=== PATIENT | male | born 1960 | race Caucasian/White ===

== ENCOUNTER 2017-10-12 06:08 | Inpatient (IN) ==
[2017-10-12] MEDS ORDERED: Sod Chloride 0.9% Inj 1,000 ML IV.SIG ONE (06:12)
[2017-10-12] MEDS ORDERED: Pantoprazole Inj 80 MG in Sodium Chlor 0.9% Inj 35 ML IV.SIG ONE (06:30)
--- NOTE | 2017-10-12 06:39 | ED ---
HPI General Chief complaint: Nausea/Vomiting/Diarrhea Stated complaint: Vomiting/Resp Time Seen by Provider: 10/12/17 06:11 History of Present Illness HPI Narrative: 57-year-old male presents to the emergency department from home by EMS transport for evaluation of upper GI bleed. Upon EMS arrival patient was noted to be up on his bed vomiting bright red blood with clots from his oropharynx and nares. Patient also had bright red blood in the gastrostomy tube being of his PEG tube. Patient was noted to be hypotensive and pale. Patient was given a 400 cc bolus of normal saline for blood pressure of 87 systolic. Patient's blood pressure reportedly improved to 120. Patient was estimated to have approximately 800 cc of blood and clot in the toilet and on the bed per the paramedics. Patient was diagnosed with head and neck cancer 6 months ago while he was living in [place] all of his care has been through the [facility] system he just completed 38 radiation treatments last week and 7 rounds of Erbitux chemotherapy as well. Patient has not had any GI bleed history. Patient's had no black or tarry or bloody stools. Patient does complain of abdominal pain. Related Data Home Medications Medication Instructions Recorded Confirmed albuterol sulfate [ProAir HFA] 2 puff INHALATION Q4-6H PRN 10/12/17 10/12/17 amlodipine 10 mg PO DAILY 10/12/17 10/12/17 aspirin [Aspir-81] 81 mg PO DAILY 10/12/17 10/12/17 budesonide-formoterol [Symbicort] 2 puff INHALATION BID 10/12/17 10/12/17 carvedilol 3.125 mg PO BID 10/12/17 10/12/17 cholecalciferol (vitamin D3) 4,000 unit PO DAILY 10/12/17 10/12/17 [Vitamin D3] clopidogrel 75 mg PO DAILY 10/12/17 10/12/17 docusate sodium [Doc-Q-Lace] 100 mg PO DAILY 10/12/17 10/12/17 losartan 25 mg PO DAILY 10/12/17 10/12/17 metformin 500 mg PO DAILY 10/12/17 10/12/17 omega 2-wwi-iix-fish oil [Fish Oil] 10/12/17 oxycodone mg PO PRN 10/12/17 quetiapine 100 mg PO HS 10/12/17 10/12/17 rosuvastatin 20 mg PO DAILY 10/12/17 10/12/17 sertraline [Zoloft] 50 mg PO DAILY 10/12/17 10/12/17 tamsulosin 0.4 mg PO DAILY 10/12/17 10/12/17 thiamine HCl (vitamin B1) [Vitamin 100 mg PO DAILY 10/12/17 10/12/17 B-1] Allergies Allergy/AdvReac Type Severity Reaction Status Date / Time acetaminophen Allergy Severe Wheezing Verified 10/12/17 06:11 [From Tylenol-Codeine #3] codeine Allergy Severe Wheezing Verified 10/12/17 06:11 [From Tylenol-Codeine #3] gabapentin Allergy Severe Hives Verified 10/12/17 06:11 Review of Systems Except as stated in HPI: all other systems reviewed are negative PMFSH History History Provided By: Family Member (Head and neck cancer; CAD, hypertension, diabetes, dyslipidemia, PAD, cardiac catheterization with multiple stents, carotid stents, left upper extremity stents, bilateral lower extremity stents, PEG tube, COPD, questionable cirrhosis, previous tobaccoism previous alcohol use ) Medical History Medical History CAD (coronary artery disease) (Acute) Diabetes (Acute) Throat cancer (Acute) PAD (peripheral artery disease) (Acute) Presence of arterial stent (Acute) Social History Social History Substance History: No History of Abuse Smoking Status: Former smoker How Often Do You Have a Drink Containing Alcohol: Never Recent Travel in [facility] within the Last 8 Weeks: No Recent Out of Country Travel within the Last 8 Weeks: No Immunization History Tetanus Immunization: >5 Years Hx Influenza Vaccine This Season: No Exam Narrative Exam Narrative: GENERAL: Well-nourished, well-developed patient. Ill-appearing male resting supine with nonrebreather mask in place and dried blood about the nares and mouth with mild pallor hypertensive systolic pressure 86; no stridor no hoarseness no respiratory distress. SKIN: Focused skin assessment warm/dry. HEAD: Normocephalic. EYES: No scleral icterus. No injection or drainage. No conjunctival pallor ENT : Edentulous scant dried blood in oropharynx no clots. NECK: Supple, trachea midline. No JVD or lymphadenopathy. Marked erythema with trachea midline and tenderness to palpation to the left paratracheal area. CARDIOVASCULAR: Regular rate and rhythm without murmurs, gallops, or rubs. RESPIRATORY: Breath sounds equal bilaterally. No accessory muscle use. GASTROINTESTINAL: Abdomen soft, diffusely tender with voluntary guarding tender , nondistended. PEG tube in place. MUSCULOSKELETAL: No cyanosis, or edema. BACK: Nontender without obvious deformity. No CVA tenderness. Course Reevaluation(s) Reevaluation #1: Aggregate critical care time was 35 minutes. Time to perform other separately billable procedures was not included in the critical care time. My time did not include minutes spent treating any other patients simultaneously or on activities that did not directly contribute to the patient' s treatment. The services I provided to this patient were to treat and/or prevent clinically significant deterioration that could result in: shock, respiratory failure, I provided critical care services requiring my management, as noted below: Chart data review, documentation time, medication orders and management, vital sign assessments/reviewing monitor data, ordering and reviewing lab tests, ordering and interpreting/reviewing x-rays and diagnostic studies, care of the patient and discussion of the patient with the admitting physicians. Consultations Consultation #1: discussed case with Dr Maximilian Izaguirre honing machine operator tool for admission and Dr Holloway inspector general Time: 07:13 Initial Documented Vital Signs Temperature 98.7 F 10/12/17 06:12 Pulse Rate 91 H 10/12/17 06:12 Respiratory Rate 15 10/12/17 06:12 Blood Pressure 86/52 L 10/12/17 06:12 Pulse Oximetry 100 10/12/17 06:12 Last Documented Vital Signs Temperature 98.7 F 10/12/17 06:12 Pulse Rate 87 10/12/17 07:48 Respiratory Rate 24 10/12/17 07:48 Blood Pressure 121/73 10/12/17 07:48 Pulse Oximetry 99 10/12/17 07:17 Medical Decision Making MDM Narrative Medical decision making narrative: 57-year-old male with throat/head neck cancer recently completing a round of chemotherapy and radiation therapy awakened from sleep with nausea and copious vomiting of red blood and clots with hypotension brief period of normotensive pressure after 400 cc bolus of normal saline and presents here hypotensive with nonrebreather mask in place emergency release blood ordered 2 units as well as bolus of normal saline Protonix bolus and infusion ordered and stat ABG identifies respiratory alkalosis with pH of 7.56 PCO2 of 24 and PO2 of 136 on 4 L/min nasal cannula bicarb is 21 base excess -0.7 with hemoglobin of 8.8 Differential Diagnosis Differential Diagnosis: Upper GI bleed, esophageal varices, erosive gastritis/ peptic ulcer disease, viscus perforation, tumor necrosis with Medical Records None available for review Lab Data Lab results reviewed: Yes I reviewed the patient's lab results. Result diagrams: 10/12/17 06:45 10/12/17 06:45 Lab Results 10/12/17 10/12/17 10/12/17 Range/Units 06:30 06:45 06:45 WBC 13.3 H (4.0-11.0) th/mm3 RBC 3.88 L (4.50-5.90) mil/mm3 Hgb 9.1 L (13.0-17.0) gm/dL Hct 29.0 L (39.0-51.0) % MCV 74.7 L (80.0-100.0) fL MCH 23.4 L (27.0-34.0) pg MCHC 31.3 L (32.0-36.0) % RDW 17.3 H (11.6-17.2) % Plt Count 319 (150-450) th/mm3 MPV 8.2 (7.0-11.0) fL Neut % (Auto) 78.4 H (16.0-70.0) % Lymph % (Auto) 10.3 (9.0-44.0) % [place] % (Auto) 9.2 H (0.0-8.0) % Eos % (Auto) 1.6 (0.0-4.0) % Baso % (Auto) 0.5 (0.0-2.0) % Neut # (Auto) 10.4 H (1.8-7.7) th/mm3 Lymph # (Auto) 1.4 (1.0-4.8) th/mm3 [place] # (Auto) 1.2 H (0.0-0.9) th/mm3 Eos # (Auto) 0.2 (0.0-0.4) th/mm3 Baso # (Auto) 0.1 (0.0-0.2) th/mm3 WBC Differential . Differential Comment Auto diff final PT 12.4 H (9.8-11.6) sec INR 1.2 Ratio APTT 23.4 L (24.3-30.1) sec Puncture Site Left femoral Patient Temperature 98.6 O2 Saturation 98 (90-100) % ABG pH 7.56 H* (7.380-7.420) ABG pCO2 24 L* (38-42) mmHg ABG pO2 136 H (61-120) mmHg ABG HCO3 21 L (22-26) mmol/L ABG O2 Content 12.4 (12.0-20.0) Vol % ABG Base Excess -0.7 (-2-2) mmol/L ABG Methemoglobin 0.5 (0-2) % Hemoglobin 8.8 L (12.0-16.0) G/DL Carboxyhemoglobin 1.2 (0-4) % O2 Delivery Device Nasal cannula Liter Flow 4.00 L/M Inspired O2 21 % Critical Value Yes Sodium (136-145) meq/L Potassium (3.5-5.1) meq/L Chloride (98-107) meq/L Carbon Dioxide (21.0-32.0) meq/L Anion Gap (5-15) meq/L BUN (7-18) mg/dL Creatinine (0.60-1.30) mg/dL Estimated GFR (>89) mL/min Random Glucose (74-106) mg/dL Calcium (8.5-10.1) mg/dL Magnesium (1.5-2.5) mg/dL Total Bilirubin (0.2-1.0) mg/dL AST (15-37) U/L ALT (12-78) U/L Alkaline Phosphatase (45-117) U/L Ammonia (11-32) mcmol/L Total Protein (6.4-8.2) g/dL Albumin (3.4-5.0) g/dL Lipase (73-393) U/L Serum Alcohol (0-5) mg/dL Blood Type Antibody Screen MTS Gel Crossmatch Bld Prod Order Comment 10/12/17 10/12/17 10/12/17 Range/Units 06:45 06:45 06:45 WBC (4.0-11.0) th/mm3 RBC (4.50-5.90) mil/mm3 Hgb (13.0-17.0) gm/dL Hct (39.0-51.0) % MCV (80.0-100.0) fL MCH (27.0-34.0) pg MCHC (32.0-36.0) % RDW (11.6-17.2) % Plt Count (150-450) th/mm3 MPV (7.0-11.0) fL Neut % (Auto) (16.0-70.0) % Lymph % (Auto) (9.0-44.0) % [place] % (Auto) (0.0-8.0) % Eos % (Auto) (0.0-4.0) % Baso % (Auto) (0.0-2.0) % Neut # (Auto) (1.8-7.7) th/mm3 Lymph # (Auto) (1.0-4.8) th/mm3 [place] # (Auto) (0.0-0.9) th/mm3 Eos # (Auto) (0.0-0.4) th/mm3 Baso # (Auto) (0.0-0.2) th/mm3 WBC Differential Differential Comment PT (9.8-11.6) sec INR Ratio APTT (24.3-30.1) sec Puncture Site Patient Temperature O2 Saturation (90-100) % ABG pH (7.380-7.420) ABG pCO2 (38-42) mmHg ABG pO2 (61-120) mmHg ABG HCO3 (22-26) mmol/L ABG O2 Content (12.0-20.0) Vol % ABG Base Excess (-2-2) mmol/L ABG Methemoglobin (0-2) % Hemoglobin (12.0-16.0) G/DL Carboxyhemoglobin (0-4) % O2 Delivery Device Liter Flow L/M Inspired O2 % Critical Value Sodium 139 (136-145) meq/L Potassium 4.6 (3.5-5.1) meq/L Chloride 107 (98-107) meq/L Carbon Dioxide 24.8 (21.0-32.0) meq/L Anion Gap 7 (5-15) meq/L BUN 17 (7-18) mg/dL Creatinine 0.88 (0.60-1.30) mg/dL Estimated GFR Greater than 89 (>89) mL/min Random Glucose 149 H (74-106) mg/dL Calcium 8.1 L (8.5-10.1) mg/dL Magnesium 1.6 (1.5-2.5) mg/dL Total Bilirubin 0.3 (0.2-1.0) mg/dL AST 9 L (15-37) U/L ALT 22 (12-78) U/L Alkaline Phosphatase 48 (45-117) U/L Ammonia 19 (11-32) mcmol/L Total Protein 5.9 L (6.4-8.2) g/dL Albumin 2.4 L (3.4-5.0) g/dL Lipase 87 (73-393) U/L Serum Alcohol Less than 3 (0-5) mg/dL Blood Type O Positive Antibody Screen Negative MTS Gel Crossmatch See Detail Bld Prod Order Comment Imaging Data Radiologist's impression: Chest X-Ray 10/12/17 06:12 CONCLUSION: No acute cardiopulmonary disease. Discharge Plan Discharge Disposition Patient Disposition: 30 Still Patient Discharge Condition Condition: Fair Discharge Details Diagnosis: Hypotension, Throat cancer, Upper GI bleed, Head and neck cancer Physicians Team ED Provider: Shannon Tabares Attending Provider: India Izaguirre Other Providers: Leanne Wood Status ED Status: Admitted Patient
[2017-10-12 06:42] LABS: ABG Base Excess -0.7 mmol/L (-2-2); ABG PCO2 24 mmHg (38-42); ABG PO2 136 mmHg (61-120)
[2017-10-12] MEDS: Pantoprazole Inj 80 MG in Sodium Chlor 0.9% Inj 100 ML IV.CONT SCH (06:44)
[2017-10-12 06:55] LABS: Baso # (Auto) 0.1 th/mm3 (0.0-0.2); Baso % (Auto) 0.5 % (0.0-2.0); Eos # (Auto) 0.2 th/mm3 (0.0-0.4); Eos % (Auto) 1.6 % (0.0-4.0); Hemoglobin 9.1 gm/dL (13.0-17.0); Lymph # (Auto) 1.4 th/mm3 (1.0-4.8); Lymph % (Auto) 10.3 % (9.0-44.0); Mean Corpuscular HGB Conc 31.3 % (32.0-36.0); Mean Corpuscular Hemoglobin 23.4 pg (27.0-34.0); Mean Corpuscular Volume 74.7 fL (80.0-100.0); Mean Platelet Volume 8.2 fL (7.0-11.0); Mono # (Auto) 1.2 th/mm3 (0.0-0.9); Mono % (Auto) 9.2 % (0.0-8.0); Neut # (Auto) 10.4 th/mm3 (1.8-7.7); Neut % (Auto) 78.4 % (16.0-70.0); Platelet Count 319 th/mm3 (150-450); Red Blood Count 3.88 mil/mm3 (4.50-5.90); Red Cell Distribution Width 17.3 % (11.6-17.2); White Blood Count 13.3 th/mm3 (4.0-11.0)
--- NOTE | 2017-10-12 06:58 | XR ---
EXAM DATE: 10/12/2017 6:49 AM EDT AGE/SEX: 57 years / Male INDICATIONS: Hematemesis. CLINICAL DATA: This is the patient's initial encounter. Patient reports that signs and symptoms have been present for 1 day and indicates a pain score of 0/10. MEDICAL/SURGICAL HISTORY: Diabetes. Throat cancer. None. COMPARISON: No prior exams available for comparison. FINDINGS: The lungs are clear without infiltrate, nodule, or mass. There is no appreciable pleural effusion for technique. Heart and mediastinum are unremarkable. CONCLUSION: No acute cardiopulmonary disease. Electronically signed by: Miguelina Zurita MD 10/12/2017 6:57 AM EDT
[2017-10-12] MEDS ORDERED: Pantoprazole Inj 80 MG in Sodium Chlor 0.9% Inj 100 ML IV.CONT SCH (07:00)
[2017-10-12 07:14] LABS: Alkaline Phosphatase 48 U/L (45-117); Total Protein 5.9 g/dL (6.4-8.2)
[2017-10-12 07:24] LABS: Activated Partial Thrombo Time 23.4 sec (24.3-30.1); Alanine Aminotransferase 22 U/L (12-78); Albumin 2.4 g/dL (3.4-5.0); Anion Gap 7 meq/L (5-15); Aspartate Aminotransferase 9 U/L (15-37); Blood Urea Nitrogen 17 mg/dL (7-18); Calcium 8.1 mg/dL (8.5-10.1); Carbon Dioxide 24.8 meq/L (21.0-32.0); Chloride 107 meq/L (98-107); Glomerular Filtration Rate Greater Than 89 mL/min (>89); Glucose,Random 149 mg/dL (74-106); INR 1.2 Ratio; Lipase 87 U/L (73-393); Magnesium 1.6 mg/dL (1.5-2.5); Prothrombin Time 12.4 sec (9.8-11.6); Sodium 139 meq/L (136-145)
[2017-10-12 07:25] LABS: Potassium 4.6 meq/L (3.5-5.1)
--- NOTE | 2017-10-12 07:25 | P.HPCC ---
History of Present Illness Primary Care Physician: UNKNOWN Chief Complaint: Hemetemesis History of Present Illness: Patient is a 57-year-old male with past medical history significant for head and neck cancer status post completion of radiation last week, PEG tube placement earlier this month, history of coronary artery disease on aspirin and Plavix, history of COPD and history of alcohol abuse who presented to the emergency department with complaints of upper GI bleed, vomiting clots approximately 400 mL. On my interview he clarifies that he was vomiting blood and also there was bright red blood from the PEG tube. There was no hemoptysis. Patient was noted to be hypotensive and pale and EMS gave 400 cc normal saline bolus. Patient was diagnosed with head and neck cancer 6 months, getting treatment at [facility], [place], operated by [facility]; just completed 38 radiation treatments last week and 7 rounds of Erbitux chemotherapy, (Dr. Rafita Mcclure, oncologist). Patient has no history of GI bleed. He has history of heavy alcohol use and tobacco use but quit both in March 2016 when he had a heart attack I evaluated the patient in the ED. There is stigmata of upper GI bleed. Patient also complains about abdominal pain and is tender to palpation. Patient 's blood pressure is improved after receiving total of 800 mL of normal saline, and receiving 1 unit of PRBC unmatched now. Patient is started on Protonix infusion, I would also add octreotide infusion and start Rocephin for SBP prophylaxis given history of heavy alcohol use. GI consult is pending. CT abdomen pelvis ordered by ED doctor - Diagnosis (1) Upper GI bleed (2) Hypotension (3) Head and neck cancer Inpatient Certification: I certify that the inpatient services were ordered in accordance with Medicare regulations governing the order. This includes certification that hospital inpatient services are reasonable and necessary and in the case of services not specified as inpatient-only under 42 CFR 419.22(n), that they are appropriately provided as inpatient services in accordance to with the 2-midnight benchmark under 43 CFR 412.3(e) Estimated Total Length of Stay (Days): 5 Plans for Post Hospital Care: Not yet determined Review of Systems All other systems reviewed negative except as stated in HPI PMFSH - History History Provided By: Family Member (Head and neck cancer; CAD, hypertension, diabetes, dyslipidemia, PAD, cardiac catheterization with multiple stents, carotid stents, left upper extremity stents, bilateral lower extremity stents, PEG tube, COPD, questionable cirrhosis, previous tobaccoism previous alcohol use ) - Medical History Medical History: Medical History (Last Updated 10/12/17 @ 07:26 by India Izaguirre MD) CAD (coronary artery disease) (Acute) Diabetes (Acute) Throat cancer (Acute) PAD (peripheral artery disease) Presence of arterial stent - Tobacco History Smoking Status: Former smoker - Alcohol History How Often Do You Have a Drink Containing Alcohol: Never (No current use, quit in 2017, used to be heavy drinker) - Substance Use History Substance History: No History of Abuse - Travel History Recent Travel in the [place] Within the Last 8 Weeks: No Recent Travel Out of the Country Within the Last 8 Weeks: No - Immunization History Tetanus Immunization: >5 Years Hx Influenza Vaccine This Season: No Medications and Allergies Active Medications: Active Medications Albuterol (Duoneb Neb (Prn)) 1 ampul NEB Q2HR NEB PRN PRN Reason: WHEEZING Chlorhexidine Gluconate (Chlorhexidine 2% Cloth) 3 pack TOPICAL DAILY@0400 JUAN Stop: 10/18/17 03:59 Chlorhexidine Gluconate (Chlorhexidine 2% Cloth) 3 pack TOPICAL DAILY@0400 PRN PRN Reason: Extra cloth needed Stop: 10/18/17 03:59 Pantoprazole Sodium 80 mg/ (Sodium Chloride) 100 mls @ 10 mls/hr IV.CONT CONT JUAN Last Admin: 10/12/17 06:44 Dose: 10 mls/hr Octreotide Acetate 500 mcg/ (Sodium Chloride) 500.5 mls @ 25.02 mls/hr IV.CONT .Q20H1M JUAN Ceftriaxone Sodium 1,000 mg/ (Sodium Chloride) 100 mls @ 200 mls/hr IV.SIG ONCE ONE Stop: 10/12/17 07:59 Sodium Chloride (Ns Inj) 1,000 mls @ 84 mls/hr IV.CONT .[id number] JUAN Octreotide Acetate (Sandostatin Inj) 50 mcg IV.PUSH ONCE ONE Stop: 10/12/17 08:01 Sodium Chloride (Ns Flush) 2 ml IV.FLUSH BID JUAN Sodium Chloride (Ns Flush) 2 ml IV.FLUSH UNSCH PRN PRN Reason: FLUSH AFTER USING IV ACCESS Allergies Allergy/AdvReac Type Severity Reaction Status Date / Time acetaminophen Allergy Severe Wheezing Verified 10/12/17 06:11 [From Tylenol-Codeine #3] codeine Allergy Severe Wheezing Verified 10/12/17 06:11 [From Tylenol-Codeine #3] gabapentin Allergy Severe Hives Verified 10/12/17 06:11 Home Medications Medication Instructions Recorded Confirmed Type albuterol sulfate [ProAir HFA] 2 puff INHALATION Q4-6H PRN 10/12/17 10/12/17 History amlodipine 10 mg PO DAILY 10/12/17 10/12/17 History aspirin [Aspir-81] 81 mg PO DAILY 10/12/17 10/12/17 History budesonide-formoterol [Symbicort] 2 puff INHALATION BID 10/12/17 10/12/17 History carvedilol 3.125 mg PO BID 10/12/17 10/12/17 History cholecalciferol (vitamin D3) 4,000 unit PO DAILY 10/12/17 10/12/17 History [Vitamin D3] clopidogrel 75 mg PO DAILY 10/12/17 10/12/17 History docusate sodium [Doc-Q-Lace] 100 mg PO DAILY 10/12/17 10/12/17 History losartan 25 mg PO DAILY 10/12/17 10/12/17 History metformin 500 mg PO DAILY 10/12/17 10/12/17 History omega 4-oza-eml-fish oil [Fish Oil] 10/12/17 History oxycodone mg PO PRN 10/12/17 History quetiapine 100 mg PO HS 10/12/17 10/12/17 History rosuvastatin 20 mg PO DAILY 10/12/17 10/12/17 History sertraline [Zoloft] 50 mg PO DAILY 10/12/17 10/12/17 History tamsulosin 0.4 mg PO DAILY 10/12/17 10/12/17 History thiamine HCl (vitamin B1) [Vitamin 100 mg PO DAILY 10/12/17 10/12/17 History B-1] Results - Labs CBC & Chem 7: 10/12/17 06:45 10/12/17 06:45 Labs: Short CBC 10/12/17 Range/Units 06:45 WBC 13.3 H (4.0-11.0) th/mm3 Hgb 9.1 L (13.0-17.0) gm/dL Hct 29.0 L (39.0-51.0) % Plt Count 319 (150-450) th/mm3 Liver Function 10/12/17 Range/Units 06:45 Total Bilirubin 0.3 (0.2-1.0) mg/dL Alkaline Phosphatase 48 (45-117) U/L - Imaging Impressions Chest X-Ray 10/12/17 06:12 CONCLUSION: No acute cardiopulmonary disease. Exam Vital signs: Vital Signs 10/12/17 06:12 10/12/17 06:34 10/12/17 06:40 Temperature 98.7 F Pulse Rate 91 H 93 H Respiratory Rate 15 15 Blood Pressure 86/52 L 125/65 Pulse Oximetry 100 100 99 10/12/17 07:17 Temperature Pulse Rate 86 Respiratory Rate 20 Blood Pressure 125/69 Pulse Oximetry 99 Intake & Output 10/11/17 10/12/17 10/12/17 18:59 06:59 18:59 Weight 77.111 kg Narrative: GENERAL: Well-nourished, well-developed patient. Ill-appearing dried blood in oropharynx. Appears anxious SKIN: Pale/warm/dry. HEAD: Normocephalic. Atraumatic EYES: No scleral icterus. No injection or drainage. Pallor present. Right eye severe cataract, blind ENT: Edentulous scant dried blood in oropharynx. NECK: Supple, trachea midline. No JVD or lymphadenopathy. Radiation scar and bones on the left side of the neck CARDIOVASCULAR: Tachycardic rate and rhythm without murmurs, gallops, or rubs. RESPIRATORY: Breath sounds equal bilaterally. No accessory muscle use. GASTROINTESTINAL: Abdomen soft, diffusely tender nondistended. PEG tube in place with some old blood MUSCULOSKELETAL: No cyanosis, or edema. NEURO: Alert awake oriented no focal deficits Septic Shock Reassessment Septic shock perfusion: reassessment completed Caprini VTE Risk Assessment Caprini VTE Risk Assessment: Moderate/High Risk (score >= 2) Caprini Risk Assessment Model: Point Value = 1 Point Value = 2 Point Value = 3 Point Value = 5 Age 41-60 Minor surgery BMI > 25 kg/m2 Swollen legs Varicose veins or History of unexplained or recurrent spontaneous Oral contraceptives or hormone replacement Sepsis (< 1 month) Serious lung disease, including pneumonia (< 1 month) Abnormal pulmonary function Acute myocardial infarction Congestive heart failure (< 1 month) History of inflammatory bowel disease Medical patient at bed rest Age 61-74 Arthroscopic surgery Major open surgery (> 45 min) Laparoscopic surgery (> 45 min) Malignancy Confined to bed (> 72 hours) Immobilizing plaster cast Central venous access Age >= 75 History of VTE Family history of VTE Factor V Leiden Prothrombin [id number] Lupus anticoagulant Anticardiolipin antibodies Elevated serum homocysteine Heparin-induced thrombocytopenia Other congenital or acquired thrombophilia Stroke (< 1 month) Elective arthroplasty Hip, pelvis, or leg fracture Acute spinal cord injury (< 1 month) Prophylaxis Regimen: Total Risk Factor Score Risk Level Prophylaxis Regimen 0-1 Low Early ambulation 2 Moderate Order ONE of the following: *Sequential Compression Device (SCD) *Heparin 5000 units SQ BID 3-4 Higher Order ONE of the following medications: *Heparin 5000 units SQ TID *Enoxaparin/Lovenox 40 mg SQ daily (WT < 150 kg, CrCl > 30 mL/min) *Enoxaparin/Lovenox 30 mg SQ daily (WT < 150 kg, CrCl > 10-29 mL/min) *Enoxaparin/Lovenox 30 mg SQ BID (WT < 150 kg, CrCl > 30 mL/min) AND/OR *Sequential Compression Device (SCD) 5 or more Highest Order ONE of the following medications: *Heparin 5000 units SQ TID (Preferred with Epidurals) *Enoxaparin/Lovenox 40 mg SQ daily (WT < 150 kg, CrCl > 30 mL/min) *Enoxaparin/Lovenox 30 mg SQ daily (WT < 150 kg, CrCl > 10-29 mL/min) *Enoxaparin/Lovenox 30 mg SQ BID (WT < 150 kg, CrCl > 30 mL/min) AND *Sequential Compression Device (SCD) Assessment and Plan - Problem List (1) Upper GI bleed Code(s): K92.2 - Gastrointestinal hemorrhage, unspecified Status: Acute (2) Hypotension Code(s): I95.9 - Hypotension, unspecified Status: Acute (3) Head and neck cancer Code(s): C76.0 - Malignant neoplasm of head, face and neck Status: Chronic - Assessment and Plan Plan: System based assessment and plan NEURO: -Hold Seroquel and Zoloft -Monitor neuro status closely RESP: -DuoNeb every 6 hours as needed -Continue Symbicort inhaler CV: Hypotension Tachycardia Coronary artery disease -Normal saline IV fluids 1L bolus and 84 ml per hour, check troponin -Use Jefe-Synephrine if needed to keep map above 65 -Hold amlodipine, hold losartan -Hold aspirin and Plavix GI: Upper GI bleed PEG tube placement about 3 weeks ago -N.p.o., IV Protonix 80 mg bolus and 8 mg/h infusion -Sandostatin 50 mcg IV push 1 and infusion at 50 mcg/h -Rocephin for GI prophylaxis -CT abdomen pelvis for abdominal pain -GI consult with Dr. Wood is pending at this time : -Monitor renal function closely. No indication for Choudhary's catheter ID: -Rocephin for SBP prophylaxis until variceal bleeding is ruled out HEME: Anemia requiring transfusion Head and neck cancer status post chemoradiation -Monitor CBC, coags -Transfuse 2 units PRBC -Oncologist is Dr. Mcclure -s/p 38 radiation treatments last week and 7 rounds of Erbitux chemotherapy ENDO: Type 2 diabetes -Electrolyte replacement per protocol -Sliding scale insulin PROPH: -Bilateral lower extremity SCDs/SPRING. IV Protonix. Avoid chemical DVT prophylaxis due to GI bleed LINES: -Utilize peripheral IVs, central line if needed CC time 42 min Code Status: Full code
[2017-10-12] MEDS ORDERED: Octreotide Inj 50 MCG/ML Vial IV.PUSH ONE (08:00)
[2017-10-12] MEDS ORDERED: Magnesium Sulfate Inj 2 GM in Sodium Chlor 0.9% Inj 96 ML IV.SIG PRN (08:37)
[2017-10-12] MEDS ORDERED: Magnesium Oxide 400 MG Tablet PO PRN (08:37)
[2017-10-12] MEDS ORDERED: Potassium Chloride 25 MEQ Effervescent Tablet PO PRN (08:37)
[2017-10-12] MEDS ORDERED: Sodium Phosphate Inj 30 MMOL in Sodium Chlor 0.9% Inj 250 ML IV.SIG PRN (08:37)
[2017-10-12] MEDS ORDERED: Potassium Chlor 20 mEq Premix 20 MEQ/100 ML PIGGYBACK IV.SIG PRN ×2 (08:37)
[2017-10-12] MEDS ORDERED: Dextrose 50% in Water 50 ML Vial IV.PUSH PRN (08:37)
[2017-10-12] MEDS ORDERED: Potassium Phosphate Inj 30 MMOL in Sodium Chlor 0.9% Inj 250 ML IV.SIG PRN (08:37)
[2017-10-12] MEDS ORDERED: Magnesium Sulfate Inj 4 GM in Sodium Chlor 0.9% Inj 92 ML IV.SIG PRN (08:37)
[2017-10-12] MEDS ORDERED: Potassium Phosphate 500 MG Soluble Tablet PO PRN ×2 (08:37)
[2017-10-12] MEDS ORDERED: Potassium Chlor 40 mEq Premix 40 MEQ/100 ML PIGGYBACK IV.SIG PRN (08:37)
--- NOTE | 2017-10-12 09:13 | P.CONGI ---
History of Present Illness Consult date: 10/12/17 Consult reason: Upper GI bleed Chief complaint: Upper GI Bleed, Hemorrhagic Shock, Larygeal Cancer History of Present Illness: This is 57-year-old male presents to the emergency department from home by EMS transport for evaluation of upper GI bleed. Patient started vomiting bright red blood with clots from his oropharynx and nares this am X2. Patient also had bright red blood in the gastrostomy tube. Patient was noted to be hypotensive. Patient was diagnosed with head and neck cancer 6 months ago while he was living in [place] all of his care has been through the [facility] he just completed 38 radiation treatments last week and 7 rounds of Erbitux chemotherapy as well. No prior hx of GI bleed. Denies melena or hematochezia. Endorses diffused abd pain upon palpation. Pt is on Plavix, ASA, and admits to taking goody powder frequently. He has never had colonoscopy before. hgb on arrival 9.1, received one unit of blood, 3 more ordered. He was started on PPI Gtt and octreotide drip. CT done and still pending. Review of Systems All other systems reviewed negative except as stated in HPI PMFSH - History History Provided By: Family Member (Head and neck cancer; CAD, hypertension, diabetes, dyslipidemia, PAD, cardiac catheterization with multiple stents, carotid stents, left upper extremity stents, bilateral lower extremity stents, PEG tube, COPD, questionable cirrhosis, previous tobaccoism previous alcohol use ) - Medical History Medical History: Medical History (Last Reviewed 10/12/17 @ 09:59 by Wilmer Aguilar) CAD (coronary artery disease) (Acute) Diabetes (Acute) Throat cancer (Acute) PAD (peripheral artery disease) Presence of arterial stent - Tobacco History Smoking Status: Former smoker - Alcohol History How Often Do You Have a Drink Containing Alcohol: Never (No current use, quit in 2017, used to be heavy drinker) - Substance Use History Substance History: No History of Abuse - Travel History Recent Travel in the [place] Within the Last 8 Weeks: No Recent Travel Out of the Country Within the Last 8 Weeks: No - Immunization History Tetanus Immunization: >5 Years Hx Influenza Vaccine This Season: No Medications and Allergies Active Medications: Active Medications Albuterol (Duoneb Neb (Prn)) 1 ampul NEB Q2HR NEB PRN PRN Reason: WHEEZING Chlorhexidine Gluconate (Chlorhexidine 2% Cloth) 3 pack TOPICAL DAILY@0400 JUAN Stop: 10/18/17 03:59 Chlorhexidine Gluconate (Chlorhexidine 2% Cloth) 3 pack TOPICAL DAILY@0400 PRN PRN Reason: Extra cloth needed Stop: 10/18/17 03:59 Dextrose (D50w Vial) 50 ml IV.PUSH UNSCH PRN PRN Reason: PER HYPOGLYCEMIA PROTOCOL Glucagon (Glucagon Inj) 1 mg OTHER UNSCH PRN PRN Reason: for Hypoglycemia Protocol Pantoprazole Sodium 80 mg/ (Sodium Chloride) 100 mls @ 10 mls/hr IV.CONT CONT [facility] Last Admin: 10/12/17 06:44 Dose: 10 mls/hr Octreotide Acetate 500 mcg/ (Sodium Chloride) 500.5 mls @ 25.02 mls/hr IV.CONT .Q20H1M [facility] Sodium Chloride (Ns Inj) 1,000 mls @ 84 mls/hr IV.CONT .[id number] [facility] Magnesium Sulfate Inj 4 gm/ (Sodium Chloride) 100 mls @ 50 mls/hr IV.SIG UNSCH PRN PRN Reason: For Magnesium 0.9 - 1.1 mg/dL Potassium Chloride (Kcl 40 Meq Premix Inj) 40 meq in 100 mls @ 50 mls/hr IV.SIG Q2H PRN PRN Reason: For Potassium 2.8 - 3.2 mEq/L Potassium Chloride (Kcl 20 Meq Premix Inj) 20 meq in 100 mls @ 50 mls/hr IV.SIG Q2H PRN PRN Reason: For Potassium 3.3 - 3.5 mEq/L Potassium Chloride (Kcl 40 Meq Premix Inj) 40 meq in 100 mls @ 25 mls/hr IV.SIG UNSCH PRN PRN Reason: For Potassium 3.3 - 3.5 mEq/L Potassium Chloride (Kcl 20 Meq Premix Inj) 20 meq in 100 mls @ 50 mls/hr IV.SIG Q2H PRN PRN Reason: For Potassium 2.8 - 3.2 mEq/L Potassium Phosphate 30 mmol/ (Sodium Chloride) 260 mls @ 42 mls/hr IV.SIG UNSCH PRN PRN Reason: SEE LABEL COMMENTS Sodium Phosphate 30 mmol/ (Sodium Chloride) 260 mls @ 42 mls/hr IV.SIG UNSCH PRN PRN Reason: For Phosphorus < 2.5 mg/dL Magnesium Sulfate Inj 2 gm/ (Sodium Chloride) 100 mls @ 50 mls/hr IV.SIG UNSCH PRN PRN Reason: For Magnesium 1.2 - 1.6 mg/dL Insulin Human Regular (Novolin R Correctional Sugar Inj) 0 units SQ Q6HR JUAN; Protocol Magnesium Oxide (Mag-Ox) 800 mg PO UNSCH PRN PRN Reason: For Magnesium 1.2 - 1.6 mg/dL Potassium Bicarb/Potassium Chloride (K-Lyte Cl Eff) 50 meq PO UNSCH PRN PRN Reason: For Potassium 3.3 - 3.5 mEq/L Potassium Phosphate (K-Phos Original) 2,000 mg PO Q4H PRN PRN Reason: Phosphorus Less Than 2.5 mg/dL Potassium Phosphate (K-Phos Original) 2,000 mg PO UNSCH PRN PRN Reason: SEE LABEL COMMENTS Sodium Chloride (Ns Flush) 2 ml IV.FLUSH BID JUAN Sodium Chloride (Ns Flush) 2 ml IV.FLUSH UNSCH PRN PRN Reason: FLUSH AFTER USING IV ACCESS Allergies Allergy/AdvReac Type Severity Reaction Status Date / Time acetaminophen Allergy Severe Wheezing Verified 10/12/17 06:11 [From Tylenol-Codeine #3] codeine Allergy Severe Wheezing Verified 10/12/17 06:11 [From Tylenol-Codeine #3] gabapentin Allergy Severe Hives Verified 10/12/17 06:11 Home Medications Medication Instructions Recorded Confirmed Type albuterol sulfate [ProAir HFA] 2 puff INHALATION Q4-6H PRN 10/12/17 10/12/17 History amlodipine 10 mg PO DAILY 10/12/17 10/12/17 History aspirin [Aspir-81] 81 mg PO DAILY 10/12/17 10/12/17 History budesonide-formoterol [Symbicort] 2 puff INHALATION BID 10/12/17 10/12/17 History carvedilol 3.125 mg PO BID 10/12/17 10/12/17 History cholecalciferol (vitamin D3) 4,000 unit PO DAILY 10/12/17 10/12/17 History [Vitamin D3] clopidogrel 75 mg PO DAILY 10/12/17 10/12/17 History docusate sodium [Doc-Q-Lace] 100 mg PO DAILY 10/12/17 10/12/17 History losartan 25 mg PO DAILY 10/12/17 10/12/17 History metformin 500 mg PO DAILY 10/12/17 10/12/17 History omega 6-dui-svb-fish oil [Fish Oil] 10/12/17 History oxycodone mg PO PRN 10/12/17 History quetiapine 100 mg PO HS 10/12/17 10/12/17 History rosuvastatin 20 mg PO DAILY 10/12/17 10/12/17 History sertraline [Zoloft] 50 mg PO DAILY 10/12/17 10/12/17 History tamsulosin 0.4 mg PO DAILY 10/12/17 10/12/17 History thiamine HCl (vitamin B1) [Vitamin 100 mg PO DAILY 10/12/17 10/12/17 History B-1] Exam Vital signs: Vital Signs 10/12/17 06:12 10/12/17 06:34 10/12/17 06:40 Temperature 98.7 F Pulse Rate 91 H 93 H Respiratory Rate 15 15 Blood Pressure 86/52 L 125/65 Pulse Oximetry 100 100 99 10/12/17 07:17 10/12/17 07:48 Temperature Pulse Rate 86 87 Respiratory Rate 20 24 Blood Pressure 125/69 121/73 Pulse Oximetry 99 Intake & Output 10/11/17 10/12/17 10/12/17 18:59 06:59 18:59 Intake Total 100 / 100 Balance 100 / 100 Weight 77.111 kg Intake: IV 100 / 100 Rocephin Inj 1,000 MG In NS Inj 100 / 100 100 ML @ 200 mls/hr IV.SIG ONCE ONE Rx#:[id number] - Constitutional no acute distress - Routine HEENT Exam Head: Present: normocephalic - Routine Respiratory Exam Present: CTA bilaterally - Routine Cardiovascular Exam Present: RRR - Routine Abdominal Exam Present: soft, normoactive bowel sounds, tenderness Comments: G tube - Routine Extremities Exam Absent: clubbing, edema - Routine Skin Exam Present: intact, dry. Absent: jaundice - Routine Neurological Exam Present: alert, oriented X3 Results - Labs CBC & Chem 7: 10/12/17 06:45 10/12/17 06:45 Labs: Laboratory Results - last 24 hr 10/12/17 10/12/17 10/12/17 06:30 06:45 06:45 WBC 13.3 H RBC 3.88 L Hgb 9.1 L Hct 29.0 L MCV 74.7 L MCH 23.4 L MCHC 31.3 L RDW 17.3 H Plt Count 319 MPV 8.2 Neut % (Auto) 78.4 H Lymph % (Auto) 10.3 [place] % (Auto) 9.2 H Eos % (Auto) 1.6 Baso % (Auto) 0.5 Neut # (Auto) 10.4 H Lymph # (Auto) 1.4 [place] # (Auto) 1.2 H Eos # (Auto) 0.2 Baso # (Auto) 0.1 WBC Differential . Differential Comment Auto diff final PT 12.4 H INR 1.2 APTT 23.4 L Puncture Site Left femoral Patient Temperature 98.6 O2 Saturation 98 ABG pH 7.56 H* ABG pCO2 24 L* ABG pO2 136 H ABG HCO3 21 L ABG O2 Content 12.4 ABG Base Excess -0.7 ABG Methemoglobin 0.5 Hemoglobin 8.8 L Carboxyhemoglobin 1.2 O2 Delivery Device Nasal cannula Liter Flow 4.00 Inspired O2 21 Critical Value Yes Sodium Potassium Chloride Carbon Dioxide Anion Gap BUN Creatinine Estimated GFR Random Glucose Calcium Magnesium Total Bilirubin AST ALT Alkaline Phosphatase Ammonia Total Protein Albumin Lipase Serum Alcohol Blood Type Antibody Screen MTS Gel Crossmatch Bld Prod Order Comment 10/12/17 10/12/17 10/12/17 06:45 06:45 06:45 WBC RBC Hgb Hct MCV MCH MCHC RDW Plt Count MPV Neut % (Auto) Lymph % (Auto) [place] % (Auto) Eos % (Auto) Baso % (Auto) Neut # (Auto) Lymph # (Auto) [place] # (Auto) Eos # (Auto) Baso # (Auto) WBC Differential Differential Comment PT INR APTT Puncture Site Patient Temperature O2 Saturation ABG pH ABG pCO2 ABG pO2 ABG HCO3 ABG O2 Content ABG Base Excess ABG Methemoglobin Hemoglobin Carboxyhemoglobin O2 Delivery Device Liter Flow Inspired O2 Critical Value Sodium 139 Potassium 4.6 Chloride 107 Carbon Dioxide 24.8 Anion Gap 7 BUN 17 Creatinine 0.88 Estimated GFR Greater than 89 Random Glucose 149 H Calcium 8.1 L Magnesium 1.6 Total Bilirubin 0.3 AST 9 L ALT 22 Alkaline Phosphatase 48 Ammonia 19 Total Protein 5.9 L Albumin 2.4 L Lipase 87 Serum Alcohol Less than 3 Blood Type O Positive Antibody Screen Negative MTS Gel Crossmatch See Detail Bld Prod Order Comment - Imaging Impressions Chest X-Ray 10/12/17 06:12 CONCLUSION: No acute cardiopulmonary disease. Assessment and Plan - Plan - Upper GI bleed/significant hematemesis with bright red blood with clots from his oropharynx and nares this am X2. Patient also had bright red blood in the gastrostomy tube. Pt is on Plavix, ASA, and admits to taking goody powder frequently. He has never had EGD/colonoscopy before. hgb on arrival 9.1, received one unit of blood, 3 more ordered. He was started on PPI Gtt and octreotide drip. possible PUD, esophagitis, esophageal ulcers, AVMs - Abd pain- CT on 10/12/17 showed multiple lung base nodules bilaterally nonspecific, however metastatic dz not excluded. pneumoperitoneum primarily in the mesentery around the right colon but also in the upper left and right abdomen. Pneumatosis primarily of the right colon. - ?ischemic colitis- secondary to upper GI hemorrhage precipitated hypotension. GS on the case - Hx of head and neck cancer 6 months ago while he was living in [place] all of his care has been through the [facility] system he just completed 38 radiation treatments last week and 7 rounds of Erbitux chemotherapy as well. - hx of cardiac stents- On Plavix and ASA Plan: - NPO - EGD was scheduled but cancelled now, Ct showed free air - GS consulted, he will be taken to OR, case discussed with Dr. Houser - Cont. monitoring hh and transfusing as needed - Cont. PPI Gtt and octreotide drip - Supportive care - Pt seen and examined by Dr. Rodgers and myself and this note is written on his behalf.
--- NOTE | 2017-10-12 10:14 | CT ---
EXAM DATE: 10/12/2017 8:32 AM EDT AGE/SEX: 57 years / Male INDICATIONS: Diffuse abdomen pain and bloody emesis today. CLINICAL DATA: This is the patient's initial encounter. Patient reports that signs and symptoms have been present for 1 day and indicates a pain score of 7/10. MEDICAL/SURGICAL HISTORY: Diabetes. throat cancer . PEG tube placement ORAL CONTRAST: No oral contrast ingested. RADIATION DOSE: 6.71 CTDI (mGy) COMPARISON: No prior exams available for comparison. TECHNIQUE: Multiple contiguous axial images were obtained through the abdomen and pelvis following b olus infusion of 97 ml Omnipaque 350 (iohexol) nonionic water-soluble contrast as a single exam dos e. No oral contrast ingested. Using automated exposure control and adjustment of the mA and/or kV ac cording to patient size, radiation dose was kept as low as reasonably achievable to obtain optimal di agnostic quality images. DICOM format image data is available electronically for review and comparis on. FINDINGS: Abdomen CT: The spleen, pancreas, kidneys, adrenals are unremarkable. There is a small subcentimeter cyst right h epatic lobe. There is no evidence for any appreciable pathological adenopathy, free fluid, or bowel o bstruction. There is a small 5 mm nodule in the left lower lobe posteriorly with multiple other nodul es in bilateral lower lobes the largest one measures almost 9 mm in left lower lobe posteromedial. 2 nodules are seen in right lower lobe and 2 nodules in the left lung base. There are rib fractures on the right side appear to be old. There are atherosclerotic calcifications involving the aorta and avila ac arteries chronic in nature and there appears to be some degree of stenosis of the iliac arteries n ot adequately characterized. There is free intraperitoneal air. A G-tube is in place and the G-tube w as placed 3 weeks ago. A few of these gas bubbles may be from the patient's ET tube, however the exte nt of it cannot be explained simply to be related to the patient's G-tube. The air bubbles dissects i nto the mesenteric fat and fascia on the right side of the abdomen surrounding the ascending colon an d the region of the hepatic flexure. Some of the gas bubbles appear to be possibly within the wall of the colon and possibility of pneumatosis intestinalis should also be entertained. Gas bubbles surrou nding the ascending colon, hepatic flexure transverse colon and parts of the descending colon. Pelvic CT: There is no evidence for mass, abscess formation, or any significant adenopathy within the pelvis. Th ere is moderate amount of stool in the colon. There is prominent fat within bilateral inguinal canal s. CONCLUSION: 1. Multiple lung base nodules bilaterally nonspecific, however metastatic disease not excluded. 2. There is moderate intraperitoneal free air with air dissecting into the mesenteric fat around the colon particularly on the right side of the colon extending to the hepatic flexure. The gas bubbles however follow along the transverse colon to the level of the splenic flexure and descending colon as well. Possibility of pneumatosis intestinalis with air leaking outside of the wall of the colon shou ld be entertained. Findings were discussed with Dr. Izaguirre at the time of this dictation. Electronically signed by: Miguelina Zurita MD 10/12/2017 10:13 AM EDT
[2017-10-12] MEDS ORDERED: Vancomycin Inj 1,000 MG in Sodium Chlor 0.9% Inj 250 ML IV.SIG SCH (10:17)
[2017-10-12] MEDS ORDERED: Vancomycin Inj 1,000 MG in Sodium Chlor 0.9% Inj 250 ML IV.SIG ONE (11:00)
[2017-10-12] MEDS ORDERED: Vancomycin Consult Pharmacy 1 EACH OTHER SCH (11:00)
[2017-10-12] MEDS ORDERED: Sod Chloride 0.9% Inj 2,000 ML IV.SIG ONE (11:00)
[2017-10-12] MEDS ORDERED: Sodium Chlor 0.9% Inj 500 ML IV.SIG ONE (12:00)
[2017-10-12] MEDS ORDERED: Metoprolol Inj 5 MG/5 ML Vial IV.PUSH ONE (12:00)
[2017-10-12] MEDS ORDERED: Phenylephrine/NS 1000 MCG/10ML Syringe IV.PUSH ONE (12:00)
[2017-10-12] MEDS ORDERED: Lidocaine PF 1% Inj 5 ML Syringe INFILTRATN ONE (12:00)
--- NOTE | 2017-10-12 12:24 | P.CONGS ---
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 Last dose chemotherapy on Saturday. He presented with hematemesis this morning as well as hypotension and required 2 units blood transfusion. The patient complained of persistent and worsening abdominal pain and CT of the abdomen and pelvis was ordered and shows pneumoperitoneum primarily in the mesentery around the right colon but also in the upper left and right abdomen. There is also concern for pneumatosis primarily of the right colon. The patient has severe peripheral vascular disease. He underwent PEG tube placement 3 weeks ago. He was feeling well until overnight when the hematemesis began. The patient just had a large bloody stool. He took plavix yesterday. Review of Systems All other systems reviewed negative except as stated in [facility] - History History Provided By: Family Member - Medical History Medical History: Medical History (Last Reviewed 10/12/17 @ 09:59 by Wilmer Aguilar) CAD (coronary artery disease) (Acute) Diabetes (Acute) Throat cancer (Acute) PAD (peripheral artery disease) Presence of arterial stent - Tobacco History Second Hand Smoke Exposure: No Smoking Status: Former smoker - Alcohol History How Often Do You Have a Drink Containing Alcohol: Never - Substance Use History Substance History: No History of Abuse - Travel History Recent Travel in the [place] Within the Last 8 Weeks: No Recent Travel Out of the Country Within the Last 8 Weeks: No - Immunization History Tetanus Immunization: >5 Years Hx Influenza Vaccine This Season: No Medications and Allergies Active Medications: Active Medications Albuterol (Duoneb Neb (Prn)) 1 ampul NEB Q2HR NEB PRN PRN Reason: WHEEZING Chlorhexidine Gluconate (Chlorhexidine 2% Cloth) 3 pack TOPICAL DAILY@0400 JUAN Stop: 10/18/17 03:59 Chlorhexidine Gluconate (Chlorhexidine 2% Cloth) 3 pack TOPICAL DAILY@0400 PRN PRN Reason: Extra cloth needed Stop: 10/18/17 03:59 Dextrose (D50w Vial) 50 ml IV.PUSH UNSCH PRN PRN Reason: PER HYPOGLYCEMIA PROTOCOL Glucagon (Glucagon Inj) 1 mg OTHER UNSCH PRN PRN Reason: for Hypoglycemia Protocol Pantoprazole Sodium 80 mg/ (Sodium Chloride) 100 mls @ 10 mls/hr IV.CONT CONT JUAN Last Admin: 10/12/17 06:44 Dose: 10 mls/hr Octreotide Acetate 500 mcg/ (Sodium Chloride) 500.5 mls @ 25.02 mls/hr IV.CONT .Q20H1M [facility] Sodium Chloride (Ns Inj) 1,000 mls @ 84 mls/hr IV.CONT .[id number] [facility] Magnesium Sulfate Inj 4 gm/ (Sodium Chloride) 100 mls @ 50 mls/hr IV.SIG UNSCH PRN PRN Reason: For Magnesium 0.9 - 1.1 mg/dL Potassium Chloride (Kcl 40 Meq Premix Inj) 40 meq in 100 mls @ 50 mls/hr IV.SIG Q2H PRN PRN Reason: For Potassium 2.8 - 3.2 mEq/L Potassium Chloride (Kcl 20 Meq Premix Inj) 20 meq in 100 mls @ 50 mls/hr IV.SIG Q2H PRN PRN Reason: For Potassium 3.3 - 3.5 mEq/L Potassium Chloride (Kcl 40 Meq Premix Inj) 40 meq in 100 mls @ 25 mls/hr IV.SIG UNSCH PRN PRN Reason: For Potassium 3.3 - 3.5 mEq/L Potassium Chloride (Kcl 20 Meq Premix Inj) 20 meq in 100 mls @ 50 mls/hr IV.SIG Q2H PRN PRN Reason: For Potassium 2.8 - 3.2 mEq/L Potassium Phosphate 30 mmol/ (Sodium Chloride) 260 mls @ 42 mls/hr IV.SIG UNSCH PRN PRN Reason: SEE LABEL COMMENTS Sodium Phosphate 30 mmol/ (Sodium Chloride) 260 mls @ 42 mls/hr IV.SIG UNSCH PRN PRN Reason: For Phosphorus < 2.5 mg/dL Magnesium Sulfate Inj 2 gm/ (Sodium Chloride) 100 mls @ 50 mls/hr IV.SIG UNSCH PRN PRN Reason: For Magnesium 1.2 - 1.6 mg/dL Piperacillin/Tazobactam/Dextrose (Zosyn 4.5 Gm Premix) 4.5 gm in 100 mls @ 200 mls/hr IV.SIG Q6H [facility] Pharmacy Profile Note (Vancomycin Consult Pharmacy) mls @ 0 mls/hr OTHER UNSCH [facility] Vancomycin HCl 1,500 mg/ (Sodium Chloride) 515 mls @ 250 mls/hr IV.SIG Q12H [facility] Insulin Human Regular (Novolin R Correctional Sugar Inj) 0 units SQ Q6HR JUAN; Protocol Magnesium Oxide (Mag-Ox) 800 mg PO UNSCH PRN PRN Reason: For Magnesium 1.2 - 1.6 mg/dL Miscellaneous Information ([facility] Ordered Lab Info) 0 each OTHER ONCE ONE Stop: 10/13/17 23:46 Potassium Bicarb/Potassium Chloride (K-Lyte Cl Eff) 50 meq PO UNSCH PRN PRN Reason: For Potassium 3.3 - 3.5 mEq/L Potassium Phosphate (K-Phos Original) 2,000 mg PO Q4H PRN PRN Reason: Phosphorus Less Than 2.5 mg/dL Potassium Phosphate (K-Phos Original) 2,000 mg PO UNSCH PRN PRN Reason: SEE LABEL COMMENTS Sodium Chloride (Ns Flush) 2 ml IV.FLUSH BID JUAN Sodium Chloride (Ns Flush) 2 ml IV.FLUSH UNSCH PRN PRN Reason: FLUSH AFTER USING IV ACCESS Allergies Allergy/AdvReac Type Severity Reaction Status Date / Time acetaminophen Allergy Severe Wheezing Verified 10/12/17 06:11 [From Tylenol-Codeine #3] codeine Allergy Severe Wheezing Verified 10/12/17 06:11 [From Tylenol-Codeine #3] gabapentin Allergy Severe Hives Verified 10/12/17 06:11 Home Medications Medication Instructions Recorded Confirmed Type albuterol sulfate [ProAir HFA] 2 puff INHALATION Q4-6H PRN 10/12/17 10/12/17 History amlodipine 10 mg PO DAILY 10/12/17 10/12/17 History aspirin [Aspir-81] 81 mg PO DAILY 10/12/17 10/12/17 History budesonide-formoterol [Symbicort] 2 puff INHALATION BID 10/12/17 10/12/17 History carvedilol 3.125 mg PO BID 10/12/17 10/12/17 History cholecalciferol (vitamin D3) 4,000 unit PO DAILY 10/12/17 10/12/17 History [Vitamin D3] clopidogrel 75 mg PO DAILY 10/12/17 10/12/17 History docusate sodium [Doc-Q-Lace] 100 mg PO DAILY 10/12/17 10/12/17 History losartan 25 mg PO DAILY 10/12/17 10/12/17 History metformin 500 mg PO DAILY 10/12/17 10/12/17 History omega 3-rnm-erv-fish oil [Fish Oil] 10/12/17 History oxycodone mg PO PRN 10/12/17 History quetiapine 100 mg PO HS 10/12/17 10/12/17 History rosuvastatin 20 mg PO DAILY 10/12/17 10/12/17 History sertraline [Zoloft] 50 mg PO DAILY 10/12/17 10/12/17 History tamsulosin 0.4 mg PO DAILY 10/12/17 10/12/17 History thiamine HCl (vitamin B1) [Vitamin 100 mg PO DAILY 10/12/17 10/12/17 History B-1] Exam Vital signs: Vital Signs 10/12/17 06:12 10/12/17 06:34 10/12/17 06:40 Temperature 98.7 F Pulse Rate 91 H 93 H Respiratory Rate 15 15 Blood Pressure 86/52 L 125/65 Pulse Oximetry 100 100 99 10/12/17 07:17 10/12/17 07:48 Temperature Pulse Rate 86 87 Respiratory Rate 20 24 Blood Pressure 125/69 121/73 Pulse Oximetry 99 Intake & Output 10/11/17 10/12/17 10/12/17 18:59 06:59 18:59 Intake Total 100 / 100 Balance 100 / 100 Weight 77.111 kg 74.5 kg Intake: IV 100 / 100 Rocephin Inj 1,000 MG In NS Inj 100 / 100 100 ML @ 200 mls/hr IV.SIG ONCE ONE Rx#:[id number] Other: Date of Last Bowel Movement 10/12/17 Weight On Admission 74.5 kg Narrative: GENERAL: Awake and alert. Uncomfortable. And pain. Mild distress. HEAD: Normocephalic. Atraumatic. EYES: Pupils equal round and reactive to light bilaterally. No scleral icterus. ENT: dry oral mucosa. NECK: Trachea midline. CHEST: Nonlabored breathing. No respiratory distress. CARDIOVASCULAR: Regular rate and rhythm. ABDOMEN: PEG tube in place. Mild distention. Diffuse rebound tenderness worse in the right and left midabdomen. EXTREMITIES: No cyanosis or edema. SKIN: cool, pale, dry, nonjaundiced. Results - Labs 10/12/17 06:45 10/12/17 06:45 Abnormal lab results 10/12/17 10/12/17 10/12/17 Range/Units 06:30 06:45 06:45 WBC 13.3 H (4.0-11.0) th/mm3 RBC 3.88 L (4.50-5.90) mil/mm3 Hgb 9.1 L (13.0-17.0) gm/dL Hct 29.0 L (39.0-51.0) % MCV 74.7 L (80.0-100.0) fL MCH 23.4 L (27.0-34.0) pg MCHC 31.3 L (32.0-36.0) % RDW 17.3 H (11.6-17.2) % Neut % (Auto) 78.4 H (16.0-70.0) % Mora % (Auto) 9.2 H (0.0-8.0) % Neut # (Auto) 10.4 H (1.8-7.7) th/mm3 Mora # (Auto) 1.2 H (0.0-0.9) th/mm3 PT 12.4 H (9.8-11.6) sec APTT 23.4 L (24.3-30.1) sec ABG pH 7.56 H* (7.380-7.420) ABG pCO2 24 L* (38-42) mmHg ABG pO2 136 H (61-120) mmHg ABG HCO3 21 L (22-26) mmol/L Hemoglobin 8.8 L (12.0-16.0) G/DL Random Glucose (74-106) mg/dL Calcium (8.5-10.1) mg/dL AST (15-37) U/L Total Protein (6.4-8.2) g/dL Albumin (3.4-5.0) g/dL MTS Gel Crossmatch 10/12/17 10/12/17 Range/Units 06:45 06:45 WBC (4.0-11.0) th/mm3 RBC (4.50-5.90) mil/mm3 Hgb (13.0-17.0) gm/dL Hct (39.0-51.0) % MCV (80.0-100.0) fL MCH (27.0-34.0) pg MCHC (32.0-36.0) % RDW (11.6-17.2) % Neut % (Auto) (16.0-70.0) % Mora % (Auto) (0.0-8.0) % Neut # (Auto) (1.8-7.7) th/mm3 Mora # (Auto) (0.0-0.9) th/mm3 PT (9.8-11.6) sec APTT (24.3-30.1) sec ABG pH (7.380-7.420) ABG pCO2 (38-42) mmHg ABG pO2 (61-120) mmHg ABG HCO3 (22-26) mmol/L Hemoglobin (12.0-16.0) G/DL Random Glucose 149 H (74-106) mg/dL Calcium 8.1 L (8.5-10.1) mg/dL AST 9 L (15-37) U/L Total Protein 5.9 L (6.4-8.2) g/dL Albumin 2.4 L (3.4-5.0) g/dL MTS Gel Crossmatch See Detail Diabetes panel 10/12/17 Range/Units 06:45 Sodium 139 (136-145) meq/L Potassium 4.6 (3.5-5.1) meq/L Chloride 107 (98-107) meq/L Carbon Dioxide 24.8 (21.0-32.0) meq/L BUN 17 (7-18) mg/dL Creatinine 0.88 (0.60-1.30) mg/dL Calcium 8.1 L (8.5-10.1) mg/dL AST 9 L (15-37) U/L ALT 22 (12-78) U/L Alkaline Phosphatase 48 (45-117) U/L Total Protein 5.9 L (6.4-8.2) g/dL Albumin 2.4 L (3.4-5.0) g/dL Calcium panel 10/12/17 Range/Units 06:45 Calcium 8.1 L (8.5-10.1) mg/dL Albumin 2.4 L (3.4-5.0) g/dL Pituitary panel 10/12/17 Range/Units 06:45 Sodium 139 (136-145) meq/L Potassium 4.6 (3.5-5.1) meq/L Chloride 107 (98-107) meq/L Carbon Dioxide 24.8 (21.0-32.0) meq/L BUN 17 (7-18) mg/dL Creatinine 0.88 (0.60-1.30) mg/dL Calcium 8.1 L (8.5-10.1) mg/dL Adrenal panel 10/12/17 Range/Units 06:45 Sodium 139 (136-145) meq/L Potassium 4.6 (3.5-5.1) meq/L Chloride 107 (98-107) meq/L Carbon Dioxide 24.8 (21.0-32.0) meq/L BUN 17 (7-18) mg/dL Creatinine 0.88 (0.60-1.30) mg/dL Calcium 8.1 L (8.5-10.1) mg/dL Total Bilirubin 0.3 (0.2-1.0) mg/dL AST 9 L (15-37) U/L ALT 22 (12-78) U/L Alkaline Phosphatase 48 (45-117) U/L Total Protein 5.9 L (6.4-8.2) g/dL Albumin 2.4 L (3.4-5.0) g/dL All other labs normal. - Imaging CT scan - abdomen: report reviewed, image reviewed CT scan - pelvis: report reviewed, image reviewed Assessment and Plan - Assessment (1) Pneumoperitoneum Code(s): K66.8 - Other specified disorders of peritoneum Status: Acute (2) Upper GI bleed Code(s): K92.2 - Gastrointestinal hemorrhage, unspecified Status: Acute (3) Head and neck cancer Code(s): C76.0 - Malignant neoplasm of head, face and neck Status: Chronic - Plan The patient is a 57-year-old male with multiple medical problems including severe peripheral arterial disease and current head and neck cancer status post radiation chemotherapy who presented with hematemesis and now has pneumoperitoneum likely consistent with ischemic colitis. I think he likely has an upper GI source of bleeding was precipitated hypotension causing ischemic colitis. I recommend to proceed to the operating room for evaluation of the colon and likely bowel resection. I discussed surgery in detail with the patient as well as his significant other. Will start with diagnostic laparoscopy continue with laparotomy and bowel resection as needed and possible ostomy. Patient understands and desires to proceed.
[2017-10-12] MEDS: Vancomycin Inj 1,500 MG in Sodium Chlor 0.9% Inj 500 ML IV.SIG SCH (13:00)
[2017-10-12 13:19] LABS: ABG Base Excess -6.6 mmol/L (-2-2); ABG PCO2 37 mmHg (38-42); ABG PO2 183 mmHG (61-120)
[2017-10-12] MEDS: Bupivacaine/Epinephrine PF Inj 0.5% 30 ML Vial ONE ×2 (13:20→19:24)
--- NOTE | 2017-10-12 14:25 | P.OP ---
Date of procedure: 11/05/17 Procedure: Diagnostic laparoscopy Anesthesia: NABOR Surgeon: Freedom Houser MD Loading And Unloading Supervisor: Petey Kamara MS3 Estimated blood loss (mL): 10 Pathology: none sent Operation and Findings: Blood products: 2 U PRBC, platelets Operative findings: Pneumatosis coli, all large and small bowel evaluated and appears viable Procedure in detail: The patient was taken to the operating room placed in supine position. General endotracheal anesthesia was induced. The abdomen was prepped and draped in usual sterile fashion and a surgical timeout was performed to verify correct patient procedure and site. Local anesthetic was injected in the skin and subcutaneous tissue in the left upper abdomen and a 5 mm incision made. The Optiview trocar was inserted with the laparoscope in place. The abdomen is insufflated to 15 mmHg with CO2 gas which the patient tolerated well. There is moderate distention of the small bowel. A 5 mm trochars placed in the left midabdomen and one in the upper midline. Attention was turned to the right colon. The colon was visualized to have significant amount of bubbles and air in the pericolonic fat. However, the colon itself appeared viable with no evidence of ischemia. I then proceeded to evaluate the entire colon and again there was no evidence of ischemia. The small bowel was carefully run with no evidence of perforation or ischemia. There were some other bubbles of air in the pericolonic tissues near the transverse colon as well. Due to the patient's overall status and apparent viability of the colon I did not elect to perform a resection with ileostomy. At this point I did terminate the operation and remove trochars. Skin was closed with subcuticular 4-0 Monocryl.
[2017-10-12 14:35] LABS: ABG PCO2 46 mmHg (38-42); ABG PO2 173 mmHG (61-120)
[2017-10-12] MEDS ORDERED: Propofol Inj 500 MG/50 ML Vial ONE (15:05)
[2017-10-12] MEDS ORDERED: fentaNYL Citrate Inj 100 MCG/2 ML Ampul ONE ×2 (15:13→15:22)
[2017-10-12] MEDS ORDERED: Phenylephrine Inj 40 MG in Dextrose 5% in Water Inj 496 ML IV.CONT PRN ×2 (15:37)
[2017-10-12 15:53] LABS: ABG Base Excess -2.5 mmol/L (-2-2); ABG PCO2 29 mmHg (38-42); ABG PO2 225 mmHg (61-120)
[2017-10-12] MEDS ORDERED: niCARdipine Inj 25 MG in Sodium Chlor 0.9% Inj 240 ML IV.CONT PRN (15:53)
[2017-10-12] MEDS: Propofol 1000 mg/100 ml Inj 1,000 MG/100 ML BOTTLE IV.CONT PRN (16:00)
--- NOTE | 2017-10-12 16:13 | XR ---
EXAM DATE: 10/12/2017 4:02 PM EDT AGE/SEX: 57 years / Male INDICATIONS: Post intubation. CLINICAL DATA: This is the patient's subsequent encounter. Patient reports that signs and symptoms h ave been present for 1 day and indicates a pain score of Nonresponsive. MEDICAL/SURGICAL HISTORY: . Diabetes. Throat cancer. None. COMPARISON: [facility] [place], CHEST 1V SINGLE AP, 10/12/2017. . FINDINGS: ET tube is in good position. Minimal parenchymal changes left base. Right lung clear. Right central l ine in good position. CONCLUSION: ETT in good position. Electronically signed by: Rodriguez Flores MD 10/12/2017 4:12 PM EDT
[2017-10-12] MEDS ORDERED: fentaNYL Citrate Inj 100 MCG/2 ML Ampul IV.PUSH ONE (16:57)
[2017-10-12] MEDS: Insulin NovoLIN Regular Correctional Sugar Inj SQ SCH ×3 (17:16→23:34)
[2017-10-12] MEDS: fentaNYL 10 mcg/mL Premix Drip 2,500 MCG/250 ML BAG IV.SIG PRN (17:36)
[2017-10-12 18:16] LABS: Hemoglobin 11.4 gm/dL (13.0-17.0); Mean Corpuscular HGB Conc 33.6 % (32.0-36.0); Mean Corpuscular Hemoglobin 27.3 pg (27.0-34.0); Mean Corpuscular Volume 81.4 fL (80.0-100.0); Mean Platelet Volume 8.3 fL (7.0-11.0); Platelet Count 188 th/mm3 (150-450); Red Blood Count 4.17 mil/mm3 (4.50-5.90); Red Cell Distribution Width 17.8 % (11.6-17.2); White Blood Count 14.1 th/mm3 (4.0-11.0)
[2017-10-12] MEDS: Piperacil/Tazo 4.5 GM Premix 4.5 GM/100 ML BAG IV.SIG SCH ×2 (19:24→19:38)
[2017-10-12] MEDS: Octreotide Inj 500 MCG in Sodium Chlor 0.9% Inj 500 ML IV.CONT SCH (19:25)
[2017-10-12] MEDS: Sod Chloride 0.9% Inj 1,000 ML IV.CONT SCH ×2 (19:25→20:13)
[2017-10-12] MEDS: Oral Hygiene Kit OROPHARYNG SCH ×2 (19:26→23:34)
[2017-10-12] MEDS: Chlorhexidine 0.12% Oral Kit 15 ML UDC OROPHARYNG SCH (20:13)
[2017-10-12] MEDS: Famotidine PF Inj 20 MG/2 ML Vial IV.PUSH SCH (20:13)
[2017-10-12 20:46] LABS: Hematocrit 30.3 % (39.0-51.0); Hemoglobin 10.4 gm/dL (13.0-17.0)
[2017-10-13] MEDS: Piperacil/Tazo 4.5 GM Premix 4.5 GM/100 ML BAG IV.SIG SCH ×5 (00:04→23:34)
[2017-10-13] MEDS: Vancomycin Inj 1,500 MG in Sodium Chlor 0.9% Inj 500 ML IV.SIG SCH ×2 (01:00→13:54)
[2017-10-13] MEDS: Propofol 1000 mg/100 ml Inj 1,000 MG/100 ML BOTTLE IV.CONT PRN (01:00)
[2017-10-13] MEDS: Pantoprazole Inj 80 MG in Sodium Chlor 0.9% Inj 100 ML IV.CONT SCH (02:48)
[2017-10-13 03:09] LABS: Baso % (Auto) 0.5 % (0.0-2.0); Hematocrit 27.2 % (39.0-51.0); Hemoglobin 9.2 gm/dL (13.0-17.0); Lymph # (Auto) 0.9 th/mm3 (1.0-4.8); Lymph % (Auto) 12.9 % (9.0-44.0); Mean Corpuscular HGB Conc 33.6 % (32.0-36.0); Mean Corpuscular Hemoglobin 27.2 pg (27.0-34.0); Mean Platelet Volume 8.2 fL (7.0-11.0); Mono # (Auto) 0.6 th/mm3 (0.0-0.9); Mono % (Auto) 8.4 % (0.0-8.0); Neut # (Auto) 5.3 th/mm3 (1.8-7.7); Neut % (Auto) 78.2 % (16.0-70.0); Platelet Count 161 th/mm3 (150-450); Red Blood Count 3.36 mil/mm3 (4.50-5.90); Red Cell Distribution Width 17.4 % (11.6-17.2); White Blood Count 6.7 th/mm3 (4.0-11.0)
[2017-10-13 03:23] LABS: INR 1.2 Ratio; Prothrombin Time 12.3 sec (9.8-11.6)
[2017-10-13 03:53] LABS: Alanine Aminotransferase 16 U/L (12-78); Alkaline Phosphatase 38 U/L (45-117); Anion Gap 9 meq/L (5-15); Aspartate Aminotransferase 6 U/L (15-37); Blood Urea Nitrogen 16 mg/dL (7-18); Calcium 7.2 mg/dL (8.5-10.1); Chloride 113 meq/L (98-107); Glomerular Filtration Rate Greater Than 89 mL/min (>89); Glucose,Random 174 mg/dL (74-106); Magnesium 1.6 mg/dL (1.5-2.5); Sodium 144 meq/L (136-145); Total Protein 4.6 g/dL (6.4-8.2)
[2017-10-13] MEDS ORDERED: Chlorhexidine Gluconate 2% 1 Pack (2 Cloths) TOPICAL PRN (04:00)
[2017-10-13] MEDS: Oral Hygiene Kit OROPHARYNG SCH ×4 (04:03→23:34)
[2017-10-13] MEDS: Chlorhexidine Gluconate 2% 1 Pack (2 Cloths) TOPICAL SCH (05:02)
[2017-10-13] MEDS: Octreotide Inj 500 MCG in Sodium Chlor 0.9% Inj 500 ML IV.CONT SCH (05:03)
[2017-10-13] MEDS: Insulin NovoLIN Regular Correctional Sugar Inj SQ SCH ×4 (05:46→23:46)
[2017-10-13 07:48] LABS: Hematocrit 23.7 % (39.0-51.0); Hemoglobin 8.2 gm/dL (13.0-17.0)
--- NOTE | 2017-10-13 09:26 | P.PNGS ---
Subjective Interval history: Patient ventilated and sedated. Hgb now 8.2 from 11 yesterday. Has had clots from PEG and bloody BMs. BP labile but generally mildly hypertensive. Physical Exam Vital signs: Vital Signs 10/12/17 15:00 10/12/17 16:15 10/12/17 19:00 Temperature 98.2 F Pulse Rate 82 Respiratory Rate 16 12 Blood Pressure 169/84 H Pulse Oximetry 100 100 10/12/17 19:38 10/12/17 20:00 10/12/17 23:46 Temperature 97.5 F L Pulse Rate 62 Respiratory Rate 12 12 12 Blood Pressure 126/58 L Pulse Oximetry 100 100 100 10/13/17 00:00 10/13/17 02:00 10/13/17 04:00 Temperature 97.6 F 97.7 F Pulse Rate 52 L 55 L 54 L Respiratory Rate 12 13 Blood Pressure 122/48 L 105/64 Pulse Oximetry 100 100 10/13/17 04:04 10/13/17 06:00 10/13/17 07:34 Temperature Pulse Rate 52 L Respiratory Rate 12 13 Blood Pressure Pulse Oximetry 99 100 Intake & Output 10/12/17 10/13/17 10/13/17 18:59 06:59 18:59 Intake Total 3792 / 3792 875 / 875 Output Total 725 / 725 550 / 550 Balance 3067 / 3067 325 / 325 Weight 74.5 kg 86.3 kg Intake: IV 800 / 800 815 / 815 Protonix Inj 80 MG In NS Inj 100 / 100 100 ML @ 10 mls/hr IV.CONT CONT JUAN Rx#:[id number] Diprivan 1000 mg/100 ml Inj 1, 100 / 100 000 mg In 100 ml @ 10 MCG/KG/ MIN 4.47 mls/hr IV.CONT TITRATE PRN Rx#:[id number] Zosyn 4.5 GM Premix 4.5 gm In 200 / 200 100 ml @ 200 mls/hr IV.SIG Q6H JUAN Rx#:[id number] Vancomycin Inj 1,500 MG In NS 500 / 500 515 / 515 Inj 500 ML @ 250 mls/hr IV.SIG Q12H JUAN Rx#:[id number] Rocephin Inj 1,000 MG In NS Inj 100 / 100 100 ML @ 200 mls/hr IV.SIG ONCE ONE Rx#:[id number] Tube Irrigant 60 / 60 Anesthesia Amount 1999 Intake (Blood Product) Amt 992 / 992 Plt Pheresis C Leukoreduced 192 / 192 Unit [id number] Rbc As-3 Leukoreduced Unit 400 / 400 [id number] Rbc As-3 Leukoreduced Unit 400 / 400 [id number] Output: Urine Amount (Catheter) 725 / 725 550 / 550 Indwelling Urethral Catheter 725 / 725 550 / 550 Gastric Drainage 0 / 0 Gastrostomy Tube (PEG) 0 / 0 Other: Date of Last Bowel Movement 10/12/17 10/12/17 Weight On Admission 74.5 kg Narrative: Ventilated, sedated Abd: mild distention, tender - Urinary Catheter Management Indwelling Urethral Catheter Cath placed during this visit: yes Reason for continuing: Hourly intake/output Insertion date: 10/12/17 Insertion time: 10:00 Assessment and Plan - Assessment (1) Pneumoperitoneum Code(s): K66.8 - Other specified disorders of peritoneum Status: Acute (2) Upper GI bleed Code(s): K92.2 - Gastrointestinal hemorrhage, unspecified Status: Acute (3) Head and neck cancer Code(s): C76.0 - Malignant neoplasm of head, face and neck Status: Chronic - Plan POD 1 dx lap for ischemic colitis- pneumatosis coli visualized but colon appeared viable. No resection performed. Continues to have apparent UGI bleed. Important to maintain perfusion to bowel. Will transfuse 1 U PRBC. May be beneficial to proceed with EGD and I will speak with GI. Stop octreotide due to decrease bowel perfusion. D/w Dr. Little.
--- NOTE | 2017-10-13 10:03 | P.PNCC ---
Subjective Subjective Remarks/Hospital Course: Patient is a 57-year-old male with past medical history significant for head and neck cancer status post completion of radiation last week, PEG tube placement earlier this month, history of coronary artery disease on aspirin and Plavix, history of COPD and history of alcohol abuse who presented to the emergency department with complaints of upper GI bleed, vomiting clots approximately 400 mL. On my interview he clarifies that he was vomiting blood and also there was bright red blood from the PEG tube. There was no hemoptysis. Patient was noted to be hypotensive and pale and EMS gave 400 cc normal saline bolus. Patient was diagnosed with head and neck cancer 6 months, getting treatment at [facility]; just completed 38 radiation treatments last week and 7 rounds of Erbitux chemotherapy, (Dr. Rafita Mcclure, oncologist). Patient has no history of GI bleed. He has history of heavy alcohol use and tobacco use but quit both in March 2016 when he had a heart attack. I evaluated the patient in the ED. There is stigmata of upper GI bleed. Patient also complains about abdominal pain and is tender to palpation. Patient's blood pressure is improved after receiving total of 800 mL of normal saline, and receiving 1 unit of PRBC unmatched now. Patient is started on Protonix infusion, I would also add octreotide infusion and start Rocephin for SBP prophylaxis given history of heavy alcohol use. GI consult is pending. CT abdomen pelvis ordered by ED doctor. CT abdomen pelvis: There is moderate intraperitoneal free air with air dissecting into the mesenteric fat around the colon particularly on the right side of the colon extending to the hepatic flexure. The gas bubbles however follow along the transverse colon to the level of the splenic flexure and descending colon as well. Possibility of pneumatosis intestinalis with air leaking outside of the wall of the colon should be entertained. Start broad-spectrum antibiotics with Zosyn and vancomycin, stat consulted general surgery. Check lactic acid. Discussed the case extensively with Dr. Houser and also with Dr. Wood. EGD canceled. Patient will be emergently taken to the OR by Dr. Houser for intra- abdominal free air and right colon pneumatosis. Continue aggressive fluid resuscitation. Broad-spectrum antibiotics started as below. 10/13: Patient was taken to the operating room where using laparoscopic technique Dr. Villagomez inspected the colon from the outside and found no areas of necrosis. Patient was brought back to the surgical intensive care unit on mechanical ventilation where he continued to produce some blood in the nasogastric. For this reason he has been kept on the ventilator and we will discuss with the GI service the possibility of endoscopy from above today. Objective Vital Signs / I&O: Vital Signs - 24 hr 10/13/17 12:00 10/13/17 14:00 10/13/17 15:32 Temperature 98.1 F Pulse Rate 54 L 54 L Respiratory Rate 12 12 Blood Pressure 144/60 H Pulse Oximetry 100 100 10/13/17 16:00 10/13/17 18:00 10/13/17 19:51 Temperature 97.8 F Pulse Rate 58 L 55 L Respiratory Rate 12 12 Blood Pressure 112/67 Pulse Oximetry 98 99 10/13/17 20:00 10/13/17 22:00 10/13/17 22:45 Temperature 98.1 F Pulse Rate 54 L 55 L Respiratory Rate 12 12 Blood Pressure 134/58 L Pulse Oximetry 98 98 10/14/17 00:00 10/14/17 02:00 10/14/17 04:00 Temperature 98.8 F 98.5 F Pulse Rate 59 L 55 L 54 L Respiratory Rate 12 12 Blood Pressure 135/85 128/66 Pulse Oximetry 99 98 10/14/17 04:15 10/14/17 06:00 10/14/17 08:00 Temperature 98.1 F Pulse Rate 58 L 54 L Respiratory Rate 13 12 Blood Pressure 125/58 L Pulse Oximetry 99 97 10/14/17 08:55 10/14/17 09:22 10/14/17 10:00 Temperature Pulse Rate 58 L Respiratory Rate 10 L 12 Blood Pressure Pulse Oximetry 96 96 Result Diagrams: 10/14/17 06:27 10/13/17 03:00 Imaging: Chest X-Ray 10/12/17 00:00 CONCLUSION: ETT in good position. Chest X-Ray 10/12/17 06:12 CONCLUSION: No acute cardiopulmonary disease. Abdomen/Pelvis CT 10/12/17 06:46 CONCLUSION: 1. Multiple lung base nodules bilaterally nonspecific, however metastatic disease not excluded. 2. There is moderate intraperitoneal free air with air dissecting into the mesenteric fat around the colon particularly on the right side of the colon extending to the hepatic flexure. The gas bubbles however follow along the transverse colon to the level of the splenic flexure and descending colon as well. Possibility of pneumatosis intestinalis with air leaking outside of the wall of the colon should be entertained. Findings were discussed with Dr. Izaguirre at the time of this dictation. Objective Remarks: GENERAL: Ill-appearing 57-year-old man currently orotracheally intubated. SKIN: Pale/warm/dry. HEAD: Normocephalic. Atraumatic. Chronic irritation left lateral neck. EYES: No scleral icterus. No injection or drainage. Pallor present. Right eye severe cataract, blind ENT: Edentulous. Oral tracheal intubation. NECK: Supple, trachea midline. Radiation scars on the left side of the neck CARDIOVASCULAR: RRR. S1, S2 predose 4. Without murmurs, gallops, or rubs. No JVD RESPIRATORY: Breath sounds equal bilaterally. No accessory muscle use. Diffuse rhonchi and some mobile secretions. GASTROINTESTINAL: Abdomen soft, tender nondistended. PEG tube in place in right lower quadrant, open to closed bag drainage. MUSCULOSKELETAL: No cyanosis or peripheral edema. NEURO: Moves both arms with strength. Tracks with eyes and attempts to speak around endotracheal tube. Assessment and Plan - Assessment and Plan Plan: NEURO/Psych: Depression/anxiety EtOH use -Currently on fentanyl drip at 100 mcg an hour for angiosedation while intubated As needed lorazepam for anxiety/severe Resume thiamine 100 mg daily for EtOH use -Monitor neuro status closely Resume quetiapine 100 mg at night and sertraline 50 mg daily RESP: Acute respiratory failure COPD -PRVC ventilator mode =-CPAP trial 10/5 at 40%. Attempt to extubate today after spontaneous breathing trial completed Resume Symbicort 80/4.52 puffs twice daily/home medication Albuterol/ipratropium aerosols every 4 hours with albuterol aerosols every 2 hours as needed for dyspnea Tobacco cessation education provided CV: Essential hypertension Hyperlipidemia Coronary artery disease -Normal saline currently 84 cc an hour -Transfused 1 unit of packed red blood cells Resume rosuvastatin 20 mg a mouth daily/home medication Currently holding clopidogrel 75 mg daily aspirin 81 mg daily. Resume when okayed with GI Home medications include carvedilol 3.125 mg twice daily, amlodipine 10 mg daily and losartan 25 mg daily for hypertension along with an GI: Upper GI bleed secondary to duodenal ulcer status post epinephrine and cautery Status post exploratory laparotomy secondary to his pneumatosis coli with viable bowel. Dr. Houser PEG tube placement about 3 weeks ago -Currently on 8 mg/h infusion -Octreotide 50 mcg IV push 1 and infusion at 50 mcg/h will be discontinued 10/14 -Rocephin for GI prophylaxis -CT abdomen pelvis for abdominal pain -GI -EGD 10/13 - Normal esophagus. Blood clots in fundus mainly. Medium sized ulcer was found in the duodenal bulb, submucosal injection of epi around bleeding site and cautery applied to site with partial hemostasis, retroflexed views revealed large blood clots : BPH Resume tamsulosin 0.4 mg by mouth daily -Monitor renal function closely. No indication for Choudhary's catheter ID: -Rocephin for SBP prophylaxis until variceal bleeding is ruled out HEME: Acute blood loss normocytic anemia requiring transfusion Head and neck cancer status post chemoradiation -Monitor CBC, coags -Transfuse 2 units PRBC -Oncologist is Dr. Mcclure -s/p 38 radiation treatments last week and 7 rounds of Erbitux chemotherapy -Transfuse additional unit of packed red blood cells this morning. ENDO: Type 2 diabetes -Electrolyte replacement per protocol -Sliding scale insulin Holding metformin 1 5 mg by mouth twice daily/home medication. PROPH: -Bilateral lower extremity SCDs/SPRING. IV Protonix. Avoid chemical DVT prophylaxis due to GI bleed LINES: -Utilize peripheral IVs, central line if needed Level 3 follow-up
[2017-10-13] MEDS: Famotidine PF Inj 20 MG/2 ML Vial IV.PUSH SCH ×2 (10:41→20:23)
[2017-10-13] MEDS: Chlorhexidine 0.12% Oral Kit 15 ML UDC OROPHARYNG SCH ×2 (10:41→20:24)
[2017-10-13] MEDS: Sod Chloride 0.9% Inj 1,000 ML IV.CONT SCH ×2 (10:42→20:24)
[2017-10-13] MEDS ORDERED: Phenylephrine/NS 1000 MCG/10ML Syringe IV.PUSH ONE (12:00)
[2017-10-13 14:11] LABS: Hematocrit 27.1 % (39.0-51.0); Hemoglobin 9.1 gm/dL (13.0-17.0)
--- NOTE | 2017-10-13 15:26 | P.PNGI ---
Subjective Interval history: Patient continues to be monitored in the intensive care setting Current hemoglobin was 9.2 now decreased to 8.2 Discussion for consent for EGD today Patient is status post laparotomy No obvious nausea or vomiting Physical Exam Vital signs: Vital Signs 10/12/17 16:15 10/12/17 19:00 10/12/17 19:38 Temperature Pulse Rate Respiratory Rate 12 12 Blood Pressure Pulse Oximetry 100 100 100 10/12/17 20:00 10/12/17 23:46 10/13/17 00:00 Temperature 97.5 F L 97.6 F Pulse Rate 62 52 L Respiratory Rate 12 12 12 Blood Pressure 126/58 L 122/48 L Pulse Oximetry 100 100 100 10/13/17 02:00 10/13/17 04:00 10/13/17 04:04 Temperature 97.7 F Pulse Rate 55 L 54 L Respiratory Rate 13 12 Blood Pressure 105/64 Pulse Oximetry 100 99 10/13/17 06:00 10/13/17 07:34 10/13/17 09:47 Temperature 97.8 F Pulse Rate 52 L 47 L Respiratory Rate 13 12 Blood Pressure 106/52 L Pulse Oximetry 100 100 10/13/17 10:05 10/13/17 11:15 Temperature 98.0 F Pulse Rate 52 L Respiratory Rate 13 12 Blood Pressure 140/56 L Pulse Oximetry 100 99 Intake & Output 10/12/17 10/13/17 10/13/17 18:59 06:59 18:59 Intake Total 3792 / 3792 875 / 875 100 / 100 Output Total 725 / 725 550 / 550 Balance 3067 / 3067 325 / 325 100 / 100 Weight 74.5 kg 86.3 kg Intake: IV 800 / 800 815 / 815 100 / 100 Protonix Inj 80 MG In NS Inj 100 / 100 100 ML @ 10 mls/hr IV.CONT CONT JUAN Rx#:[id number] Diprivan 1000 mg/100 ml Inj 1, 100 / 100 000 mg In 100 ml @ 10 MCG/KG/ MIN 4.47 mls/hr IV.CONT TITRATE PRN Rx#:[id number] Zosyn 4.5 GM Premix 4.5 gm In 200 / 200 100 ml @ 200 mls/hr IV.SIG Q6H JUAN Rx#:[id number] Vancomycin Inj 1,500 MG In NS 500 / 500 515 / 515 Inj 500 ML @ 250 mls/hr IV.SIG Q12H [facility] Rx#:[id number] Rocephin Inj 1,000 MG In NS Inj 100 / 100 100 ML @ 200 mls/hr IV.SIG ONCE ONE Rx#:[id number] Flagyl 500 MG Inj 100 ML @ 100 100 / 100 mls/hr IV.SIG Q6H [facility] Rx#: [id number] Tube Irrigant 60 / 60 Anesthesia Amount 1999 Intake (Blood Product) Amt 992 / 992 0 / 0 Plt Pheresis C Leukoreduced 192 / 192 Unit [id number] Rbc As-3 Leukoreduced Unit 400 / 400 [id number] Rbc As-3 Leukoreduced Unit 0 / 0 [id number] Rbc As-3 Leukoreduced Unit 400 / 400 [id number] Output: Urine Amount (Catheter) 725 / 725 550 / 550 Indwelling Urethral Catheter 725 / 725 550 / 550 Gastric Drainage 0 / 0 Gastrostomy Tube (PEG) 0 / 0 Other: Date of Last Bowel Movement 10/12/17 10/12/17 Weight On Admission 74.5 kg - Constitutional mild distress - Routine HEENT Exam Head: Present: normocephalic, atraumatic Eye: Present: EOMI ENT: Present: mucous membranes moist - Routine Neck Exam Present: supple - Routine Respiratory Exam Present: decreased breath sounds - Routine Cardiovascular Exam Present: S1, S2 - Routine Abdominal Exam Present: soft, drain (Gastrostomy tube) - Routine Skin Exam Present: intact - Routine Neurological Exam Present: alert (Weakened) - Urinary Catheter Management Indwelling Urethral Catheter Cath placed during this visit: yes Reason for continuing: Hourly intake/output Insertion date: 10/12/17 Insertion time: 10:00 Results - Labs CBC & Chem 7: 10/13/17 13:34 10/13/17 03:00 Laboratory Results - last 24 hr 10/12/17 10/12/17 10/12/17 06:45 15:44 17:15 WBC RBC Hgb Hct MCV MCH MCHC RDW Plt Count MPV Neut % (Auto) Lymph % (Auto) [place] % (Auto) Eos % (Auto) Baso % (Auto) Neut # (Auto) Lymph # (Auto) [place] # (Auto) Eos # (Auto) Baso # (Auto) WBC Differential Differential Comment PT INR Puncture Site Art line Patient Temperature 98.6 O2 Saturation 97 ABG pH 7.46 H ABG pCO2 29 L ABG pO2 225 H ABG HCO3 21 L ABG O2 Content 15.3 ABG Base Excess -2.5 L ABG Methemoglobin 1.2 Hemoglobin 10.8 L Carboxyhemoglobin 1.1 O2 Delivery Device Ventilator Vent Setting Prvc/ac Inspired O2 60 Critical Value No Sodium Potassium Chloride Carbon Dioxide Anion Gap BUN Creatinine Estimated GFR POC Glucose 208 H Random Glucose Calcium Prot Corrected Calcium Magnesium Total Bilirubin AST ALT Alkaline Phosphatase Total Protein Albumin Blood Type O Positive Antibody Screen Negative MTS Gel Crossmatch See Detail Bld Prod Order Comment 10/12/17 10/12/17 10/12/17 17:58 20:00 23:21 WBC 14.1 H RBC 4.17 L Hgb 11.4 L D 10.4 L Hct 34.0 L 30.3 L MCV 81.4 D MCH 27.3 MCHC 33.6 RDW 17.8 H Plt Count 188 D MPV 8.3 Neut % (Auto) Lymph % (Auto) [place] % (Auto) Eos % (Auto) Baso % (Auto) Neut # (Auto) Lymph # (Auto) [place] # (Auto) Eos # (Auto) Baso # (Auto) WBC Differential Differential Comment PT INR Puncture Site Patient Temperature O2 Saturation ABG pH ABG pCO2 ABG pO2 ABG HCO3 ABG O2 Content ABG Base Excess ABG Methemoglobin Hemoglobin Carboxyhemoglobin O2 Delivery Device Vent Setting Inspired O2 Critical Value Sodium Potassium Chloride Carbon Dioxide Anion Gap BUN Creatinine Estimated GFR POC Glucose 195 H Random Glucose Calcium Prot Corrected Calcium Magnesium Total Bilirubin AST ALT Alkaline Phosphatase Total Protein Albumin Blood Type Antibody Screen MTS Gel Crossmatch Bld Prod Order Comment 10/13/17 10/13/17 10/13/17 03:00 03:00 03:00 WBC 6.7 D RBC 3.36 L Hgb 9.2 L Hct 27.2 L MCV 81.0 MCH 27.2 MCHC 33.6 RDW 17.4 H Plt Count 161 MPV 8.2 Neut % (Auto) 78.2 H Lymph % (Auto) 12.9 [place] % (Auto) 8.4 H Eos % (Auto) 0.0 Baso % (Auto) 0.5 Neut # (Auto) 5.3 Lymph # (Auto) 0.9 L [place] # (Auto) 0.6 Eos # (Auto) 0.0 Baso # (Auto) 0.0 WBC Differential . Differential Comment Auto diff final PT 12.3 H INR 1.2 Puncture Site Patient Temperature O2 Saturation ABG pH ABG pCO2 ABG pO2 ABG HCO3 ABG O2 Content ABG Base Excess ABG Methemoglobin Hemoglobin Carboxyhemoglobin O2 Delivery Device Vent Setting Inspired O2 Critical Value Sodium 144 Potassium 4.0 Chloride 113 H Carbon Dioxide 22.0 Anion Gap 9 BUN 16 Creatinine 0.75 Estimated GFR Greater than 89 POC Glucose Random Glucose 174 H Calcium 7.2 L* D Prot Corrected Calcium 8.6 Magnesium 1.6 Total Bilirubin 0.3 AST 6 L ALT 16 Alkaline Phosphatase 38 L Total Protein 4.6 L D Albumin 2.0 L Blood Type Antibody Screen MTS Gel Crossmatch Bld Prod Order Comment 10/13/17 10/13/17 10/13/17 05:34 07:00 11:51 WBC RBC Hgb 8.2 L Hct 23.7 L MCV MCH MCHC RDW Plt Count MPV Neut % (Auto) Lymph % (Auto) [place] % (Auto) Eos % (Auto) Baso % (Auto) Neut # (Auto) Lymph # (Auto) [place] # (Auto) Eos # (Auto) Baso # (Auto) WBC Differential Differential Comment PT INR Puncture Site Patient Temperature O2 Saturation ABG pH ABG pCO2 ABG pO2 ABG HCO3 ABG O2 Content ABG Base Excess ABG Methemoglobin Hemoglobin Carboxyhemoglobin O2 Delivery Device Vent Setting Inspired O2 Critical Value Sodium Potassium Chloride Carbon Dioxide Anion Gap BUN Creatinine Estimated GFR POC Glucose 182 H 138 H Random Glucose Calcium Prot Corrected Calcium Magnesium Total Bilirubin AST ALT Alkaline Phosphatase Total Protein Albumin Blood Type Antibody Screen MTS Gel Crossmatch Bld Prod Order Comment 10/13/17 13:34 WBC RBC Hgb 9.1 L Hct 27.1 L MCV MCH MCHC RDW Plt Count MPV Neut % (Auto) Lymph % (Auto) [place] % (Auto) Eos % (Auto) Baso % (Auto) Neut # (Auto) Lymph # (Auto) [place] # (Auto) Eos # (Auto) Baso # (Auto) WBC Differential Differential Comment PT INR Puncture Site Patient Temperature O2 Saturation ABG pH ABG pCO2 ABG pO2 ABG HCO3 ABG O2 Content ABG Base Excess ABG Methemoglobin Hemoglobin Carboxyhemoglobin O2 Delivery Device Vent Setting Inspired O2 Critical Value Sodium Potassium Chloride Carbon Dioxide Anion Gap BUN Creatinine Estimated GFR POC Glucose Random Glucose Calcium Prot Corrected Calcium Magnesium Total Bilirubin AST ALT Alkaline Phosphatase Total Protein Albumin Blood Type Antibody Screen MTS Gel Crossmatch Bld Prod Order Comment - Imaging Impressions Chest X-Ray 10/12/17 00:00 CONCLUSION: ETT in good position. Assessment and Plan - Plan - Upper GI bleed/significant hematemesis with bright red blood with clots from his oropharynx and nares this am X2. Patient also had bright red blood in the gastrostomy tube. Pt is on Plavix, ASA, and admits to taking goody powder frequently. He has never had EGD/colonoscopy before. hgb on arrival 9.1, received one unit of blood, 3 more ordered. He was started on PPI Gtt and octreotide drip. possible PUD, esophagitis, esophageal ulcers, AVMs - Abd pain- CT on 10/12/17 showed multiple lung base nodules bilaterally nonspecific, however metastatic dz not excluded. pneumoperitoneum primarily in the mesentery around the right colon but also in the upper left and right abdomen. Pneumatosis primarily of the right colon. - ?ischemic colitis- secondary to upper GI hemorrhage precipitated hypotension. GS on the case - Hx of head and neck cancer 6 months ago while he was living in [place] all of his care has been through the [facility] system he just completed 38 radiation treatments last week and 7 rounds of Erbitux chemotherapy as well. - hx of cardiac stents- On Plavix and ASA 10/13/2017 patient is status post laparotomy, appreciate GS input. G-tube with dark maroon blood noted less than 100 cc for now with minimal/bleeding noted. Hemoglobin stable between 8.2 and 9.2. Patient has a history of head and neck cancer and appears to be very weak and deconditioned. Patient has some generalized abdominal discomfort but no obvious bleeding via the gastric tube for now. Plan for EGD today for further evaluation. Per the record octreotide drip has been discontinued. Recheck lactic acid level. Consider recheck for ABGs, weaning protocol ventilator. Plan: - NPO - EGD today. -Flagyl, Pepcid -Monitor labs with special attention to hemoglobin - Supportive care - Further recommendations to follow - Pt seen and examined by Dr. Rodgers and myself and this note is written on his behalf.
--- NOTE | 2017-10-13 15:38 | GIPROC ---
[facility] [address] [place] [facility]. [facility], [address] EGD PROCEDURE REPORT EXAM DATE: 10/13/2017 PATIENT NAME: Ludwin Angulo MR #: [id number] BIRTHDATE: 1960 ATTENDING: Josue Rodgers MD ORDER #: [id number] TRAFFIC SIGNAL MECHANIC: Christine Sullivan STATUS: inpatient INDICATIONS: The patient is a 57 yr old male here for an EGD due to hematemesis PROCEDURE PERFORMED: EGD w/ control of bleeding MEDICATIONS: Per Anesthesia and None. TOPICAL ANESTHETIC: none CONSENT: The patient understands the risks and benefits of the procedure and understands that these risks include, but are not limited to: sedation, allergic reaction, infection, perforation and/or bleeding. Alternative means of evaluation and treatment include, among others: physical exam, x-rays, and/or surgical intervention. The patient elects to proceed with this endoscopic procedure. medical equipment was checked for proper function. Hand hygiene and appropriate measures for infection prevention was taken. After the risks, benefits and alternatives of the procedure were thoroughly explained, Informed consent was verified, confirmed and timeout was successfully executed by the treatment team. The patient was anesthetized with topical anesthesia and the Pentax EG-[id number] endoscope was introduced through the mouth and advanced to the second portion of the duodenum. Retroflexed views revealed large blood clot The gastroscope was then slowly withdrawn and removed. ESOPHAGUS: The mucosa of the esophagus appeared normal. STOMACH: Blood clots in fundus mainly. Hemostasis was attempted by placing two [place] hemoclips on the bleeding site(s). DUODENUM: A medium sized bleeding, deep and punctate ulcer with a visible vessel and active bleeding was found in the duodenal bulb. Submucosal injection of epinephrine 1:10,000 was performed around the bleeding site. Bipolar (BICAP) cautery with a 7Fr probe was applied to the site using 20 grayson power. Moderate pressure was applied to the cautery site with partial hemostasis achieved. ADVERSE EVENTS: There were no complications. IMPRESSIONS: 1. The esophagus appeared normal 2. Blood clots in fundus mainly 3. Medium sized ulcer was found in the duodenal bulb; Submucosal injection of epinephrine 1:10,000 was performed around the bleeding site; Bipolar (BICAP) cautery with a 7Fr probe was applied to the site; with partial hemostasis achieved 4. Retroflexed views revealed large blood clot RECOMMENDATIONS: IV PROTONIX DRIP Hb/Hct q 6 hrs X 4 PATIENT CONDITION: stable DISPOSITION: Inpatient REPEAT EXAM: Return as needed for EGD Josue Rodgers MD eSigned: Josue Rodgers MD 10/13/2017 3:38 PM cc: PATIENT NAME: Ludwin Angulo MR#: [id number]
[2017-10-13] MEDS: fentaNYL 10 mcg/mL Premix Drip 2,500 MCG/250 ML BAG IV.SIG PRN (17:53)
[2017-10-13 23:12] LABS: Hematocrit 25.1 % (39.0-51.0); Hemoglobin 8.6 gm/dL (13.0-17.0)
[2017-10-13] MEDS ORDERED: Pharmacy Ordered Lab Info OTHER ONE (23:45)
[2017-10-14] MEDS: Vancomycin Inj 1,500 MG in Sodium Chlor 0.9% Inj 500 ML IV.SIG SCH ×2 (00:08→13:01)
[2017-10-14] MEDS: Octreotide Inj 500 MCG in Sodium Chlor 0.9% Inj 500 ML IV.CONT SCH ×2 (00:18→23:23)
[2017-10-14] MEDS: Chlorhexidine Gluconate 2% 1 Pack (2 Cloths) TOPICAL SCH (03:01)
[2017-10-14] MEDS: Oral Hygiene Kit OROPHARYNG SCH ×4 (03:02→23:24)
[2017-10-14] MEDS: Piperacil/Tazo 4.5 GM Premix 4.5 GM/100 ML BAG IV.SIG SCH ×3 (05:53→19:40)
[2017-10-14] MEDS: Insulin NovoLIN Regular Correctional Sugar Inj SQ SCH ×3 (06:02→19:41)
[2017-10-14] MEDS: fentaNYL 10 mcg/mL Premix Drip 2,500 MCG/250 ML BAG IV.SIG PRN (06:48)
[2017-10-14 06:50] LABS: Hematocrit 25.3 % (39.0-51.0); Hemoglobin 8.6 gm/dL (13.0-17.0)
[2017-10-14] MEDS: Chlorhexidine 0.12% Oral Kit 15 ML UDC OROPHARYNG SCH ×2 (09:19→21:34)
[2017-10-14] MEDS: Famotidine PF Inj 20 MG/2 ML Vial IV.PUSH SCH (09:20)
[2017-10-14] MEDS: Sod Chloride 0.9% Inj 1,000 ML IV.CONT SCH ×2 (09:30→21:34)
--- NOTE | 2017-10-14 09:46 | P.PNGS ---
Subjective Interval history: S/p EGD yesterday with clipping of large actively bleeding duodenal bulb ulcer by Dr. Rodgers. Dark maroon stools but no more bright red blood in stools. He is intubated but awake and interacting with me. Physical Exam Vital signs: Vital Signs 10/13/17 09:47 10/13/17 10:00 10/13/17 10:05 Temperature 97.8 F 98.0 F Pulse Rate 47 L 52 L 52 L Respiratory Rate 12 13 Blood Pressure 106/52 L 140/56 L Pulse Oximetry 100 100 10/13/17 11:15 10/13/17 11:30 10/13/17 12:00 Temperature 98.1 F 98.1 F Pulse Rate 56 L 54 L Respiratory Rate 12 12 12 Blood Pressure 134/58 L 144/60 H Pulse Oximetry 99 99 100 10/13/17 14:00 10/13/17 15:32 10/13/17 16:00 Temperature 97.8 F Pulse Rate 54 L 58 L Respiratory Rate 12 12 Blood Pressure 112/67 Pulse Oximetry 100 98 10/13/17 18:00 10/13/17 19:51 10/13/17 20:00 Temperature 98.1 F Pulse Rate 55 L 54 L Respiratory Rate 12 12 Blood Pressure 134/58 L Pulse Oximetry 99 98 10/13/17 22:00 10/13/17 22:45 10/14/17 00:00 Temperature 98.8 F Pulse Rate 55 L 59 L Respiratory Rate 12 12 Blood Pressure 135/85 Pulse Oximetry 98 99 10/14/17 02:00 10/14/17 04:00 10/14/17 04:15 Temperature 98.5 F Pulse Rate 55 L 54 L Respiratory Rate 12 13 Blood Pressure 128/66 Pulse Oximetry 98 99 10/14/17 06:00 10/14/17 08:00 10/14/17 08:55 Temperature 98.1 F Pulse Rate 58 L 54 L Respiratory Rate 12 10 L Blood Pressure 125/58 L Pulse Oximetry 97 96 10/14/17 09:22 Temperature Pulse Rate Respiratory Rate 12 Blood Pressure Pulse Oximetry 96 Intake & Output 10/13/17 10/14/17 10/14/17 18:59 06:59 18:59 Intake Total 2765 / 2765 1050.5 / 1050.5 Output Total 975 / 975 1625 / 1625 Balance 1790 / 1790 -574.5 / -574.5 Weight 87.3 kg Intake: IV 2165 / 2165 1050.5 / 1050.5 SandoSTATIN Inj 500 MCG In NS 500.5 / 500.5 Inj 500 ML @ 25 MCG/HR 25.02 mls/hr IV.CONT .Q20H1M [facility] Rx#: [id number] NS Inj 1,000 ML @ 84 mls/hr IV. 1000 / 1000 CONT .[id number] [facility] Rx#:[id number] Zosyn 4.5 GM Premix 4.5 gm In 200 / 200 100 / 100 100 ml @ 200 mls/hr IV.SIG Q6H [facility] Rx#:[id number] Vancomycin Inj 1,500 MG In NS 515 / 515 Inj 500 ML @ 250 mls/hr IV.SIG Q12H [facility] Rx#:[id number] fentaNYL 10 mcg/mL Premix Drip 250 / 250 250 / 250 2,500 mcg In 250 ml @ 50 MCG/HR 5 mls/hr IV.SIG TITRATE PRN Rx #:[id number] Flagyl 500 MG Inj 100 ML @ 100 200 / 200 200 / 200 mls/hr IV.SIG Q6H [facility] Rx#: [id number] Other 200 / 200 Rbc As-3 Leukoreduced Unit 200 / 200 [id number] Intake (Blood Product) Amt 400 / 400 Rbc As-3 Leukoreduced Unit 400 / 400 [id number] Output: Stool 100 / 100 Urine Amount (Catheter) 775 / 775 1325 / 1325 Indwelling Urethral Catheter 775 / 775 1325 / 1325 Gastric Drainage 200 / 200 200 / 200 Gastrostomy Tube (PEG) 200 / 200 200 / 200 Other: Date of Last Bowel Movement 10/13/17 10/13/17 10/13/17 # Bowel Movements 1 Narrative: Intubated, lightly sedated Abd: mild distention, inc c/d/i, moderate ttp - Urinary Catheter Management Indwelling Urethral Catheter Cath placed during this visit: yes Reason for continuing: Hourly intake/output Insertion date: 10/12/17 Insertion time: 10:00 Assessment and Plan - Assessment (1) Pneumoperitoneum Code(s): K66.8 - Other specified disorders of peritoneum Status: Acute (2) Upper GI bleed Code(s): K92.2 - Gastrointestinal hemorrhage, unspecified Status: Acute (3) Head and neck cancer Code(s): C76.0 - Malignant neoplasm of head, face and neck Status: Chronic - Plan POD 2 s/p dx lap for ischemic colitis, colon with pneumatosis but viable and not resected. POD 1 clipping large duodenal bulb actively bleeding ulcer. Stable overnight. If recurrent bleeding recommend evaluation by IR for embolization of GDA. I will sign off at this time and be available as needed. As long as no signs of sepsis should be ok to start either trickle feeds when ok with GI or liquids if extubated.
--- NOTE | 2017-10-14 10:13 | P.PNGI ---
Subjective Interval history: Pt resting in bed, off sedation, but remains orally intubated. Family at bedside. Per RN she was given in report that pt still had some old blood he was passing per rectum overnight. Currently PEG to gravity with small amount of what appears to be dark green colored drainage. <Jenny Ahmadi - Last Filed: 10/14/17 10:13> Physical Exam Vital signs: Vital Signs 10/13/17 10:05 10/13/17 11:15 10/13/17 11:30 Temperature 98.0 F 98.1 F Pulse Rate 52 L 56 L Respiratory Rate 13 12 12 Blood Pressure 140/56 L 134/58 L Pulse Oximetry 100 99 99 10/13/17 12:00 10/13/17 14:00 10/13/17 15:32 Temperature 98.1 F Pulse Rate 54 L 54 L Respiratory Rate 12 12 Blood Pressure 144/60 H Pulse Oximetry 100 100 10/13/17 16:00 10/13/17 18:00 10/13/17 19:51 Temperature 97.8 F Pulse Rate 58 L 55 L Respiratory Rate 12 12 Blood Pressure 112/67 Pulse Oximetry 98 99 10/13/17 20:00 10/13/17 22:00 10/13/17 22:45 Temperature 98.1 F Pulse Rate 54 L 55 L Respiratory Rate 12 12 Blood Pressure 134/58 L Pulse Oximetry 98 98 10/14/17 00:00 10/14/17 02:00 10/14/17 04:00 Temperature 98.8 F 98.5 F Pulse Rate 59 L 55 L 54 L Respiratory Rate 12 12 Blood Pressure 135/85 128/66 Pulse Oximetry 99 98 10/14/17 04:15 10/14/17 06:00 10/14/17 08:00 Temperature 98.1 F Pulse Rate 58 L 54 L Respiratory Rate 13 12 Blood Pressure 125/58 L Pulse Oximetry 99 97 10/14/17 08:55 10/14/17 09:22 Temperature Pulse Rate Respiratory Rate 10 L 12 Blood Pressure Pulse Oximetry 96 96 Intake & Output 10/13/17 10/14/17 10/14/17 18:59 06:59 18:59 Intake Total 2765 / 2765 1050.5 / 1050.5 Output Total 975 / 975 1625 / 1625 Balance 1790 / 1790 -574.5 / -574.5 Weight 87.3 kg Intake: IV 2165 / 2165 1050.5 / 1050.5 SandoSTATIN Inj 500 MCG In NS 500.5 / 500.5 Inj 500 ML @ 25 MCG/HR 25.02 mls/hr IV.CONT .Q20H1M [facility] Rx#: [id number] NS Inj 1,000 ML @ 84 mls/hr IV. 1000 / 1000 CONT .[id number] [facility] Rx#:[id number] Zosyn 4.5 GM Premix 4.5 gm In 200 / 200 100 / 100 100 ml @ 200 mls/hr IV.SIG Q6H [facility] Rx#:[id number] Vancomycin Inj 1,500 MG In NS 515 / 515 Inj 500 ML @ 250 mls/hr IV.SIG Q12H [facility] Rx#:[id number] fentaNYL 10 mcg/mL Premix Drip 250 / 250 250 / 250 2,500 mcg In 250 ml @ 50 MCG/HR 5 mls/hr IV.SIG TITRATE PRN Rx #:[id number] Flagyl 500 MG Inj 100 ML @ 100 200 / 200 200 / 200 mls/hr IV.SIG Q6H [facility] Rx#: [id number] Other 200 / 200 Rbc As-3 Leukoreduced Unit 200 / 200 [id number] Intake (Blood Product) Amt 400 / 400 Rbc As-3 Leukoreduced Unit 400 / 400 [id number] Output: Stool 100 / 100 Urine Amount (Catheter) 775 / 775 1325 / 1325 Indwelling Urethral Catheter 775 / 775 1325 / 1325 Gastric Drainage 200 / 200 200 / 200 Gastrostomy Tube (PEG) 200 / 200 200 / 200 Other: Date of Last Bowel Movement 10/13/17 10/13/17 10/13/17 # Bowel Movements 1 - Constitutional no acute distress - Routine HEENT Exam Head: Present: normocephalic, atraumatic - Routine Respiratory Exam Present: patient mechanically ventilated - Routine Abdominal Exam Present: soft, normoactive bowel sounds, tenderness. Absent: distended Comments: Pt shakes his head yes to abdominal pain on palpation - Routine Skin Exam Present: dry, warm - Routine Neurological Exam Present: alert - Urinary Catheter Management Indwelling Urethral Catheter Cath placed during this visit: yes Reason for continuing: Hourly intake/output Insertion date: 10/12/17 Insertion time: 10:00 <[email or web address] - Last Filed: 10/14/17 10:13> Vital signs: Vital Signs 10/13/17 16:00 10/13/17 18:00 10/13/17 19:51 Temperature 97.8 F Pulse Rate 58 L 55 L Respiratory Rate 12 12 Blood Pressure 112/67 Pulse Oximetry 98 99 10/13/17 20:00 10/13/17 22:00 10/13/17 22:45 Temperature 98.1 F Pulse Rate 54 L 55 L Respiratory Rate 12 12 Blood Pressure 134/58 L Pulse Oximetry 98 98 10/14/17 00:00 10/14/17 02:00 10/14/17 04:00 Temperature 98.8 F 98.5 F Pulse Rate 59 L 55 L 54 L Respiratory Rate 12 12 Blood Pressure 135/85 128/66 Pulse Oximetry 99 98 10/14/17 04:15 10/14/17 06:00 10/14/17 08:00 Temperature 98.1 F Pulse Rate 58 L 54 L Respiratory Rate 13 12 Blood Pressure 125/58 L Pulse Oximetry 99 97 10/14/17 08:55 10/14/17 09:22 10/14/17 10:00 Temperature Pulse Rate 58 L Respiratory Rate 10 L 12 Blood Pressure Pulse Oximetry 96 96 10/14/17 11:45 10/14/17 12:00 10/14/17 14:00 Temperature 98.2 F Pulse Rate 66 71 Respiratory Rate 11 L 18 Blood Pressure 166/70 H Pulse Oximetry 96 98 10/14/17 14:23 Temperature Pulse Rate Respiratory Rate Blood Pressure Pulse Oximetry 98 Intake & Output 10/13/17 10/14/17 10/14/17 18:59 06:59 18:59 Intake Total 2765 / 2765 1650.5 / 1650.5 Output Total 975 / 975 1625 / 1625 Balance 1790 / 1790 25.5 / 25.5 Weight 87.3 kg Intake: IV 2165 / 2165 1650.5 / 1650.5 SandoSTATIN Inj 500 MCG In NS 500.5 / 500.5 Inj 500 ML @ 25 MCG/HR 25.02 mls/hr IV.CONT .Q20H1M [facility] Rx#: [id number] NS Inj 1,000 ML @ 84 mls/hr IV. 1000 / 1000 CONT .[id number] [facility] Rx#:[id number] Zosyn 4.5 GM Premix 4.5 gm In 200 / 200 200 / 200 100 ml @ 200 mls/hr IV.SIG Q6H [facility] Rx#:[id number] Vancomycin Inj 1,500 MG In NS 515 / 515 500 / 500 Inj 500 ML @ 250 mls/hr IV.SIG Q12H [facility] Rx#:[id number] fentaNYL 10 mcg/mL Premix Drip 250 / 250 250 / 250 2,500 mcg In 250 ml @ 50 MCG/HR 5 mls/hr IV.SIG TITRATE PRN Rx #:[id number] Flagyl 500 MG Inj 100 ML @ 100 200 / 200 200 / 200 mls/hr IV.SIG Q6H [facility] Rx#: [id number] Other 200 / 200 Rbc As-3 Leukoreduced Unit 200 / 200 [id number] Intake (Blood Product) Amt 400 / 400 Rbc As-3 Leukoreduced Unit 400 / 400 [id number] Output: Stool 100 / 100 Urine Amount (Catheter) 775 / 775 1325 / 1325 Indwelling Urethral Catheter 775 / 775 1325 / 1325 Gastric Drainage 200 / 200 200 / 200 Gastrostomy Tube (PEG) 200 / 200 200 / 200 Other: Date of Last Bowel Movement 10/13/17 10/13/17 10/13/17 # Bowel Movements 1 - Urinary Catheter Management Indwelling Urethral Catheter Cath placed during this visit: no <Ashlee Espinal - Last Filed: 10/14/17 15:50> Results - Labs CBC & Chem 7: 10/14/17 06:27 10/13/17 03:00 Laboratory Results - last 24 hr 10/12/17 10/13/17 10/13/17 06:45 11:51 13:34 Hgb 9.1 L Hct 27.1 L POC Glucose 138 H Lactic Acid Vancomycin Trough Blood Type O Positive Antibody Screen Negative MTS Gel Crossmatch See Detail Bld Prod Order Comment 10/13/17 10/13/17 10/13/17 16:15 17:45 21:50 Hgb Hct POC Glucose 139 H Lactic Acid 0.9 Vancomycin Trough 19.5 H Blood Type Antibody Screen MTS Gel Crossmatch Bld Prod Order Comment 10/13/17 10/13/1718 22:50 23:41 05:57 Hgb 8.6 L Hct 25.1 L POC Glucose 117 H 140 H Lactic Acid Vancomycin Trough Blood Type Antibody Screen MTS Gel Crossmatch Bld Prod Order Comment 10/14/17 06:27 Hgb 8.6 L Hct 25.3 L POC Glucose Lactic Acid Vancomycin Trough Blood Type Antibody Screen MTS Gel Crossmatch Bld Prod Order Comment <Jenny Ahmadi - Last Filed: 10/14/17 10:13> - Labs CBC & Chem 7: 10/14/17 14:45 10/13/17 03:00 Laboratory Results - last 24 hr 10/12/17 10/13/17 10/13/17 06:45 16:15 17:45 Hgb Hct POC Glucose 139 H Lactic Acid 0.9 Vancomycin Trough Blood Type O Positive Antibody Screen Negative MTS Gel Crossmatch See Detail Bld Prod Order Comment 10/13/17 10/13/17 10/13/17 21:50 22:50 23:41 Hgb 8.6 L Hct 25.1 L POC Glucose 117 H Lactic Acid Vancomycin Trough 19.5 H Blood Type Antibody Screen MTS Gel Crossmatch Bld Prod Order Comment 10/14/17 10/14/17 10/14/17 05:57 06:27 12:20 Hgb 8.6 L Hct 25.3 L POC Glucose 140 H 117 H Lactic Acid Vancomycin Trough Blood Type Antibody Screen MTS Gel Crossmatch Bld Prod Order Comment 10/14/17 14:45 Hgb 8.8 L Hct 26.7 L POC Glucose Lactic Acid Vancomycin Trough Blood Type Antibody Screen MTS Gel Crossmatch Bld Prod Order Comment <Ashlee Espinal - Last Filed: 10/14/17 15:50> Assessment and Plan - Plan - Upper GI bleed/significant hematemesis with bright red blood with clots from his oropharynx and nares this am X2. Patient also had bright red blood in the gastrostomy tube. Pt is on Plavix, ASA, and admits to taking goody powder frequently. He has never had EGD/colonoscopy before. hgb on arrival 9.1, received one unit of blood, 3 more ordered. He was started on PPI Gtt and octreotide drip. History of heavy ETOH use. EGD (10/13) Normal esophagus. Blood clots in fundus mainly. Medium sized ulcer was found in the duodenal bulb, submucosal injection of epi around bleeding site and cautery applied to site with partial hemostasis, retroflexed views revealed large blood clots - Abd pain- CT on 10/12/17 showed multiple lung base nodules bilaterally nonspecific, however metastatic dz not excluded. pneumoperitoneum primarily in the mesentery around the right colon but also in the upper left and right abdomen. Pneumatosis primarily of the right colon. - Ischemic colitis- S/P diagnostic laparoscopy which revealed pneumatosis coli, all large and small bowel evaluated and appears viable- GS has signed off - Hx of head and neck cancer 6 months ago while he was living in [place] all of his care has been through the [facility] system he just completed 38 radiation treatments last week and 7 rounds of Erbitux chemotherapy as well. - hx of cardiac stents- On Plavix and ASA (10/14) Pt off sedation but remains orally intubated, CCM pending our service clearance for extubation. Per RN she received in report that pt passed some old blood per rectum over night. Currently PEG to gravity, Choudhary bag with small amount of dark green output. H/H remains stable since EGD yesterday. has signed off, states OK for trickle feeds from their standpoint or liquids if extubated Discussed with Dr. Velarde Plan: - OK to extubate - Unsure if pt tolerates PO, unable to obtain history due to ET tube, If able to take PO then can be started on liquid diet, if not OK to start trickle feeds - Continue Protonix - DC Octreotide gtt - Further recommendations to follow Pt has been seen and examined by myself and Dr. Espinal and this note is written on his behalf <Jenny Ahmadi - Last Filed: 10/14/17 10:13> - Plan Seen and examined, no bleeding. Extubated, Continue PPI, diet as tolerated. - Attending Attestation The exam, history, and the medical decision-making described in the above note were completed with the assistance of the mid-level provider. I reviewed and agree with the findings presented. I attest that I had a [id number] encounter with the patient on the same day, and personally performed and documented my assessment and findings in the medical record. <Ashlee Espinal - Last Filed: 10/14/17 15:50>
--- NOTE | 2017-10-14 11:54 | P.PNCC ---
Subjective Subjective Remarks/Hospital Course: Patient is a 57-year-old male with past medical history significant for head and neck cancer status post completion of radiation last week, PEG tube placement earlier this month, history of coronary artery disease on aspirin and Plavix, history of COPD and history of alcohol abuse who presented to the emergency department with complaints of upper GI bleed, vomiting clots approximately 400 mL. On my interview he clarifies that he was vomiting blood and also there was bright red blood from the PEG tube. There was no hemoptysis. Patient was noted to be hypotensive and pale and EMS gave 400 cc normal saline bolus. Patient was diagnosed with head and neck cancer 6 months, getting treatment at [facility]; just completed 38 radiation treatments last week and 7 rounds of Erbitux chemotherapy, (Dr. Rafita Mcclure, oncologist). Patient has no history of GI bleed. He has history of heavy alcohol use and tobacco use but quit both in March 2016 when he had a heart attack. I evaluated the patient in the ED. There is stigmata of upper GI bleed. Patient also complains about abdominal pain and is tender to palpation. Patient's blood pressure is improved after receiving total of 800 mL of normal saline, and receiving 1 unit of PRBC unmatched now. Patient is started on Protonix infusion, I would also add octreotide infusion and start Rocephin for SBP prophylaxis given history of heavy alcohol use. GI consult is pending. CT abdomen pelvis ordered by ED doctor. CT abdomen pelvis: There is moderate intraperitoneal free air with air dissecting into the mesenteric fat around the colon particularly on the right side of the colon extending to the hepatic flexure. The gas bubbles however follow along the transverse colon to the level of the splenic flexure and descending colon as well. Possibility of pneumatosis intestinalis with air leaking outside of the wall of the colon should be entertained. Start broad-spectrum antibiotics with Zosyn and vancomycin, stat consulted general surgery. Check lactic acid. Discussed the case extensively with Dr. Houser and also with Dr. Wood. EGD canceled. Patient will be emergently taken to the OR by Dr. Houser for intra- abdominal free air and right colon pneumatosis. Continue aggressive fluid resuscitation. Broad-spectrum antibiotics started as below. 10/13: Patient was taken to the operating room where using laparoscopic technique Dr. Villagomez inspected the colon from the outside and found no areas of necrosis. Patient was brought back to the surgical intensive care unit on mechanical ventilation where he continued to produce some blood in the nasogastric. For this reason he has been kept on the ventilator and we will discuss with the GI service the possibility of endoscopy from above today. SUBJECTIVE: 10/14: EGD yesterday revealed normal esophagus. Blood clots in fundus mainly. Medium sized ulcer was found in the duodenal bulb, submucosal injection of epi around bleeding site and cautery applied to site with partial hemostasis, retroflexed views revealed large blood clots. Hemoglobin currently stable at 8.6. Okay to extubate per GI. Awake and following commands on the ventilator. Objective Vital Signs / I&O: Vital Signs 10/13/17 12:00 10/13/17 14:00 10/13/17 15:32 Temperature 98.1 F Pulse Rate 54 L 54 L Respiratory Rate 12 12 Blood Pressure 144/60 H Pulse Oximetry 100 100 10/13/17 16:00 10/13/17 18:00 10/13/17 19:51 Temperature 97.8 F Pulse Rate 58 L 55 L Respiratory Rate 12 12 Blood Pressure 112/67 Pulse Oximetry 98 99 10/13/17 20:00 10/13/17 22:00 10/13/17 22:45 Temperature 98.1 F Pulse Rate 54 L 55 L Respiratory Rate 12 12 Blood Pressure 134/58 L Pulse Oximetry 98 98 10/14/17 00:00 10/14/17 02:00 10/14/17 04:00 Temperature 98.8 F 98.5 F Pulse Rate 59 L 55 L 54 L Respiratory Rate 12 12 Blood Pressure 135/85 128/66 Pulse Oximetry 99 98 10/14/17 04:15 10/14/17 06:00 10/14/17 08:00 Temperature 98.1 F Pulse Rate 58 L 54 L Respiratory Rate 13 12 Blood Pressure 125/58 L Pulse Oximetry 99 97 10/14/17 08:55 10/14/17 09:22 10/14/17 10:00 Temperature Pulse Rate 58 L Respiratory Rate 10 L 12 Blood Pressure Pulse Oximetry 96 96 10/14/17 11:45 Temperature Pulse Rate Respiratory Rate 11 L Blood Pressure Pulse Oximetry 96 Intake & Output 10/13/17 10/14/17 10/14/17 18:59 06:59 18:59 Intake Total 2765 / 2765 1050.5 / 1050.5 Output Total 975 / 975 1625 / 1625 Balance 1790 / 1790 -574.5 / -574.5 Weight 87.3 kg Intake: IV 2165 / 2165 1050.5 / 1050.5 SandoSTATIN Inj 500 MCG In NS 500.5 / 500.5 Inj 500 ML @ 25 MCG/HR 25.02 mls/hr IV.CONT .Q20H1M [facility] Rx#: [id number] NS Inj 1,000 ML @ 84 mls/hr IV. 1000 / 1000 CONT .[id number] [facility] Rx#:[id number] Zosyn 4.5 GM Premix 4.5 gm In 200 / 200 100 / 100 100 ml @ 200 mls/hr IV.SIG Q6H [facility] Rx#:[id number] Vancomycin Inj 1,500 MG In NS 515 / 515 Inj 500 ML @ 250 mls/hr IV.SIG Q12H [facility] Rx#:[id number] fentaNYL 10 mcg/mL Premix Drip 250 / 250 250 / 250 2,500 mcg In 250 ml @ 50 MCG/HR 5 mls/hr IV.SIG TITRATE PRN Rx #:[id number] Flagyl 500 MG Inj 100 ML @ 100 200 / 200 200 / 200 mls/hr IV.SIG Q6H [facility] Rx#: [id number] Other 200 / 200 Rbc As-3 Leukoreduced Unit 200 / 200 [id number] Intake (Blood Product) Amt 400 / 400 Rbc As-3 Leukoreduced Unit 400 / 400 [id number] Output: Stool 100 / 100 Urine Amount (Catheter) 775 / 775 1325 / 1325 Indwelling Urethral Catheter 775 / 775 1325 / 1325 Gastric Drainage 200 / 200 200 / 200 Gastrostomy Tube (PEG) 200 / 200 200 / 200 Other: Date of Last Bowel Movement 10/13/17 10/13/17 10/13/17 # Bowel Movements 1 Result Diagrams: 10/14/17 06:27 10/13/17 03:00 Objective Remarks: GENERAL: Ill-appearing 57-year-old man currently orotracheally intubated. SKIN: Pale/warm/dry. HEAD: Normocephalic. Atraumatic. Chronic irritation left lateral neck. EYES: No scleral icterus. No injection or drainage. Pallor present. Right eye severe cataract, blind ENT: Edentulous. Oral tracheal intubation. NECK: Supple, trachea midline. Radiation scars on the left side of the neck CARDIOVASCULAR: RRR. S1, S2 predose 4. Without murmurs, gallops, or rubs. No JVD RESPIRATORY: Breath sounds equal bilaterally. No accessory muscle use. Diffuse rhonchi and some mobile secretions. GASTROINTESTINAL: Abdomen soft, tender nondistended. PEG tube in place in right lower quadrant, open to closed bag drainage. MUSCULOSKELETAL: No cyanosis or peripheral edema. NEURO: Moves both arms with strength. Tracks with eyes and attempts to speak around endotracheal tube. Assessment and Plan - Assessment and Plan Plan: NEURO/Psych: Depression/anxiety EtOH use -Currently on fentanyl drip at 100 mcg an hour for angiosedation while intubated As needed lorazepam for anxiety/severe Resume thiamine 100 mg daily for EtOH use -Monitor neuro status closely Resume quetiapine 100 mg at night and sertraline 50 mg daily Monitor for DTs RESP: Acute respiratory failure COPD -[facility] ventilator mode =-CPAP trial 12/20 at 40%. Attempt to extubate today after spontaneous breathing trial completed Resume Symbicort 80/4.52 puffs twice daily/home medication Albuterol/ipratropium aerosols every 4 hours with albuterol aerosols every 2 hours as needed for dyspnea Tobacco cessation education provided CV: Essential hypertension Hyperlipidemia Coronary artery disease -Normal saline currently 84 cc an hour Resume rosuvastatin 20 mg a mouth daily/home medication Currently holding clopidogrel 75 mg daily aspirin 81 mg daily. Resume when okayed with GI Home medications include carvedilol 3.125 mg twice daily, amlodipine 10 mg daily and losartan 25 mg daily for hypertension along with an GI: Upper GI bleed secondary to duodenal ulcer status post epinephrine and cautery Status post exploratory laparotomy secondary to his pneumatosis coli with viable bowel. Dr. Houser PEG tube placement about 3 weeks ago -Currently on 8 mg/h infusion of pantoprazole -Octreotide 50 mcg IV push 1 and infusion at 50 mcg/h will be discontinued 10/14 -Currently piperacillin/tazobactam, vancomycin and metronidazole for GI prophylaxi -GI -EGD 10/13 - Normal esophagus. Blood clots in fundus mainly. Medium sized ulcer was found in the duodenal bulb, submucosal injection of epi around bleeding site and cautery applied to site with partial hemostasis, retroflexed views revealed large blood clots : BPH Resume tamsulosin 0.4 mg by mouth daily -Monitor renal function closely. No indication for Choudhary's catheter. Removed today ID: -Currently in vancomycin, piperacillin/tazobactam and metronidazole status post pneumatosis coli for SBP prophylaxis until variceal bleeding is ruled out HEME: Acute blood loss normocytic anemia requiring transfusion Head and neck cancer status post chemoradiation -Monitor CBC, coags -Transfuse 5 units PRBC -Oncologist is Dr. Mcclure -s/p 38 radiation treatments last week and 7 rounds of Erbitux chemotherapy -Transfuse additional unit of packed red blood cells this morning. ENDO: Type 2 diabetes -Electrolyte replacement per protocol -Sliding scale insulin with regular insulin every 6 hours Holding metformin 500 mg by mouth twice daily/home medication. PROPH: -Bilateral lower extremity SCDs/SPRING. IV pantoprazole. Avoid chemical DVT prophylaxis due to GI bleed LINES: -Utilize peripheral IVs, central line if needed Level 3 follow-up
[2017-10-14 15:05] LABS: Hematocrit 26.7 % (39.0-51.0); Hemoglobin 8.8 gm/dL (13.0-17.0)
[2017-10-14] MEDS: Nystatin/Diphenhydramine/Lidocaine Mouthwash (Adult) 120 ML Botttle SWISH-SWAL SCH (19:41)
[2017-10-14] MEDS ORDERED: fentaNYL Citrate Inj 250 MCG/5 ML Ampul ONE (20:14)
[2017-10-14 20:55] LABS: Hematocrit 27.1 % (39.0-51.0); Mean Corpuscular Hemoglobin 27.4 pg (27.0-34.0); Mean Platelet Volume 8.3 fL (7.0-11.0); Platelet Count 168 th/mm3 (150-450); Red Blood Count 3.27 mil/mm3 (4.50-5.90); Red Cell Distribution Width 17.4 % (11.6-17.2)
--- NOTE | 2017-10-14 21:39 | P.RAD ---
Post Procedure Progress Note - Pre Procedure Diagnosis (1) Upper GI bleed - Post Procedure Diagnosis (1) Upper GI bleed - Procedure Information Procedure Date: 10/14/17 Supervising Radiologist: Dangelo Flores MD Estimated blood loss (mL): 2 Anesthesia: Local, Conscious Sedation - Plan of Activity Patient to Unit: Critical Care Patient Condition: Critical Additional Comments: Angio completed. 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 Multiple attempts were made to traverse the occluded celiac origin. This was not successful. Full dictated report to follow. See PACS Report for procedural detail/treatment.
[2017-10-14] MEDS ORDERED: Pantoprazole Inj 80 MG in Sodium Chlor 0.9% Inj 100 ML IV.CONT SCH (23:00)
[2017-10-14 23:13] LABS: Activated Partial Thrombo Time 24.3 sec (24.3-30.1); INR 1.1 Ratio; Prothrombin Time 11.5 sec (9.8-11.6)
[2017-10-14] MEDS: QUEtiapine 100 MG Tablet PO SCH (23:22)
[2017-10-14] MEDS: Atropine 1% Opth Drops 5 ML Bottle RIGHT EYE SCH (23:22)
[2017-10-14] MEDS: Budesonide-Formoterol 80/4.5 MCG 6.9 GM Inhaler INH SCH (23:22)
[2017-10-14 23:50] LABS: Baso # (Auto) 0.1 th/mm3 (0.0-0.2); Baso % (Auto) 1.1 % (0.0-2.0); Eos # (Auto) 0.2 th/mm3 (0.0-0.4); Eos % (Auto) 1.6 % (0.0-4.0); Hematocrit 35.2 % (39.0-51.0); Lymph # (Auto) 1.3 th/mm3 (1.0-4.8); Lymph % (Auto) 12.7 % (9.0-44.0); Mean Corpuscular HGB Conc 34.2 % (32.0-36.0); Mean Corpuscular Hemoglobin 28.8 pg (27.0-34.0); Mean Corpuscular Volume 84.3 fL (80.0-100.0); Mean Platelet Volume 8.4 fL (7.0-11.0); Mono # (Auto) 1.2 th/mm3 (0.0-0.9); Mono % (Auto) 12.4 % (0.0-8.0); Neut # (Auto) 7.2 th/mm3 (1.8-7.7); Neut % (Auto) 72.2 % (16.0-70.0); Platelet Count 159 th/mm3 (150-450); Red Blood Count 4.18 mil/mm3 (4.50-5.90); Red Cell Distribution Width 16.7 % (11.6-17.2)
[2017-10-15 00:03] LABS: INR 1.2 Ratio; Prothrombin Time 11.8 sec (9.8-11.6)
[2017-10-15 00:17] LABS: Alanine Aminotransferase 25 U/L (12-78); Albumin 2.5 g/dL (3.4-5.0); Alkaline Phosphatase 50 U/L (45-117); Anion Gap 10 meq/L (5-15); Aspartate Aminotransferase 14 U/L (15-37); Blood Urea Nitrogen 5 mg/dL (7-18); Calcium 7.6 mg/dL (8.5-10.1); Carbon Dioxide 25.8 meq/L (21.0-32.0); Chloride 104 meq/L (98-107); Glomerular Filtration Rate Greater Than 89 mL/min (>89); Glucose,Random 131 mg/dL (74-106); Magnesium 1.4 mg/dL (1.5-2.5); Phosphorus 2.6 mg/dL (2.5-4.9); Sodium 140 meq/L (136-145); Total Protein 5.9 g/dL (6.4-8.2)
[2017-10-15 00:21] LABS: Potassium 2.6 meq/L (3.5-5.1)
[2017-10-15] MEDS: Potassium Chlor 40 mEq Premix 40 MEQ/100 ML PIGGYBACK IV.SIG PRN ×5 (00:54→19:39)
[2017-10-15] MEDS: Piperacil/Tazo 4.5 GM Premix 4.5 GM/100 ML BAG IV.SIG SCH ×5 (00:54→23:45)
[2017-10-15] MEDS: Insulin NovoLIN Regular Correctional Sugar Inj SQ SCH ×5 (00:55→23:59)
[2017-10-15] MEDS: Nystatin/Diphenhydramine/Lidocaine Mouthwash (Adult) 120 ML Botttle SWISH-SWAL SCH ×5 (00:56→20:01)
[2017-10-15] MEDS: Vancomycin Inj 1,500 MG in Sodium Chlor 0.9% Inj 500 ML IV.SIG SCH ×2 (02:08→12:47)
[2017-10-15] MEDS: Chlorhexidine Gluconate 2% 1 Pack (2 Cloths) TOPICAL SCH (03:13)
[2017-10-15] MEDS: Oral Hygiene Kit OROPHARYNG SCH ×4 (03:14→23:59)
[2017-10-15 05:30] LABS: Hematocrit 36.2 % (39.0-51.0); Hemoglobin 12.3 gm/dL (13.0-17.0)
[2017-10-15 05:42] LABS: Activated Partial Thrombo Time 25.5 sec (24.3-30.1); INR 1.2 Ratio
--- NOTE | 2017-10-15 09:30 | GIPROC ---
[facility] [address] [facility]. [facility], [address] EGD PROCEDURE REPORT EXAM DATE: 10/15/2017 PATIENT NAME: Ludwin Angulo MR #: [id number] BIRTHDATE: 1960 ATTENDING: Ashlee Espinal MD ORDER #: [id number] RISK ENGINEER: Justin Quevedo Power, Victoria, and Kanika Carvajal STATUS: inpatient INDICATIONS: The patient is a 57 yr old male here for an EGD due to acute post hemorrhagic anemia and melena PROCEDURE PERFORMED: EGD, diagnostic MEDICATIONS: None and Per Anesthesia. TOPICAL ANESTHETIC: CONSENT: The patient understands the risks and benefits of the procedure and understands that these risks include, but are not limited to: sedation, allergic reaction, infection, perforation and/or bleeding. Alternative means of evaluation and treatment include, among others: physical exam, x-rays, and/or surgical intervention. The patient elects to proceed with this endoscopic procedure. medical equipment was checked for proper function. Hand hygiene and appropriate measures for infection prevention was taken. After the risks, benefits and alternatives of the procedure were thoroughly explained, Informed consent was verified, confirmed and timeout was successfully executed by the treatment team. The patient was anesthetized with topical anesthesia and the Pentax EG-[id number] endoscope was introduced through the mouth and advanced to the second portion of the duodenum. Retroflexed views revealed blood clot The gastroscope was then slowly withdrawn and removed. ESOPHAGUS: There was LA Class A esophagitis noted. STOMACH: Old blood and clots. No active bleeding. DUODENUM: A single non-bleeding non-bleeding, deep and irregular shaped ulcer, ranging between 5-9mm in size, with a pigmented spot was found in the 1st part of the duodenum. ADVERSE EVENTS: There were no complications. IMPRESSIONS: 1. There was LA Class A esophagitis noted 2. Old blood and clots. No active bleeding 3. Single non-bleeding ulcer, ranging between 5-9mm in size, was found in the 1st part of the duodenum 4. Retroflexed views revealed blood clot RECOMMENDATIONS: 1. Continue PPI 2. Avoid NSAIDS PATIENT CONDITION: stable DISPOSITION: Inpatient REPEAT EXAM: Return as needed for EGD Ashlee Espinal MD eSigned: Ashlee Espinal MD 10/15/2017 9:30 AM cc: PATIENT NAME: Kev Ludwin W MR#: [id number]
--- NOTE | 2017-10-15 10:11 | IR ---
EXAM DATE: 10/14/2017 10:13 PM EDT AGE/SEX: 57 years / Male INDICATIONS: Patient with a history of GI bleed. CLINICAL DATA: This is the patient's initial encounter. Patient reports that signs and symptoms have been present for 1 day and indicates a pain score of 4/10. MEDICAL/SURGICAL HISTORY: . Head and neck cancer HTN CAD Diabetes COPD . [place] COMPARISON: No prior exams available for comparison. FLUORO TIME (min): 19 IMAGE SERIES: 8 ACCESS SITE: Right femoral artery SEDATION TIME (min): 40 CONTRAST (cc): 130 Visipaque (iodixanol) DEVICE(S): Right common femoral artery Sytek pad . . PROCEDURE : 1. Ultrasound-guided puncture of the access site. 2. Conscious sedation with continuous EKG and Oximetry monitoring. 3. Angiography of the celiac axis 4. Angiography of the SMA Clinical history: The patient is a 57-year-old who underwent previous endoscopy with clipping of a la rge duodenal ulcer. The patient was stable post endoscopy and clipping however approximately 1 hour p rior to the procedure the patient experienced a recurrent large upper GI bleed. We're asked to evalua te the source of the hemorrhage and perform a gastroduodenal artery embolization The risks, benefits and alternatives to the procedure were explained to the patient. The patient voic ed his understanding of this however, the patient was somewhat lethargic. Consent was deemed emergent due to the active hemorrhage.. The site was prepped in sterile fashion. Full sterile technique was used, including cap, mask, sterile gloves and gown and a large sterile sheet. Hand hygiene and 2% c hlorhexidine and/or betadine/alcohol prep was utilized per protocol for cutaneous antisepsis. Steril e gel and sterile probe cover were utilized for ultrasound guidance. The skin and subcutaneous tissu es were infiltrated with local anesthetic solution. With ultrasound and fluoroscopic guidance the selected artery was punctured and a vascular sheath was placed. A 0.035 angle Glidewire and 4 Kittitian hook catheter were advanced into the abdominal aorta. Multiple a ttempts were made to select the origin of celiac. These were unsuccessful. The catheter was withdrawn down into the origin of the SMA. The SMA origin was easily selected. Multiple runs of the SMA were p erformed. 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 The celiac reconsti tutes via the SMA injections. There is no defined gastroduodenal artery identified. There are numerou s collaterals through the pancreaticoduodenal arcade which eventually reconstitute the celiac. Multip le collaterals were present. As such, It was felt this has been occluded for quite some time. No acti ve bleeding was identified. Multiple attempts were made to cannulate the occluded celiac origin. Eventually, I was able to get a catheter through the occluded origin of the celiac and the splenic artery was briefly cannulated brandie molina, following the initial passage of a catheter through this the origin of the celiac and never be a ffectively engaged. The puncture site was closed with manual pressure and hemostasis was obtained. The patient tolerated the procedure well and there were no complications. Conscious sedation was performed with the prescribed dosages and duration as above in the presence of an independent trained radiology nurse to assist in the monitoring of the patient. EKG and oximetry remained stable throughout the procedure. CONCLUSION: 1. 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 There is reconstitution of the celiac axis via the pancreaticoduod enal arcade. It is not possible to perform gastroduodenal artery embolization as this will occlude th e hepatic and splenic arteries. In addition, there multiple collaterals present. Electronically signed by: Dangelo Flores MD 10/15/2017 10:10 AM EDT
[2017-10-15] MEDS: Sod Chloride 0.9% Inj 1,000 ML IV.CONT SCH ×2 (10:36→22:32)
[2017-10-15] MEDS: Chlorhexidine 0.12% Oral Kit 15 ML UDC OROPHARYNG SCH ×2 (10:36→20:01)
[2017-10-15] MEDS: Sertraline 50 MG Tablet PO SCH (10:38)
[2017-10-15] MEDS: Budesonide-Formoterol 80/4.5 MCG 6.9 GM Inhaler INH SCH ×2 (10:38→20:01)
[2017-10-15] MEDS ORDERED: Pharmacy Ordered Lab Info OTHER ONE (11:45)
[2017-10-15] MEDS ORDERED: Lidocaine PF 1% Inj 5 ML Syringe INFILTRATN ONE (12:00)
[2017-10-15 12:20] LABS: Alanine Aminotransferase 27 U/L (12-78); Albumin 2.6 g/dL (3.4-5.0); Alkaline Phosphatase 55 U/L (45-117); Anion Gap 9 meq/L (5-15); Aspartate Aminotransferase 14 U/L (15-37); Blood Urea Nitrogen 4 mg/dL (7-18); Chloride 103 meq/L (98-107); Glomerular Filtration Rate Greater Than 89 mL/min (>89); Glucose,Random 110 mg/dL (74-106); Sodium 139 meq/L (136-145); Total Protein 6.3 g/dL (6.4-8.2)
--- NOTE | 2017-10-15 13:24 | P.PNCC ---
Subjective Subjective Remarks/Hospital Course: Patient is a 57-year-old male with past medical history significant for head and neck cancer status post completion of radiation last week, PEG tube placement earlier this month, history of coronary artery disease on aspirin and Plavix, history of COPD and history of alcohol abuse who presented to the emergency department with complaints of upper GI bleed, vomiting clots approximately 400 mL. On my interview he clarifies that he was vomiting blood and also there was bright red blood from the PEG tube. There was no hemoptysis. Patient was noted to be hypotensive and pale and EMS gave 400 cc normal saline bolus. Patient was diagnosed with head and neck cancer 6 months, getting treatment at [facility]; just completed 38 radiation treatments last week and 7 rounds of Erbitux chemotherapy, (Dr. Rafita Mcclure, oncologist). Patient has no history of GI bleed. He has history of heavy alcohol use and tobacco use but quit both in March 2016 when he had a heart attack. I evaluated the patient in the ED. There is stigmata of upper GI bleed. Patient also complains about abdominal pain and is tender to palpation. Patient's blood pressure is improved after receiving total of 800 mL of normal saline, and receiving 1 unit of PRBC unmatched now. Patient is started on Protonix infusion, I would also add octreotide infusion and start Rocephin for SBP prophylaxis given history of heavy alcohol use. GI consult is pending. CT abdomen pelvis ordered by ED doctor. CT abdomen pelvis: There is moderate intraperitoneal free air with air dissecting into the mesenteric fat around the colon particularly on the right side of the colon extending to the hepatic flexure. The gas bubbles however follow along the transverse colon to the level of the splenic flexure and descending colon as well. Possibility of pneumatosis intestinalis with air leaking outside of the wall of the colon should be entertained. Start broad-spectrum antibiotics with Zosyn and vancomycin, stat consulted general surgery. Check lactic acid. Discussed the case extensively with Dr. Houser and also with Dr. Wood. EGD canceled. Patient will be emergently taken to the OR by Dr. Houser for intra- abdominal free air and right colon pneumatosis. Continue aggressive fluid resuscitation. Broad-spectrum antibiotics started as below. 10/13: Patient was taken to the operating room where using laparoscopic technique Dr. Houser inspected the colon from the outside and found no areas of necrosis. Patient was brought back to the surgical intensive care unit on mechanical ventilation where he continued to produce some blood in the nasogastric. For this reason he has been kept on the ventilator and we will discuss with the GI service the possibility of endoscopy from above today. 10/14: EGD yesterday revealed normal esophagus. Blood clots in fundus mainly. Medium sized ulcer was found in the duodenal bulb, submucosal injection of epi around bleeding site and cautery applied to site with partial hemostasis, retroflexed views revealed large blood clots. Hemoglobin currently stable at 8.6. Okay to extubate per GI. Awake and following commands on the ventilator. 10/15: Patient had endoscopy today showed LA Class A esophagitis old blood and clots. No active bleeding. Single non-bleeding ulcer, ranging between 5-9mm in size, in the 1st part of the duodenum. Hemoglobin remained stable at 12. Patient remains on IV Protonix. Yesterday IR performed angiogram which showed celiac origin occluded; hepatic and splenic reconstituting via the GDA rendering GDA embolization not possible. No further bleeding from PEG tube reported today Objective Vital Signs / I&O: Vital Signs 10/14/17 14:00 10/14/17 14:23 10/14/17 16:00 Temperature 98.7 F Pulse Rate 71 72 Respiratory Rate 16 Blood Pressure 119/84 Pulse Oximetry 98 96 10/14/17 16:01 10/14/17 18:00 10/14/17 19:53 Temperature 98.7 F Pulse Rate 70 73 80 Respiratory Rate 17 27 H Blood Pressure 166/72 H Pulse Oximetry 91 L 10/14/17 19:58 10/14/17 20:00 10/14/17 20:15 Temperature 97.8 F Pulse Rate 79 92 H Respiratory Rate 18 18 Blood Pressure 153/69 H Pulse Oximetry 95 97 96 10/14/17 22:00 10/14/17 22:04 10/14/17 22:49 Temperature 98.7 F 98.7 F Pulse Rate 100 H 100 H 92 H Respiratory Rate 20 20 19 Blood Pressure 153/78 H 153/78 H 154/74 H Pulse Oximetry 91 L 91 L 93 L 10/14/17 23:07 10/14/17 23:19 10/14/17 23:49 Temperature Pulse Rate 90 92 H Respiratory Rate 16 19 21 Blood Pressure 184/82 H 154/74 H Pulse Oximetry 93 L 10/15/17 00:00 10/15/17 00:19 10/15/17 01:19 Temperature 99.1 F 99.1 F Pulse Rate 92 H 92 H 98 H Respiratory Rate 16 16 21 Blood Pressure 146/71 H 146/71 H 164/76 H Pulse Oximetry 93 L 93 L 92 L 10/15/17 02:00 10/15/17 02:19 10/15/17 03:19 Temperature Pulse Rate 87 87 86 Respiratory Rate 20 18 Blood Pressure 154/72 H 181/88 H Pulse Oximetry 95 96 10/15/17 03:53 10/15/17 04:00 10/15/17 04:19 Temperature 98 F 98 F Pulse Rate 88 84 84 Respiratory Rate 16 16 16 Blood Pressure 146/69 H 146/69 H Pulse Oximetry 96 96 10/15/17 06:00 10/15/17 08:20 10/15/17 09:00 Temperature 98.8 F Pulse Rate 90 76 78 Respiratory Rate 16 16 Blood Pressure 154/76 H 150/78 H Pulse Oximetry 94 L 95 10/15/17 09:38 10/15/17 09:53 Temperature 97.8 F 97.7 F Pulse Rate 60 70 Respiratory Rate 15 15 Blood Pressure 102/50 L 109/59 L Pulse Oximetry Intake & Output 10/14/17 10/15/17 10/15/17 18:59 06:59 18:59 Intake Total 715 / 715 1515 / 1515 200 / 200 Output Total 1200 / 1200 5645 / 5645 1000 / 1000 Balance -485 / -485 -4130 / -4130 -800 / -800 Weight 81.9 kg Intake: IV 715 / 715 1115 / 1115 100 / 100 Zosyn 4.5 GM Premix 4.5 gm In 100 / 100 200 / 200 100 / 100 100 ml @ 200 mls/hr IV.SIG Q6H JUAN Rx#:[id number] KCl 40 mEq Premix Inj 40 meq In 100 / 100 100 ml @ 50 mls/hr IV.SIG Q2H PRN Rx#:[id number] Vancomycin Inj 1,500 MG In NS 515 / 515 515 / 515 Inj 500 ML @ 250 mls/hr IV.SIG Q12H JUAN Rx#:[id number] Flagyl 500 MG Inj 100 ML @ 100 100 / 100 300 / 300 mls/hr IV.SIG Q6H [facility] Rx#: [id number] Anesthesia Amount 100 / 100 Intake (Blood Product) Amt 400 / 400 Rbc As-3 Leukoreduced Unit 400 / 400 [id number] Rbc As-3 Leukoreduced Unit 0 / 0 [id number] Output: Urine Amount (Catheter) 1100 / 1100 5445 / 5445 1000 / 1000 Condom 0 / 0 5445 / 5445 1000 / 1000 Indwelling Urethral Catheter 1100 / 1100 Gastric Drainage 100 / 100 200 / 200 Gastrostomy Tube (PEG) 100 / 100 200 / 200 Other: Date of Last Bowel Movement 10/14/17 10/13/17 Result Diagrams: 10/15/17 05:15 10/15/17 10:20 Objective Remarks: GENERAL: Ill-appearing 57-year-old man currently on nasal cannula sitting up in chair SKIN: Pale/warm/dry. HEAD: Normocephalic. Atraumatic. Chronic irritation left lateral neck. EYES: No scleral icterus. No injection or drainage. Pallor present. Right eye opaque, blind ENT: Edentulous. NECK: Supple, trachea midline. Radiation scars on the left side of the neck CARDIOVASCULAR: RRR. S1, S2 normal without murmurs, gallops, or rubs. No JVD RESPIRATORY: Breath sounds equal bilaterally. No accessory muscle use. Few rhonchi GASTROINTESTINAL: Abdomen soft, tender nondistended. PEG tube in place in right lower quadrant, open to closed bag drainage. MUSCULOSKELETAL: No cyanosis or peripheral edema. NEURO: Alert awake oriented to person and somewhat to place. No focal deficits moves extremities follows commands Assessment and Plan - Problem List (1) Upper GI bleed Code(s): K92.2 - Gastrointestinal hemorrhage, unspecified Status: Acute (2) Hypotension Code(s): I95.9 - Hypotension, unspecified Status: Acute (3) Head and neck cancer Code(s): C76.0 - Malignant neoplasm of head, face and neck Status: Chronic - Assessment and Plan Plan: NEURO/Psych: Depression/anxiety Previous EtOH use Off all continuous sedation As needed lorazepam for anxiety/severe thiamine 100 mg daily -Monitor neuro status closely Quetiapine 100 mg at night and sertraline 50 mg daily RESP: Acute respiratory failure-resolved COPD Extubated 10/14/17 Resume Symbicort 80/4.52 puffs twice daily/home medication Albuterol/ipratropium aerosols every 4 hours with albuterol aerosols every 2 hours as needed for dyspnea Tobacco cessation education provided CV: Essential hypertension Hyperlipidemia Coronary artery disease -Normal saline currently 84 cc an hour-DC Resume rosuvastatin 20 mg a mouth daily/home medication Currently holding clopidogrel 75 mg daily aspirin 81 mg daily. Resume when okayed with GI Home medications include carvedilol 3.125 mg twice daily, amlodipine 10 mg daily and losartan 25 mg daily for hypertension along with an GI: Upper GI bleed secondary to duodenal ulcer status post epinephrine and cautery Status post exploratory laparotomy secondary to his pneumatosis coli with viable bowel. Dr. Houser PEG tube placement about 3 weeks ago -Currently on Protonix 8 mg/h infusion -Octreotide 50 mcg IV push 1 and infusion at 50 mcg/h discontinued 10/14 -Rocephin for GI prophylaxis -CT abdomen pelvis for abdominal pain -GI -EGD 10/13 - Normal esophagus. Blood clots in fundus mainly. Medium sized ulcer was found in the duodenal bulb, submucosal injection of epi around bleeding site and cautery applied to site with partial hemostasis, retroflexed views revealed large blood clots EGD repeat 10/15: Old blood, no active bleeding, duodenal ulcer again visualized IR attempted angiogram 10/14/17 unable to embolize the GDA for reasons cited above : BPH Resume tamsulosin 0.4 mg by mouth daily -Monitor renal function closely. No indication for Choudhary's catheter ID: -Rocephin for SBP prophylaxis HEME: Acute blood loss normocytic anemia requiring transfusion Head and neck cancer status post chemoradiation -Monitor CBC, coags -s/p PRBC transfusion, hemoglobin stable now -Oncologist is Dr. Mcclure -s/p 38 radiation treatments last week and 7 rounds of Erbitux chemotherapy -Transfuse additional unit of packed red blood cells this morning. ENDO: Type 2 diabetes -Electrolyte replacement per protocol -Sliding scale insulin Holding metformin 1 5 mg by mouth twice daily/home medication. PROPH: -Bilateral lower extremity SCDs/SPRING. IV Protonix. Avoid chemical DVT prophylaxis due to GI bleed LINES: -Utilize peripheral IVs, central line if needed Level 2 follow-up [facility] to assume care in am. Transfer out of ICU in 24 hours if remain stable Code Status: Full
[2017-10-15] MEDS: Octreotide Inj 500 MCG in Sodium Chlor 0.9% Inj 500 ML IV.CONT SCH (15:58)
[2017-10-15] MEDS: fentaNYL Citrate Inj 100 MCG/2 ML Ampul IV.PUSH PRN ×2 (17:14→23:53)
[2017-10-15] MEDS: QUEtiapine 100 MG Tablet PO SCH (20:00)
[2017-10-15] MEDS: Atropine 1% Opth Drops 5 ML Bottle RIGHT EYE SCH (20:01)
[2017-10-15 21:34] LABS: Activated Partial Thrombo Time 28.2 sec (24.3-30.1); INR 1.4 Ratio; Prothrombin Time 14.2 sec (9.8-11.6)
[2017-10-15] MEDS: Pantoprazole Inj 80 MG in Sodium Chlor 0.9% Inj 100 ML IV.CONT SCH (22:31)
[2017-10-16] MEDS: Vancomycin Inj 1,500 MG in Sodium Chlor 0.9% Inj 500 ML IV.SIG SCH ×3 (00:31→23:45)
[2017-10-16] MEDS: fentaNYL Citrate Inj 100 MCG/2 ML Ampul IV.PUSH PRN ×2 (00:32→02:09)
[2017-10-16] MEDS: Octreotide Inj 500 MCG in Sodium Chlor 0.9% Inj 500 ML IV.CONT SCH ×4 (02:16→11:56)
[2017-10-16] MEDS: Chlorhexidine Gluconate 2% 1 Pack (2 Cloths) TOPICAL SCH (03:54)
[2017-10-16] MEDS: Oral Hygiene Kit OROPHARYNG SCH ×3 (03:54→18:52)
[2017-10-16] MEDS: Piperacil/Tazo 4.5 GM Premix 4.5 GM/100 ML BAG IV.SIG SCH ×4 (05:03→23:45)
--- NOTE | 2017-10-16 05:04 | XR ---
EXAM DATE: 10/16/2017 4:47 AM EDT AGE/SEX: 57 years / Male INDICATIONS: Shortness of breath. CLINICAL DATA: This is the patient's subsequent encounter. Patient reports that signs and symptoms h ave been present for 4 - 6 days and indicates a pain score of Nonresponsive. MEDICAL/SURGICAL HISTORY: . Diabetes. Throat cancer. None. COMPARISON: C, CHEST 1V SINGLE AP, 10/12/2017. . FINDINGS: A single AP semierect portable view of the chest was obtained and demonstrates interval extubation. T he right subclavian central venous line remains in place. There is mild streaky opacity at the left l aspen base with mild blunting of left costophrenic angle. The right lung is clear. The heart size remai ns at the upper limits of normal. The bony thorax is intact. Multiple overlying electrocardiogram augusto ds are again noted. CONCLUSION: 1. Interval extubation. 2. Mild hazy opacity remains at the left lung base with mild blunting the costophrenic angle. Electronically signed by: Alexandre Henderson MD 10/16/2017 5:03 AM EDT
[2017-10-16 06:08] LABS: Hematocrit 35.9 % (39.0-51.0); Hemoglobin 12.1 gm/dL (13.0-17.0); Mean Corpuscular HGB Conc 33.8 % (32.0-36.0); Mean Corpuscular Hemoglobin 28.6 pg (27.0-34.0); Mean Corpuscular Volume 84.7 fL (80.0-100.0); Mean Platelet Volume 8.2 fL (7.0-11.0); Platelet Count 177 th/mm3 (150-450); Red Blood Count 4.24 mil/mm3 (4.50-5.90); Red Cell Distribution Width 17.1 % (11.6-17.2); White Blood Count 8.6 th/mm3 (4.0-11.0)
[2017-10-16] MEDS: Insulin NovoLIN Regular Correctional Sugar Inj SQ SCH ×3 (06:34→19:29)
[2017-10-16] MEDS: Sod Chloride 0.9% Inj 1,000 ML IV.CONT SCH ×2 (06:34→23:29)
[2017-10-16 06:52] LABS: Alanine Aminotransferase 29 U/L (12-78); Albumin 2.5 g/dL (3.4-5.0); Alkaline Phosphatase 54 U/L (45-117); Anion Gap 7 meq/L (5-15); Aspartate Aminotransferase 14 U/L (15-37); Blood Urea Nitrogen 3 mg/dL (7-18); Calcium 8.2 mg/dL (8.5-10.1); Chloride 106 meq/L (98-107); Glomerular Filtration Rate Greater Than 89 mL/min (>89); Glucose,Random 110 mg/dL (74-106); Sodium 143 meq/L (136-145); Total Protein 5.9 g/dL (6.4-8.2)
[2017-10-16 07:08] LABS: Potassium 2.9 meq/L (3.5-5.1)
[2017-10-16] MEDS: Chlorhexidine 0.12% Oral Kit 15 ML UDC OROPHARYNG SCH ×2 (07:55→23:30)
[2017-10-16] MEDS: Sertraline 50 MG Tablet PO SCH (08:46)
[2017-10-16] MEDS: Budesonide-Formoterol 80/4.5 MCG 6.9 GM Inhaler INH SCH ×2 (08:47→23:46)
[2017-10-16] MEDS: Nystatin/Diphenhydramine/Lidocaine Mouthwash (Adult) 120 ML Botttle SWISH-SWAL SCH ×4 (08:47→23:47)
[2017-10-16] MEDS: Potassium Chlor 40 mEq Premix 40 MEQ/100 ML PIGGYBACK IV.SIG PRN ×2 (09:00→11:58)
[2017-10-16] MEDS: Pantoprazole Inj 80 MG in Sodium Chlor 0.9% Inj 100 ML IV.CONT SCH (11:08)
--- NOTE | 2017-10-16 14:46 | P.PNGI ---
Subjective Interval history: Pt resting in bed, at bedside. Pt reports some nausea, denies emesis. Rectal bag with green colored stool. There has been no further reports of bleeding. <RonJenny izquierdo - Last Filed: 10/16/17 14:38> Physical Exam Vital signs: Vital Signs 10/15/17 16:00 10/15/17 16:42 10/15/17 18:00 Temperature 97.7 F Pulse Rate 72 75 94 H Respiratory Rate 17 18 Blood Pressure 131/86 Pulse Oximetry 98 10/15/17 18:30 10/15/17 19:35 10/15/17 20:00 Temperature 97.6 F Pulse Rate 81 100 H Respiratory Rate 20 16 31 H Blood Pressure 119/70 Pulse Oximetry 97 93 L 10/15/17 22:00 10/16/17 00:00 10/16/17 02:00 Temperature Pulse Rate 74 88 94 H Respiratory Rate 19 Blood Pressure 98/68 L Pulse Oximetry 94 L 10/16/17 03:30 10/16/17 04:00 10/16/17 06:00 Temperature 97.9 F Pulse Rate 85 88 86 Respiratory Rate 16 19 Blood Pressure 112/80 Pulse Oximetry 90 L 10/16/17 08:00 10/16/17 08:33 10/16/17 10:00 Temperature 98.2 F Pulse Rate 86 86 98 H Respiratory Rate 18 22 Blood Pressure 116/81 Pulse Oximetry 92 L 93 L 10/16/17 12:00 Temperature 98.2 F Pulse Rate 98 H Respiratory Rate 18 Blood Pressure 137/69 Pulse Oximetry 96 Intake & Output 10/15/17 10/16/17 10/16/17 18:59 06:59 18:59 Intake Total 2265.5 / 2265.5 1640.5 / 1640.5 875 / 875 Output Total 3975 / 3975 4400 / 4400 Balance -1709.5 / -1709.5 -2759.5 / -2759.5 875 / 875 Weight 78.5 kg Intake: IV 1415.5 / 1415.5 1490.5 / 1490.5 875 / 875 SandoSTATIN Inj 500 MCG In NS 500.5 / 500.5 490.5 / 490.5 475 / 475 Inj 500 ML @ 50 MCG/HR 50.05 mls/hr IV.CONT .Q10H JUAN Rx#: [id number] Protonix Inj 80 MG In NS Inj 100 / 100 100 ML @ 8 mls/hr IV.CONT CONT JUAN Rx#:[id number] Zosyn 4.5 GM Premix 4.5 gm In 200 / 200 200 / 200 100 ml @ 200 mls/hr IV.SIG Q6H JUAN Rx#:[id number] KCl 40 mEq Premix Inj 40 meq In 200 / 200 100 / 100 100 ml @ 50 mls/hr IV.SIG Q2H PRN Rx#:[id number] Vancomycin Inj 1,500 MG In NS 515 / 515 500 / 500 Inj 500 ML @ 250 mls/hr IV.SIG Q12H JUAN Rx#:[id number] Flagyl 500 MG Inj 100 ML @ 100 200 / 200 100 / 100 200 / 200 mls/hr IV.SIG Q6H JUAN Rx#: [id number] Oral 700 / 700 150 / 150 Oral Supplement 50 / 50 Anesthesia Amount 100 / 100 Output: Urine Amount (Catheter) 3750 / 3750 4000 / 4000 Condom 3750 / 3750 4000 / 4000 Gastric Drainage 225 / 225 400 / 400 Gastrostomy Tube (PEG) 225 / 225 400 / 400 Other: Date of Last Bowel Movement 10/13/17 10/13/17 10/14/17 # Bowel Movements 0 0 - Constitutional no acute distress - Routine HEENT Exam Head: Present: normocephalic, atraumatic - Routine Respiratory Exam Absent: accessory muscle use - Routine Abdominal Exam Present: soft, normoactive bowel sounds. Absent: tenderness, distended Comments: PEG clamped - Routine Skin Exam Present: dry, warm - Urinary Catheter Management Indwelling Urethral Catheter Cath placed during this visit: yes, but has since been removed by the nurse Reason for continuing: Decision to DC catheter Insertion date: 10/12/17 Insertion time: 10:00 Removal date: 10/14/17 Removal time: 16:00 Condom Cath placed during this visit: yes Reason for continuing: Not indwelling catheter Insertion date: 10/14/17 <Jenny Ahmadi - Last Filed: 10/16/17 14:38> Vital signs: Vital Signs 10/15/17 16:00 10/15/17 16:42 10/15/17 18:00 Temperature 97.7 F Pulse Rate 72 75 94 H Respiratory Rate 17 18 Blood Pressure 131/86 Pulse Oximetry 98 10/15/17 18:30 10/15/17 19:35 10/15/17 20:00 Temperature 97.6 F Pulse Rate 81 100 H Respiratory Rate 20 16 31 H Blood Pressure 119/70 Pulse Oximetry 97 93 L 10/15/17 22:00 10/16/17 00:00 10/16/17 02:00 Temperature Pulse Rate 74 88 94 H Respiratory Rate 19 Blood Pressure 98/68 L Pulse Oximetry 94 L 10/16/17 03:30 10/16/17 04:00 10/16/17 06:00 Temperature 97.9 F Pulse Rate 85 88 86 Respiratory Rate 16 19 Blood Pressure 112/80 Pulse Oximetry 90 L 10/16/17 08:00 10/16/17 08:33 10/16/17 10:00 Temperature 98.2 F Pulse Rate 86 86 98 H Respiratory Rate 18 22 Blood Pressure 116/81 Pulse Oximetry 92 L 93 L 10/16/17 12:00 Temperature 98.2 F Pulse Rate 98 H Respiratory Rate 18 Blood Pressure 137/69 Pulse Oximetry 96 Intake & Output 10/15/17 10/16/17 10/16/17 18:59 06:59 18:59 Intake Total 2265.5 / 2265.5 1640.5 / 1640.5 875 / 875 Output Total 3975 / 3975 4400 / 4400 Balance -1709.5 / -1709.5 -2759.5 / -2759.5 875 / 875 Weight 78.5 kg Intake: IV 1415.5 / 1415.5 1490.5 / 1490.5 875 / 875 SandoSTATIN Inj 500 MCG In NS 500.5 / 500.5 490.5 / 490.5 475 / 475 Inj 500 ML @ 50 MCG/HR 50.05 mls/hr IV.CONT .Q10H JUAN Rx#: [id number] Protonix Inj 80 MG In NS Inj 100 / 100 100 ML @ 8 mls/hr IV.CONT CONT JUAN Rx#:[id number] Zosyn 4.5 GM Premix 4.5 gm In 200 / 200 200 / 200 100 ml @ 200 mls/hr IV.SIG Q6H JUAN Rx#:[id number] KCl 40 mEq Premix Inj 40 meq In 200 / 200 100 / 100 100 ml @ 50 mls/hr IV.SIG Q2H PRN Rx#:[id number] Vancomycin Inj 1,500 MG In NS 515 / 515 500 / 500 Inj 500 ML @ 250 mls/hr IV.SIG Q12H JUAN Rx#:[id number] Flagyl 500 MG Inj 100 ML @ 100 200 / 200 100 / 100 200 / 200 mls/hr IV.SIG Q6H JUAN Rx#: [id number] Oral 700 / 700 150 / 150 Oral Supplement 50 / 50 Anesthesia Amount 100 / 100 Output: Urine Amount (Catheter) 3750 / 3750 4000 / 4000 Condom 3750 / 3750 4000 / 4000 Gastric Drainage 225 / 225 400 / 400 Gastrostomy Tube (PEG) 225 / 225 400 / 400 Other: Date of Last Bowel Movement 10/13/17 10/13/17 10/14/17 # Bowel Movements 0 0 - Urinary Catheter Management Indwelling Urethral Catheter Cath placed during this visit: no Condom Cath placed during this visit: no <Ashlee Espinal - Last Filed: 10/16/17 15:28> Results - Labs CBC & Chem 7: 10/16/17 06:00 10/16/17 06:00 Laboratory Results - last 24 hr 10/15/17 10/15/17 10/15/17 19:25 20:50 20:50 WBC RBC Hgb Hct MCV MCH MCHC RDW Plt Count MPV PT Cancelled 14.2 H INR Cancelled 1.4 APTT 28.2 Sodium Potassium Chloride Carbon Dioxide Anion Gap BUN Creatinine Estimated GFR POC Glucose 123 H Random Glucose Calcium Total Bilirubin AST ALT Alkaline Phosphatase Total Protein Albumin 10/15/17 10/16/17 10/16/17 23:47 05:55 06:00 WBC 8.6 RBC 4.24 L Hgb 12.1 L Hct 35.9 L MCV 84.7 MCH 28.6 MCHC 33.8 RDW 17.1 Plt Count 177 MPV 8.2 PT INR APTT Sodium Potassium Chloride Carbon Dioxide Anion Gap BUN Creatinine Estimated GFR POC Glucose 140 H 87 Random Glucose Calcium Total Bilirubin AST ALT Alkaline Phosphatase Total Protein Albumin 10/16/17 10/16/17 06:00 12:06 WBC RBC Hgb Hct MCV MCH MCHC RDW Plt Count MPV PT INR APTT Sodium 143 Potassium 2.9 L* Chloride 106 Carbon Dioxide 30.0 Anion Gap 7 BUN 3 L Creatinine 0.60 Estimated GFR Greater than 89 POC Glucose 106 Random Glucose 110 H Calcium 8.2 L Total Bilirubin 0.5 AST 14 L ALT 29 Alkaline Phosphatase 54 Total Protein 5.9 L Albumin 2.5 L - Imaging Impressions Chest X-Ray 10/16/17 06:00 CONCLUSION: 1. Interval extubation. 2. Mild hazy opacity remains at the left lung base with mild blunting the costophrenic angle. <Jenyn Ahmadi - Last Filed: 10/16/17 14:38> - Labs CBC & Chem 7: 10/16/17 06:00 10/16/17 06:00 Laboratory Results - last 24 hr 10/15/17 10/15/17 10/15/17 19:25 20:50 20:50 WBC RBC Hgb Hct MCV MCH MCHC RDW Plt Count MPV PT Cancelled 14.2 H INR Cancelled 1.4 APTT 28.2 Sodium Potassium Chloride Carbon Dioxide Anion Gap BUN Creatinine Estimated GFR POC Glucose 123 H Random Glucose Calcium Total Bilirubin AST ALT Alkaline Phosphatase Total Protein Albumin 10/15/17 10/16/17 10/16/17 23:47 05:55 06:00 WBC 8.6 RBC 4.24 L Hgb 12.1 L Hct 35.9 L MCV 84.7 MCH 28.6 MCHC 33.8 RDW 17.1 Plt Count 177 MPV 8.2 PT INR APTT Sodium Potassium Chloride Carbon Dioxide Anion Gap BUN Creatinine Estimated GFR POC Glucose 140 H 87 Random Glucose Calcium Total Bilirubin AST ALT Alkaline Phosphatase Total Protein Albumin 10/16/17 10/16/17 06:00 12:06 WBC RBC Hgb Hct MCV MCH MCHC RDW Plt Count MPV PT INR APTT Sodium 143 Potassium 2.9 L* Chloride 106 Carbon Dioxide 30.0 Anion Gap 7 BUN 3 L Creatinine 0.60 Estimated GFR Greater than 89 POC Glucose 106 Random Glucose 110 H Calcium 8.2 L Total Bilirubin 0.5 AST 14 L ALT 29 Alkaline Phosphatase 54 Total Protein 5.9 L Albumin 2.5 L - Imaging Impressions Chest X-Ray 10/16/17 06:00 CONCLUSION: 1. Interval extubation. 2. Mild hazy opacity remains at the left lung base with mild blunting the costophrenic angle. <Ashlee Espinal - Last Filed: 10/16/17 15:28> Assessment and Plan - Plan Assessment: - Upper GI bleed/significant hematemesis with bright red blood with clots from his oropharynx and nares this am X2. Patient also had bright red blood in the gastrostomy tube. Pt is on Plavix, ASA, and admits to taking goody powder frequently. He has never had EGD/colonoscopy before. hgb on arrival 9.1, received one unit of blood, 3 more ordered. He was started on PPI Gtt and octreotide drip. History of heavy ETOH use. EGD (10/13) Normal esophagus. Blood clots in fundus mainly. Medium sized ulcer was found in the duodenal bulb, submucosal injection of epi around bleeding site and cautery applied to site with partial hemostasis, retroflexed views revealed large blood clots - Abd pain- CT on 10/12/17 showed multiple lung base nodules bilaterally nonspecific, however metastatic dz not excluded. pneumoperitoneum primarily in the mesentery around the right colon but also in the upper left and right abdomen. Pneumatosis primarily of the right colon. - Ischemic colitis- S/P diagnostic laparoscopy which revealed pneumatosis coli, all large and small bowel evaluated and appears viable- has signed off - Hx of head and neck cancer 6 months ago while he was living in [place] all of his care has been through the [facility] system he just completed 38 radiation treatments last week and 7 rounds of Erbitux chemotherapy as well. - hx of cardiac stents- On Plavix and ASA (10/14) Pt off sedation but remains orally intubated, CCM pending our service clearance for extubation. Per RN she received in report that pt passed some old blood per rectum over night. Currently PEG to gravity, Choudhary bag with small amount of dark green output. H/H remains stable since EGD yesterday. has signed off, states OK for trickle feeds from their standpoint or liquids if extubated Discussed with Dr. Velarde (10/16) Pt S/P repeat EGD yesterday for reports of further bleeding overnight, repeat EGD revealed class A esophagitis, old blood and clots no active bleeding, single non- bleeding ulcer ranging between 5-9 mm in size in the 1st part of the duodenum. H/H stable. Rectal bag with green colored output. No emesis. Plan: - DC Octreotide gtt - DC Protonix gtt - Protonix BID - Avoid NSAIDs - PEG for feedings and medication as needed - Our service will sign off, please reconsult as needed - Have pt follow up with GI after DC Pt has been seen and examined by myself and Dr. Espinal and this note is written on his behalf <Jenny Ahmadi - Last Filed: 10/16/17 14:38> - Plan Seen and examined, no complaints, no bleeding. Protonix daily, monitor labs. Start TF as tolerated. GI will sign off. - Attending Attestation The exam, history, and the medical decision-making described in the above note were completed with the assistance of the mid-level provider. I reviewed and agree with the findings presented. I attest that I had a [id number] encounter with the patient on the same day, and personally performed and documented my assessment and findings in the medical record. <Ashlee Espinal - Last Filed: 10/16/17 15:28>
--- NOTE | 2017-10-16 17:45 | P.PN ---
Subjective Interval history: Nursing denies any deterioration since last night. Tube feeds have yet to start. Patient denies any nausea vomiting. Physical Exam Vital signs: Vital Signs 10/15/17 18:00 10/15/17 18:30 10/15/17 19:35 Temperature Pulse Rate 94 H 81 Respiratory Rate 20 16 Blood Pressure Pulse Oximetry 97 10/15/17 20:00 10/15/17 22:00 10/16/17 00:00 Temperature 97.6 F Pulse Rate 100 H 74 88 Respiratory Rate 31 H 19 Blood Pressure 119/70 98/68 L Pulse Oximetry 93 L 94 L 10/16/17 02:00 10/16/17 03:30 10/16/17 04:00 Temperature 97.9 F Pulse Rate 94 H 85 88 Respiratory Rate 16 19 Blood Pressure 112/80 Pulse Oximetry 90 L 10/16/17 06:00 10/16/17 08:00 10/16/17 08:33 Temperature 98.2 F Pulse Rate 86 86 86 Respiratory Rate 18 22 Blood Pressure 116/81 Pulse Oximetry 92 L 93 L 10/16/17 10:00 10/16/17 12:00 Temperature 98.2 F Pulse Rate 98 H 98 H Respiratory Rate 18 Blood Pressure 137/69 Pulse Oximetry 96 Intake & Output 10/15/17 10/16/17 10/16/17 18:59 06:59 18:59 Intake Total 2265.5 / 2265.5 1640.5 / 1640.5 875 / 875 Output Total 3975 / 3975 4400 / 4400 Balance -1709.5 / -1709.5 -2759.5 / -2759.5 875 / 875 Weight 78.5 kg Intake: IV 1415.5 / 1415.5 1490.5 / 1490.5 875 / 875 SandoSTATIN Inj 500 MCG In NS 500.5 / 500.5 490.5 / 490.5 475 / 475 Inj 500 ML @ 50 MCG/HR 50.05 mls/hr IV.CONT .Q10H JUAN Rx#: [id number] Protonix Inj 80 MG In NS Inj 100 / 100 100 ML @ 8 mls/hr IV.CONT CONT JUAN Rx#:[id number] Zosyn 4.5 GM Premix 4.5 gm In 200 / 200 200 / 200 100 ml @ 200 mls/hr IV.SIG Q6H JUAN Rx#:[id number] KCl 40 mEq Premix Inj 40 meq In 200 / 200 100 / 100 100 ml @ 50 mls/hr IV.SIG Q2H PRN Rx#:[id number] Vancomycin Inj 1,500 MG In NS 515 / 515 500 / 500 Inj 500 ML @ 250 mls/hr IV.SIG Q12H JUAN Rx#:[id number] Flagyl 500 MG Inj 100 ML @ 100 200 / 200 100 / 100 200 / 200 mls/hr IV.SIG Q6H JUAN Rx#: [id number] Oral 700 / 700 150 / 150 Oral Supplement 50 / 50 Anesthesia Amount 100 / 100 Output: Urine Amount (Catheter) 3750 / 3750 4000 / 4000 Condom 3750 / 3750 4000 / 4000 Gastric Drainage 225 / 225 400 / 400 Gastrostomy Tube (PEG) 225 / 225 400 / 400 Other: Date of Last Bowel Movement 10/13/17 10/13/17 10/14/17 # Bowel Movements 0 0 Narrative: Abdomen soft, nontender, nondistended PEG tube in place Lying in bed, awake, alert - Urinary Catheter Management Indwelling Urethral Catheter Cath placed during this visit: yes, but has since been removed by the nurse Reason for continuing: Decision to DC catheter Insertion date: 10/12/17 Insertion time: 10:00 Removal date: 10/14/17 Removal time: 16:00 Condom Cath placed during this visit: yes Reason for continuing: Not indwelling catheter Insertion date: 10/14/17 Results - Labs CBC & Chem 7: 10/16/17 06:00 10/16/17 06:00 Laboratory Results - last 24 hr 10/15/17 10/15/17 10/15/17 19:25 20:50 20:50 WBC RBC Hgb Hct MCV MCH MCHC RDW Plt Count MPV PT Cancelled 14.2 H INR Cancelled 1.4 APTT 28.2 Sodium Potassium Chloride Carbon Dioxide Anion Gap BUN Creatinine Estimated GFR POC Glucose 123 H Random Glucose Calcium Total Bilirubin AST ALT Alkaline Phosphatase Total Protein Albumin 10/15/17 10/16/17 10/16/17 23:47 05:55 06:00 WBC 8.6 RBC 4.24 L Hgb 12.1 L Hct 35.9 L MCV 84.7 MCH 28.6 MCHC 33.8 RDW 17.1 Plt Count 177 MPV 8.2 PT INR APTT Sodium Potassium Chloride Carbon Dioxide Anion Gap BUN Creatinine Estimated GFR POC Glucose 140 H 87 Random Glucose Calcium Total Bilirubin AST ALT Alkaline Phosphatase Total Protein Albumin 10/16/17 10/16/17 06:00 12:06 WBC RBC Hgb Hct MCV MCH MCHC RDW Plt Count MPV PT INR APTT Sodium 143 Potassium 2.9 L* Chloride 106 Carbon Dioxide 30.0 Anion Gap 7 BUN 3 L Creatinine 0.60 Estimated GFR Greater than 89 POC Glucose 106 Random Glucose 110 H Calcium 8.2 L Total Bilirubin 0.5 AST 14 L ALT 29 Alkaline Phosphatase 54 Total Protein 5.9 L Albumin 2.5 L - Imaging Impressions Chest X-Ray 10/16/17 06:00 CONCLUSION: 1. Interval extubation. 2. Mild hazy opacity remains at the left lung base with mild blunting the costophrenic angle. Assessment and Plan - Plan Upper GI bleed secondary to duodenal ulcer status post epinephrine and cautery Status post exploratory laparotomy secondary to his pneumatosis coli with viable bowel. Dr. Houser PEG tube placement about 3 weeks ago -GI signed off; repeat EGD neg for acute changes. -CT abdomen pelvis for abdominal pain -GI -EGD 10/13 - Normal esophagus. Blood clots in fundus mainly. Medium sized ulcer was found in the duodenal bulb, submucosal injection of epi around bleeding site and cautery applied to site with partial hemostasis, retroflexed views revealed large blood clots EGD repeat 10/15: Old blood, no active bleeding, duodenal ulcer again visualized IR attempted angiogram 10/14/17 unable to embolize the GDA for reasons cited above Depression/anxiety Previous EtOH use thiamine 100 mg daily Quetiapine and sertraline Acute respiratory failure-resolved COPD Extubated 10/14/17twice daily/home medication Albuterol/ipratropium aerosols Essential hypertension Hyperlipidemia Coronary artery disease -Normal saline currently 84 cc an hour-DC rosuvastatin 20 mg a mouth daily/home medication Currently holding clopidogrel 75 mg daily aspirin 81 mg daily. Resume when okayed with GI carvedilol , amlodipine and losartan BPH tamsulosin 0.4 mg by mouth daily Acute blood loss normocytic anemia requiring transfusion Head and neck cancer status post chemoradiation -s/p PRBC transfusion, hemoglobin stable now -Oncologist is Dr. Mcclure -s/p 38 radiation treatments last week and 7 rounds of Erbitux chemotherapy Type 2 diabetes -Sliding scale insulin Holding metformin 1 5 mg by mouth twice daily/home medication. PROPH: -Bilateral lower extremity SCDs/SPRING. IV Protonix. Avoid chemical DVT prophylaxis due to GI bleed Discharge Planning: possible DC home once tube feeds restarted w/ no further GI bleed symptoms.
[2017-10-16] MEDS: Pantoprazole Inj 40 MG Vial IV.PUSH SCH ×2 (19:04→23:59)
[2017-10-16] MEDS: QUEtiapine 100 MG Tablet PO SCH (23:44)
[2017-10-16] MEDS: Atropine 1% Opth Drops 5 ML Bottle RIGHT EYE SCH (23:46)
[2017-10-17] MEDS: Insulin NovoLIN Regular Correctional Sugar Inj SQ SCH ×4 (01:22→17:28)
[2017-10-17] MEDS: Oral Hygiene Kit OROPHARYNG SCH ×4 (01:22→16:06)
[2017-10-17] MEDS: Chlorhexidine Gluconate 2% 1 Pack (2 Cloths) TOPICAL SCH (05:17)
[2017-10-17] MEDS: Piperacil/Tazo 4.5 GM Premix 4.5 GM/100 ML BAG IV.SIG SCH ×3 (05:17→17:54)
[2017-10-17] MEDS: Sertraline 50 MG Tablet PO SCH (10:47)
[2017-10-17] MEDS: Sod Chloride 0.9% Inj 1,000 ML IV.CONT SCH (10:48)
[2017-10-17] MEDS: Budesonide-Formoterol 80/4.5 MCG 6.9 GM Inhaler INH SCH ×2 (10:48→20:57)
[2017-10-17] MEDS: Pantoprazole Inj 40 MG Vial IV.PUSH SCH (11:07)
[2017-10-17] MEDS: Chlorhexidine 0.12% Oral Kit 15 ML UDC OROPHARYNG SCH ×2 (11:07→20:56)
[2017-10-17] MEDS: Vancomycin Inj 1,500 MG in Sodium Chlor 0.9% Inj 500 ML IV.SIG SCH (12:15)
[2017-10-17] MEDS: Nystatin/Diphenhydramine/Lidocaine Mouthwash (Adult) 120 ML Botttle SWISH-SWAL SCH ×4 (12:33→20:57)
--- NOTE | 2017-10-17 14:38 | P.PN ---
Subjective Interval history: Nursing denies any deterioration since last night. No further bloody bowel movements, no nausea vomiting. Patient tolerating pured diet well. Patient say that the patient prefers to have a p.o. diet but due to concerns of malnutrition he undergoes PEG tube feeds at home 6x a day. Physical Exam Vital signs: Vital Signs 10/16/17 16:00 10/16/17 18:00 10/16/17 20:00 Temperature 98 F 97.9 F Pulse Rate 82 77 77 Respiratory Rate 18 20 Blood Pressure 169/80 H 140/70 Pulse Oximetry 92 L 93 L 10/17/17 00:00 10/17/17 04:00 10/17/17 08:00 Temperature 98.6 F 97.5 F L 97.8 F Pulse Rate 76 87 72 Respiratory Rate 20 18 17 Blood Pressure 143/68 H 132/69 115/71 Pulse Oximetry 95 92 L 91 L 10/17/17 08:22 10/17/17 11:50 10/17/17 12:00 Temperature 98.0 F Pulse Rate 74 73 74 Respiratory Rate 12 12 17 Blood Pressure 131/68 Pulse Oximetry 90 L 93 L Intake & Output 10/16/17 10/17/17 10/17/17 18:59 06:59 18:59 Intake Total 2730 / 2730 1355 / 1355 Output Total 2550 / 2550 400 / 400 Balance 180 / 180 955 / 955 Weight 79.2 kg Intake: IV 2490 / 2490 1115 / 1115 SandoSTATIN Inj 500 MCG In NS 475 / 475 Inj 500 ML @ 50 MCG/HR 50.05 mls/hr IV.CONT .Q10H JUAN Rx#: [id number] Protonix Inj 80 MG In NS Inj 100 / 100 100 ML @ 8 mls/hr IV.CONT CONT JUAN Rx#:[id number] NS Inj 1,000 ML @ 84 mls/hr IV. 1000 / 1000 CONT .[id number] JUAN Rx#:[id number] Zosyn 4.5 GM Premix 4.5 gm In 100 / 100 300 / 300 100 ml @ 200 mls/hr IV.SIG Q6H JUAN Rx#:[id number] KCl 40 mEq Premix Inj 40 meq In 100 / 100 100 ml @ 50 mls/hr IV.SIG Q2H PRN Rx#:[id number] Vancomycin Inj 1,500 MG In NS 515 / 515 515 / 515 Inj 500 ML @ 250 mls/hr IV.SIG Q12H JUAN Rx#:[id number] Flagyl 500 MG Inj 100 ML @ 100 200 / 200 300 / 300 mls/hr IV.SIG Q6H JUAN Rx#: [id number] Oral 240 / 240 240 / 240 Output: Urine 400 / 400 Urine Amount (Catheter) 2250 / 2250 Condom 2250 / 2250 Gastric Drainage 300 / 300 Gastrostomy Tube (PEG) 300 / 300 Other: Date of Last Bowel Movement 10/14/17 10/17/17 # Bowel Movements 0 # Incontinent Bowel Movements 1 Narrative: Normoactive bowel sounds, abdomen soft, nontender, nondistended Lying in bed, awake and alert, no acute distress - Urinary Catheter Management Indwelling Urethral Catheter Cath placed during this visit: yes, but has since been removed by the nurse Reason for continuing: Decision to DC catheter Insertion date: 10/12/17 Insertion time: 10:00 Removal date: 10/14/17 Removal time: 16:00 Condom Cath placed during this visit: yes Reason for continuing: Not indwelling catheter Insertion date: 10/14/17 Results - Labs CBC & Chem 7: 10/16/17 06:00 10/16/17 19:10 Laboratory Results - last 24 hr 10/16/17 10/16/17 10/16/17 19:10 19:24 23:50 Potassium 3.2 L POC Glucose 139 H 97 10/17/17 10/17/17 10/17/17 05:17 07:44 12:11 Potassium POC Glucose 95 130 H 99 Assessment and Plan - Plan Upper GI bleed secondary to duodenal ulcer status post epinephrine and cautery Status post exploratory laparotomy secondary to his pneumatosis coli with viable bowel. Dr. Housre PEG tube placement about 3 weeks ago -GI signed off; repeat EGD neg for acute changes. Discussed with GI, clear to resume antiplatelets including aspirin and Plavix. -CT abdomen pelvis for abdominal pain -GI -EGD 10/13 - Normal esophagus. Blood clots in fundus mainly. Medium sized ulcer was found in the duodenal bulb, submucosal injection of epi around bleeding site and cautery applied to site with partial hemostasis, retroflexed views revealed large blood clots EGD repeat 10/15: Old blood, no active bleeding, duodenal ulcer again visualized IR attempted angiogram 10/14/17 unable to embolize the GDA for reasons cited above restart home tube feeds today (isosorbide at home, jevity 1.5 comparable in hospital) on zosyn and vanc started by human services manager; ordering procalcitonin, if negative then discontinue abx. Otherwise can be transitioned to levaquin and flagyl po Depression/anxiety Previous EtOH use thiamine 100 mg daily Quetiapine and sertraline Acute respiratory failure-resolved COPD Extubated 10/14/17twice daily/home medication Albuterol/ipratropium aerosols - on RA per nursing today. Essential hypertension Hyperlipidemia Coronary artery disease rosuvastatin 20 mg a mouth daily/home medication restarted ASA and plavix per GI clearance restarting home coreg today BPH tamsulosin 0.4 mg by mouth daily Acute blood loss normocytic anemia requiring transfusion Head and neck cancer status post chemoradiation -s/p PRBC transfusion, hemoglobin stable now -Oncologist is Dr. Mcclure -s/p 38 radiation treatments last week and 7 rounds of Erbitux chemotherapy Type 2 diabetes -Sliding scale insulin Holding metformin 1 5 mg by mouth twice daily/home medication. PROPH: -Bilateral lower extremity SCDs/SPRING. IV Protonix. Avoid chemical DVT prophylaxis due to GI bleed Discharge Planning: possible DC home tomorrow once tolerating tube feeds well. on zosyn and vanc started by human services manager; ordering procalcitonin, if negative then discontinue abx. Otherwise can be transitioned to levaquin and flagyl
--- NOTE | 2017-10-17 15:19 | P.DIET ---
Nutritional Evaluation Type of nutrition evaluation: initial Nutrition consult regarding: Tube Feeding Nutrition screening: Poor PO Intake, MDC Screening comments: [facility] [place] Poor PO Intake Subjective Oral Diet Tolerance Assessment Indicates: Swallowing problems Subjective Comments: Pt sitting in bedside chair; pt's and sister in room and provide diet/TF' ing hx. Prior to this admission, pt Rx Isosource TF'ing 6-cans daily gravity drip per outpt Oncologist [facility]. Pt tolerating "a few cans" of TF'ing daily and the pt had not received the goal of 6-cans daily prior to this admission. Pt's and sister report they have several cases of Isosource formula at home. Pt tolerates small amounts, "bites", of solid foods at home. Pt says he will not eat pureed food and will not drink Ensure or Glucerna Shakes. Pt takes Metformin at home. Pt states his usual wt of 174-lb prior to diagnosis of throat and neck cancer 6-months ago. Objective - Diagnosis Upper GI Bleed, Hemorrhagic Shock, Laringeal Cancer - Objective [place] body weight: 70 kg % IBW: 123 Body Weight Used for Calculations: Actual (Initial bedscale wt 86.3kg used for assessment here) Energy Needs - Lower Range (kCal/kg): 22 Energy Needs - Upper Range (kCal/kg): 27 Lower Limit kCal/kg (kCals): 1,900 Upper Limit kCal/kg (kCals): 2,330 Lower Limit Protein Factor (Grams per Kg): 1.0 Upper Limit Protein Factor (Grams per Kg): 1.3 Lower Protein Needs (Protein): 86 Upper Protein Needs (Protein): 112 Fluid Factor (ml/kg): 27 Estimated Fluid Needs (ml): 2,330 Dietitian Reviewed in Medical Record: Current diet, Curent medications, Intake & Output, Labs, Medical history, Tube feeding Diet Order: TF'ing Jevity 1.5 6-cans daily Speech Therapy Recommendations: Yes (Pureed) Objective Comments: PMH: Depression, Anxiety, Previous Alcohol abuse, COPD, HTN, hyperlipidemia, CAD , BPH, CAD, DM, PAD, Presence of Arterial Stent, Throat Cancer s/p PEG tube placement approx. 3-weeks ago Accucheck 95, 130, 99 Meds Include: Novolin R, Lipitor, Coreg, Ativan, Flagyl, Protonix, Seroquel, Zoloft Assessment Assessment: Pt is at nutritional risk r/t recent wt loss and need for TF'ing. Pt w/PEG tube placement approx. 3-weeks ago and receiving bolus feedings w/Isosource 1.5 formula. Isosource 1.5 comparable here is Jevity 1.5. Rec gravity feedings w/ Jevity 1.5 6-cans daily w/a suggested feeding schedule of 1-can(240ml)@ 8am, 11am, 2pm, 5pm, 8pm and 11pm, to offer 2130 kcal, 90.6g Protein and 1080ml free water. Rec free water flush w/60ml free water flush before and 60ml free water flush after each feeding. Remaining fluid needs are 516ml/day for meds and po intake. PO intake for pleasure. Labs reviewed-monitor glucose closely-pt takes Metformin at home. Pt declines oral nutritional supplements here. Wt noted. Dietitian following. Recommendations: 1. Home TF'ing formula Isosource 1.5 comparable here is Jevity 1.5 2. Rec gravity feedings w/Jevity 1.5 6-cans daily w/a suggested feeding schedule of 1-can(240ml)@ 8am, 11am, 2pm, 5pm, 8pm and 11pm 3. Rec 60ml free water flush before and 60ml free water flush after each feeding. Remaining fluid needs are 516ml/day for meds and po intake 4. PO intake for pleasure 5. Pt declines oral nutritional supplements here 6. Dietitian following Dietitian to Monitor: Lab values, Glucose level, Intake & Output, Diet tolerance , Tube feeding tolerance, Weight change, PO Intake, Swallow recommendations, Medical course
[2017-10-17] MEDS: QUEtiapine 100 MG Tablet PO SCH (20:55)
[2017-10-17] MEDS: Atropine 1% Opth Drops 5 ML Bottle RIGHT EYE SCH (21:00)
[2017-10-17] MEDS ORDERED: Pharmacy Ordered Lab Info OTHER ONE (23:45)
[2017-10-18] MEDS: Pantoprazole Inj 40 MG Vial IV.PUSH SCH ×2 (00:35→11:56)
[2017-10-18] MEDS: Vancomycin Inj 1,500 MG in Sodium Chlor 0.9% Inj 500 ML IV.SIG SCH ×2 (00:50→11:57)
[2017-10-18] MEDS: Insulin NovoLIN Regular Correctional Sugar Inj SQ SCH ×4 (01:08→17:54)
[2017-10-18] MEDS: Oral Hygiene Kit OROPHARYNG SCH ×4 (01:08→15:48)
[2017-10-18] MEDS: Piperacil/Tazo 4.5 GM Premix 4.5 GM/100 ML BAG IV.SIG SCH ×4 (01:09→17:56)
[2017-10-18 07:59] LABS: Glomerular Filtration Rate Greater Than 89 mL/min (>89)
[2017-10-18] MEDS: Chlorhexidine 0.12% Oral Kit 15 ML UDC OROPHARYNG SCH (09:35)
[2017-10-18] MEDS: Budesonide-Formoterol 80/4.5 MCG 6.9 GM Inhaler INH SCH ×2 (09:37→20:49)
[2017-10-18] MEDS: Sertraline 50 MG Tablet PO SCH (09:37)
--- NOTE | 2017-10-18 12:34 | P.DCO ---
- Physical Therapy Order: Evaluate and treat - Home Health Nursing Order: Medical education, Nursing assessment with vital signs - Case Management Consult Yes - Certification I have seen patient Ludwin Angulo on 10/18/17. My clinical findings support the need for the requested home health care services because: Limited mobility due to disease progression I certify that my clinical findings support that this patient is homebound because: Post-op weakness
--- NOTE | 2017-10-18 12:43 | P.PNIM ---
Subjective Interval history: Tolerating tube feeds. Denies any chest pain or shortness of breath. Would like to go home. Physical Exam Vital signs: Vital Signs 10/17/17 15:32 10/17/17 15:58 10/17/17 16:00 Temperature 97.8 F Pulse Rate 80 80 Respiratory Rate 12 16 17 Blood Pressure 106/65 Pulse Oximetry 94 L 10/17/17 20:00 10/17/17 21:09 10/17/17 22:42 Temperature 97.6 F Pulse Rate 81 81 Respiratory Rate 18 18 Blood Pressure 118/59 L Pulse Oximetry 94 L 95 10/18/17 00:00 10/18/17 08:00 10/18/17 09:46 Temperature 97.5 F L 97.2 F L Pulse Rate 82 82 75 Respiratory Rate 18 16 16 Blood Pressure 120/58 L 113/58 L Pulse Oximetry 95 92 L 10/18/17 09:49 10/18/17 11:59 Temperature Pulse Rate 71 Respiratory Rate 18 Blood Pressure Pulse Oximetry 98 Intake & Output 10/17/17 10/18/17 10/18/17 18:59 06:59 18:59 Intake Total 1840 / 1840 680 / 680 4206.0 / 4206.0 Output Total 1800 / 1800 Balance 1840 / 1840 680 / 680 2406.0 / 2406.0 Weight 79.5 kg Intake: IV 815 / 815 200 / 200 3666.0 / 3666.0 Zosyn 4.5 GM Premix 4.5 gm In 200 / 200 100 / 100 100 / 100 100 ml @ 200 mls/hr IV.SIG Q6H JUAN Rx#:[id number] Vancomycin Inj 1,500 MG In NS 515 / 515 515 / 515 Inj 500 ML @ 250 mls/hr IV.SIG Q12H JUAN Rx#:[id number] Flagyl 500 MG Inj 100 ML @ 100 100 / 100 100 / 100 200 / 200 mls/hr IV.SIG Q6H JUAN Rx#: [id number] Oral 1025 / 1025 480 / 480 Tube Feeding 480 / 480 Water Bolus Amount 60 / 60 Output: Urine 1800 / 1800 Other: # Voids 2 3 Date of Last Bowel Movement 10/17/17 10/17/17 # Bowel Movements 1 Narrative: GENERAL: Sitting up in bed. Appears comfortable. SKIN: Warm and dry. HEAD: Normocephalic. EYES: No scleral icterus. No injection or drainage. NECK: Supple, trachea midline. No JVD or lymphadenopathy. CARDIOVASCULAR: Regular rate and rhythm without murmurs, gallops, or rubs. RESPIRATORY: Breath sounds equal bilaterally. No accessory muscle use. GASTROINTESTINAL: Abdomen soft, non-tender, nondistended. PEG tube in place without any surrounding erythema or leakage. Laparoscopic surgical incisions without any surrounding erythema. MUSCULOSKELETAL: No cyanosis, or edema. BACK: Nontender without obvious deformity. No CVA tenderness. - Urinary Catheter Management Indwelling Urethral Catheter Cath placed during this visit: yes, but has since been removed by the nurse Reason for continuing: Decision to DC catheter Insertion date: 10/12/17 Insertion time: 10:00 Removal date: 10/14/17 Removal time: 16:00 Condom Cath placed during this visit: yes Reason for continuing: Not indwelling catheter Insertion date: 10/14/17 Results - Labs CBC & Chem 7: 10/16/17 06:00 10/18/17 06:55 Laboratory Results - last 24 hr 10/15/17 10/17/17 10/17/17 05:15 16:24 19:07 Creatinine Estimated GFR POC Glucose 94 Procalcitonin 0.03 Vancomycin Trough MTS Gel Crossmatch See Detail 10/18/17 10/18/17 10/18/17 00:35 00:56 06:49 Creatinine Estimated GFR POC Glucose 105 103 Procalcitonin Vancomycin Trough 21.6 H MTS Gel Crossmatch 10/18/17 10/18/17 06:55 11:30 Creatinine 0.73 Estimated GFR Greater than 89 POC Glucose 142 H Procalcitonin Vancomycin Trough MTS Gel Crossmatch Assessment and Plan - Plan //Upper GI bleed secondary to duodenal ulcer status post epinephrine and cautery //Status post exploratory laparotomy secondary to his pneumatosis coli with viable bowel. Dr. Houser //PEG tube placement about 3 weeks ago -GI signed off; repeat EGD neg for acute changes. Discussed with GI, clear to resume antiplatelets including aspirin and Plavix. -CT abdomen pelvis for abdominal pain -GI -EGD 10/13 - Normal esophagus. Blood clots in fundus mainly. Medium sized ulcer was found in the duodenal bulb, submucosal injection of epi around bleeding site and cautery applied to site with partial hemostasis, retroflexed views revealed large blood clots EGD repeat 10/15: Old blood, no active bleeding, duodenal ulcer again visualized IR attempted angiogram 10/14/17 unable to embolize the GDA for reasons cited above restart home tube feeds today (isosorbide at home, jevity 1.5 comparable in hospital) on zosyn and vanc started by food order delivery runner; ordering procalcitonin, if negative then discontinue abx. Otherwise can be transitioned to levaquin and flagyl po = Place on 1 week of Flagyl and Levaquin to complete 14 days course of treatment. Follow with Dr. Houser as outpatient. Follow-up with. //Depression/anxiety //Previous EtOH use thiamine 100 mg daily Quetiapine and sertraline //Acute respiratory failure-resolved //COPD Extubated 10/14/17twice daily/home medication Albuterol/ipratropium aerosols - on RA per nursing today. //Essential hypertension //Hyperlipidemia //Coronary artery disease rosuvastatin 20 mg a mouth daily/home medication restarted ASA and plavix per GI clearance restarting home coreg today = Blood pressure is borderline low despite being off of amlodipine and losartan. Discontinue amlodipine and losartan at discharge. Can be restarted if necessary as outpatient. //BPH tamsulosin 0.4 mg by mouth daily //Acute blood loss normocytic anemia requiring transfusion //Head and neck cancer status post chemoradiation -s/p PRBC transfusion, hemoglobin stable now -Oncologist is Dr. Mcclure -s/p 38 radiation treatments last week and 7 rounds of Erbitux chemotherapy = Hemoglobin stable at 12. //Gastric ulcer. Seen on EGD. Started on PPI. Follow-up with GI as outpatient //Chronic pain. Checked E force. Will provide 3 day prescription for oxycodone until patient can follow-up with primary care. //Type 2 diabetes -Sliding scale insulin Holding metformin 1 5 mg by mouth twice daily/home medication. PROPH: -Bilateral lower extremity SCDs/SPRING. IV Protonix. Avoid chemical DVT prophylaxis due to GI bleed Discharge Planning: DC home today on by mouth diet and tube feeds. Antibiotics to complete treatment course. Follow-up with general surgery and GI as outpatient.
--- NOTE | 2017-10-18 12:48 | P.DS ---
Date of admission: 10/12/17 07:09 Primary care physician: Idalmis Allen Brief History from admission: Patient is a 57-year-old male with past medical history significant for head and neck cancer status post completion of radiation last week, PEG tube placement earlier this month, history of coronary artery disease on aspirin and Plavix, history of COPD and history of alcohol abuse who presented to the emergency department with complaints of upper GI bleed, vomiting clots approximately 400 mL. On my interview he clarifies that he was vomiting blood and also there was bright red blood from the PEG tube. There was no hemoptysis. Patient was noted to be hypotensive and pale and EMS gave 400 cc normal saline bolus. Patient was diagnosed with head and neck cancer 6 months, getting treatment at [facility]; just completed 38 radiation treatments last week and 7 rounds of Erbitux chemotherapy, (Dr. Rafita Mcclure, oncologist). Patient has no history of GI bleed. He has history of heavy alcohol use and tobacco use but quit both in March 2016 when he had a heart attack I evaluated the patient in the ED. There is stigmata of upper GI bleed. Patient also complains about abdominal pain and is tender to palpation. Patient 's blood pressure is improved after receiving total of 800 mL of normal saline, and receiving 1 unit of PRBC unmatched now. Patient is started on Protonix infusion, I would also add octreotide infusion and start Rocephin for SBP prophylaxis given history of heavy alcohol use. GI consult is pending. CT abdomen pelvis ordered by ED doctor DS: Medications - Discharge Medications Prescriptions: levofloxacin 750 mg PO DAILY #7 tab metronidazole 500 mg PO TID 7 Days #21 tab oxycodone 5 mg PO Q6H PRN #12 cap PRN Reason: Pain pantoprazole 40 mg PO BID 30 Days #60 tab potassium chloride [Klor-Con] 20 meq PO DAILY 30 Days each DS: Summary Hospital Course: Patient presented with leukocytosis, sepsis, pneumatosis coli on CT abdomen on admission. Patient went for emergent laparoscopy and was found to have viable small and large bowel. Patient was placed on broad-spectrum antibiotics with improvement, and will continue on by mouth antibiotics to complete 14 day course.. Patient had a large drop in hemoglobin from 11.4 on admission to 8.6. Hemoglobin stable after transfusion and patient restarted on Plavix with continued stable hemoglobin. Patient underwent EGD which shows gastric ulcer. Patient will need to continue on PPI for this. Tube feeds were restarted by a PEG tube, and patient tolerating oral diet as well. Patient was found to have borderline low blood pressures despite being off blood pressure meds. We will continue off of blood pressure meds, which can be restarted as outpatient. Patient was also found to have hypokalemia which was replaced. This is to be checked prior to discharge. For problem based summary from most recent progress note, please see below. //Upper GI bleed secondary to duodenal ulcer status post epinephrine and cautery //Status post exploratory laparotomy secondary to his pneumatosis coli with viable bowel. Dr. Houser //PEG tube placement about 3 weeks ago -GI signed off; repeat EGD neg for acute changes. Discussed with GI, clear to resume antiplatelets including aspirin and Plavix. -CT abdomen pelvis for abdominal pain -GI -EGD 10/13 - Normal esophagus. Blood clots in fundus mainly. Medium sized ulcer was found in the duodenal bulb, submucosal injection of epi around bleeding site and cautery applied to site with partial hemostasis, retroflexed views revealed large blood clots EGD repeat 10/15: Old blood, no active bleeding, duodenal ulcer again visualized IR attempted angiogram 10/14/17 unable to embolize the GDA for reasons cited above restart home tube feeds today (isosorbide at home, jevity 1.5 comparable in hospital) on zosyn and vanc started by front office agent; ordering procalcitonin, if negative then discontinue abx. Otherwise can be transitioned to levaquin and flagyl po = Place on 1 week of Flagyl and Levaquin to complete 14 days course of treatment. Follow with Dr. Houser as outpatient. Follow-up with. //Depression/anxiety //Previous EtOH use thiamine 100 mg daily Quetiapine and sertraline //Acute respiratory failure-resolved //COPD Extubated 10/14/17twice daily/home medication Albuterol/ipratropium aerosols - on RA per nursing today. //Essential hypertension //Hyperlipidemia //Coronary artery disease rosuvastatin 20 mg a mouth daily/home medication restarted ASA and plavix per GI clearance restarting home coreg today = Blood pressure is borderline low despite being off of amlodipine and losartan. Discontinue amlodipine and losartan at discharge. Can be restarted if necessary as outpatient. //BPH tamsulosin 0.4 mg by mouth daily //Acute blood loss normocytic anemia requiring transfusion //Head and neck cancer status post chemoradiation -s/p PRBC transfusion, hemoglobin stable now -Oncologist is Dr. Mcclure -s/p 38 radiation treatments last week and 7 rounds of Erbitux chemotherapy = Hemoglobin stable at 12. //Gastric ulcer. Seen on EGD. Started on PPI. Follow-up with GI as outpatient //Chronic pain. Checked E force. Will provide 3 day prescription for oxycodone until patient can follow-up with primary care. //Type 2 diabetes -Sliding scale insulin Holding metformin 1 5 mg by mouth twice daily/home medication. PROPH: -Bilateral lower extremity SCDs/SPRING. IV Protonix. Avoid chemical DVT prophylaxis due to GI bleed Discharge Planning: DC home today on by mouth diet and tube feeds. Antibiotics to complete treatment course. Follow-up with general surgery and GI as outpatient. - Time Spent with Patient Total time spent providing and/or coordinating discharge services: Greater than 30 minutes Exam Vital signs: Vital Signs 10/17/17 15:32 10/17/17 15:58 10/17/17 16:00 Temperature 97.8 F Pulse Rate 80 80 Respiratory Rate 12 16 17 Blood Pressure 106/65 Pulse Oximetry 94 L 10/17/17 20:00 10/17/17 21:09 10/17/17 22:42 Temperature 97.6 F Pulse Rate 81 81 Respiratory Rate 18 18 Blood Pressure 118/59 L Pulse Oximetry 94 L 95 10/18/17 00:00 10/18/17 08:00 10/18/17 09:46 Temperature 97.5 F L 97.2 F L Pulse Rate 82 82 75 Respiratory Rate 18 16 16 Blood Pressure 120/58 L 113/58 L Pulse Oximetry 95 92 L 10/18/17 09:49 10/18/17 11:59 Temperature Pulse Rate 71 Respiratory Rate 18 Blood Pressure Pulse Oximetry 98 Intake & Output 10/17/17 10/18/17 10/18/17 18:59 06:59 18:59 Intake Total 1840 / 1840 680 / 680 4206.0 / 4206.0 Output Total 1800 / 1800 Balance 1840 / 1840 680 / 680 2406.0 / 2406.0 Weight 79.5 kg Intake: IV 815 / 815 200 / 200 3666.0 / 3666.0 Zosyn 4.5 GM Premix 4.5 gm In 200 / 200 100 / 100 100 / 100 100 ml @ 200 mls/hr IV.SIG Q6H JUAN Rx#:[id number] Vancomycin Inj 1,500 MG In NS 515 / 515 515 / 515 Inj 500 ML @ 250 mls/hr IV.SIG Q12H JUAN Rx#:[id number] Flagyl 500 MG Inj 100 ML @ 100 100 / 100 100 / 100 200 / 200 mls/hr IV.SIG Q6H JUAN Rx#: [id number] Oral 1025 / 1025 480 / 480 Tube Feeding 480 / 480 Water Bolus Amount 60 / 60 Output: Urine 1800 / 1800 Other: # Voids 2 3 Date of Last Bowel Movement 10/17/17 10/17/17 # Bowel Movements 1 Results Procedures completed during hospitalization: emergent laparoscopy. Please see report. Labs on day of discharge: Labs from last 24 hours 10/18/17 10/18/17 10/18/17 12:02 11:30 06:55 Sodium Pending Potassium Pending Chloride Pending Carbon Dioxide Pending Anion Gap Pending BUN Pending Creatinine Pending 0.73 Estimated GFR Greater than 89 POC Glucose 142 H Random Glucose Pending Calcium Pending Procalcitonin Vancomycin Trough MTS Gel Crossmatch 10/18/17 10/18/17 10/18/17 06:49 00:56 00:35 Sodium Potassium Chloride Carbon Dioxide Anion Gap BUN Creatinine Estimated GFR POC Glucose 103 105 Random Glucose Calcium Procalcitonin Vancomycin Trough 21.6 H MTS Gel Crossmatch 10/17/17 10/17/17 10/15/17 19:07 16:24 05:15 Sodium Potassium Chloride Carbon Dioxide Anion Gap BUN Creatinine Estimated GFR POC Glucose 94 Random Glucose Calcium Procalcitonin 0.03 Vancomycin Trough MTS Gel Crossmatch See Detail - Impressions ITS Impressions Abdomen/Pelvis CT 10/12/17 06:46 CONCLUSION: 1. Multiple lung base nodules bilaterally nonspecific, however metastatic disease not excluded. 2. There is moderate intraperitoneal free air with air dissecting into the mesenteric fat around the colon particularly on the right side of the colon extending to the hepatic flexure. The gas bubbles however follow along the transverse colon to the level of the splenic flexure and descending colon as well. Possibility of pneumatosis intestinalis with air leaking outside of the wall of the colon should be entertained. Findings were discussed with Dr. Izaguirre at the time of this dictation. Celiac/Hepatic Arteriogram 10/14/17 00:00 CONCLUSION: 1. 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 There is reconstitution of the celiac axis via the pancreaticoduodenal arcade. It is not possible to perform gastroduodenal artery embolization as this will occlude the hepatic and splenic arteries. In addition, there multiple collaterals present. Chest X-Ray 10/16/17 06:00 CONCLUSION: 1. Interval extubation. 2. Mild hazy opacity remains at the left lung base with mild blunting the costophrenic angle. Discharge Plan - Discharge Disposition Patient Disposition: /Home Health Service - Discharge Condition Condition: Fair - Discharge Order Discharge Orders: Discharge Order (Routine); Ordered 10/18/17 Ordered By: Tl Moore - Discharge Details Anticipated Discharge Date: 10/18/17 - Physicians Team Attending Provider: Erika Phillip Other Providers: Leanne Wood MD ; Freedom Houser MD ; Rosalino Little MD ; [facility]
[2017-10-18 13:09] LABS: Anion Gap 9 meq/L (5-15); Blood Urea Nitrogen 5 mg/dL (7-18); Calcium 8.1 mg/dL (8.5-10.1); Carbon Dioxide 24.6 meq/L (21.0-32.0); Chloride 109 meq/L (98-107); Glomerular Filtration Rate Greater Than 89 mL/min (>89); Glucose,Random 141 mg/dL (74-106); Sodium 143 meq/L (136-145)
[2017-10-18 13:34] LABS: Potassium 2.6 meq/L (3.5-5.1)
[2017-10-18] MEDS: Nystatin/Diphenhydramine/Lidocaine Mouthwash (Adult) 120 ML Botttle SWISH-SWAL SCH ×4 (14:27→20:46)
[2017-10-18] MEDS: Potassium Chlor 10 mEq Premix 10 MEQ/100 ML PIGGYBACK IV.SIG SCH ×4 (14:28→20:50)
[2017-10-18] MEDS: QUEtiapine 100 MG Tablet PO SCH (20:47)
[2017-10-18] MEDS: Atropine 1% Opth Drops 5 ML Bottle RIGHT EYE SCH (20:49)
[2017-10-19] MEDS: Chlorhexidine 0.12% Oral Kit 15 ML UDC OROPHARYNG SCH ×3 (00:04→20:43)
[2017-10-19] MEDS: Piperacil/Tazo 4.5 GM Premix 4.5 GM/100 ML BAG IV.SIG SCH ×2 (00:05→05:55)
[2017-10-19] MEDS: Pantoprazole Inj 40 MG Vial IV.PUSH SCH ×3 (00:16→22:08)
[2017-10-19] MEDS: Potassium Chlor 10 mEq Premix 10 MEQ/100 ML PIGGYBACK IV.SIG SCH ×2 (00:18→03:03)
[2017-10-19] MEDS: Insulin NovoLIN Regular Correctional Sugar Inj SQ SCH ×5 (02:58→23:24)
[2017-10-19] MEDS: Oral Hygiene Kit OROPHARYNG SCH ×5 (03:08→23:25)
[2017-10-19] MEDS ORDERED: Vancomycin Inj 1,500 MG in Sodium Chlor 0.9% Inj 500 ML IV.SIG SCH ×4 (06:00)
[2017-10-19 07:33] LABS: Anion Gap 11 meq/L (5-15); Blood Urea Nitrogen 5 mg/dL (7-18); Calcium 7.8 mg/dL (8.5-10.1); Carbon Dioxide 22.7 meq/L (21.0-32.0); Chloride 108 meq/L (98-107); Glomerular Filtration Rate Greater Than 89 mL/min (>89); Glucose,Random 113 mg/dL (74-106); Phosphorus 2.1 mg/dL (2.5-4.9); Potassium 3.4 meq/L (3.5-5.1); Sodium 142 meq/L (136-145)
[2017-10-19] MEDS: Sertraline 50 MG Tablet PO SCH (09:07)
[2017-10-19] MEDS: Nystatin/Diphenhydramine/Lidocaine Mouthwash (Adult) 120 ML Botttle SWISH-SWAL SCH ×4 (09:08→20:45)
[2017-10-19] MEDS: Budesonide-Formoterol 80/4.5 MCG 6.9 GM Inhaler INH SCH ×2 (09:09→20:46)
--- NOTE | 2017-10-19 09:39 | P.PN ---
Subjective Interval history: Patient seen and examined this morning, their vitals are stable and the patient is afebrile. Discharge held yesterday for potassium of 3.4. Patient without complaints or concerns. Anxious to go home. Physical Exam Vital signs: Vital Signs 10/18/17 09:46 10/18/17 09:49 10/18/17 11:59 Temperature Pulse Rate 75 71 Respiratory Rate 16 18 Blood Pressure Pulse Oximetry 98 10/18/17 12:00 10/18/17 16:00 10/18/17 20:00 Temperature 97.3 F L 97.8 F 98.2 F Pulse Rate 81 78 76 Respiratory Rate 18 18 16 Blood Pressure 145/65 H 183/81 H Pulse Oximetry 96 95 94 L 10/19/17 00:00 10/19/17 04:00 10/19/17 08:00 Temperature 98.1 F 98.0 F 97.2 F L Pulse Rate 70 66 74 Respiratory Rate 14 14 16 Blood Pressure 150/70 H 126/60 163/77 H Pulse Oximetry 95 95 96 Intake & Output 10/18/17 10/19/17 10/19/17 18:59 06:59 18:59 Intake Total 6621.0 / 6621.0 700 / 700 715 / 715 Output Total 1800 / 1800 Balance 4821.0 / 4821.0 700 / 700 715 / 715 Intake: IV 4481.0 / 4481.0 700 / 700 715 / 715 Zosyn 4.5 GM Premix 4.5 gm In 200 / 200 200 / 200 100 / 100 100 ml @ 200 mls/hr IV.SIG Q6H JUAN Rx#:[id number] KCl 10 mEq Premix Inj 10 meq In 200 / 200 300 / 300 100 ml @ 100 mls/hr IV.SIG Q1H JUAN Rx#:[id number] Vancomycin Inj 1,500 MG In NS 1030 / 1030 515 / 515 Inj 500 ML @ 250 mls/hr IV.SIG Q18H JUAN Rx#:[id number] Flagyl 500 MG Inj 100 ML @ 100 200 / 200 200 / 200 100 / 100 mls/hr IV.SIG Q6H JUAN Rx#: [id number] Oral 1600 / 1600 Tube Feeding 480 / 480 Water Bolus Amount 60 / 60 Output: Urine 1800 / 1800 Other: # Voids 3 Date of Last Bowel Movement 10/17/17 Narrative: GENERAL: Sitting up in bed. Appears comfortable. SKIN: Warm and dry. HEAD: Normocephalic. EYES: No scleral icterus. No injection or drainage. NECK: Supple, trachea midline. No JVD or lymphadenopathy. CARDIOVASCULAR: Regular rate and rhythm without murmurs, gallops, or rubs. RESPIRATORY: Breath sounds equal bilaterally. No accessory muscle use. GASTROINTESTINAL: Abdomen soft, non-tender, nondistended. PEG tube in place without any surrounding erythema or leakage. Laparoscopic surgical incisions without any surrounding erythema. MUSCULOSKELETAL: No cyanosis, or edema. BACK: Nontender without obvious deformity. No CVA tenderness. - Urinary Catheter Management Indwelling Urethral Catheter Cath placed during this visit: yes, but has since been removed by the nurse Reason for continuing: Decision to DC catheter Insertion date: 10/12/17 Insertion time: 10:00 Removal date: 10/14/17 Removal time: 16:00 Condom Cath placed during this visit: yes Reason for continuing: Not indwelling catheter Insertion date: 10/14/17 Results - Labs CBC & Chem 7: 10/16/17 06:00 10/19/17 06:30 Laboratory Results - last 24 hr 10/18/17 10/18/17 10/18/17 11:30 12:02 12:02 Sodium 143 Potassium 2.6 L* Chloride 109 H Carbon Dioxide 24.6 Anion Gap 9 BUN 5 L Creatinine 0.86 Estimated GFR Greater than 89 POC Glucose 142 H Random Glucose 141 H Calcium 8.1 L Phosphorus Magnesium 1.6 Albumin 10/18/17 10/19/17 10/19/17 16:20 00:11 06:24 Sodium Potassium Chloride Carbon Dioxide Anion Gap BUN Creatinine Estimated GFR POC Glucose 105 100 100 Random Glucose Calcium Phosphorus Magnesium Albumin 10/19/17 06:30 Sodium 142 Potassium 3.4 L D Chloride 108 H Carbon Dioxide 22.7 Anion Gap 11 BUN 5 L Creatinine 0.75 Estimated GFR Greater than 89 POC Glucose Random Glucose 113 H Calcium 7.8 L Phosphorus 2.1 L Magnesium Albumin 2.0 L Assessment and Plan - Plan 57 yo male presented to the hospital with abdominal pain found to have pneumatosis coli Upper GI bleed secondary to duodenal ulcer status post epinephrine and cautery Status post exploratory laparotomy secondary to his pneumatosis coli with viable bowel. Dr. Houser PEG tube placement about 3 weeks ago -GI signed off; repeat EGD neg for acute changes. Discussed with GI, clear to resume antiplatelets including aspirin and Plavix. -CT abdomen pelvis for abdominal pain -GI -EGD 10/13 - Normal esophagus. Blood clots in fundus mainly. Medium sized ulcer was found in the duodenal bulb, submucosal injection of epi around bleeding site and cautery applied to site with partial hemostasis, retroflexed views revealed large blood clots EGD repeat 10/15: Old blood, no active bleeding, duodenal ulcer again visualized IR attempted angiogram 10/14/17 unable to embolize the GDA for reasons cited above restart home tube feeds today (isosorbide at home, jevity 1.5 comparable in hospital) on zosyn and vanc started by instrument man; ordering procalcitonin, if negative then discontinue abx. Otherwise can be transitioned to levaquin and flagyl po = Place on 1 week of Flagyl and Levaquin to complete 14 days course of treatment. Follow with Dr. Houser as outpatient. Follow-up with. Depression/anxiety/Previous EtOH use -thiamine 100 mg daily -Quetiapine and sertraline Acute respiratory failure-resolved COPD -Extubated 10/14/17twice daily/home medication -Albuterol/ipratropium aerosols - on RA per nursing today. Essential hypertension Hyperlipidemia Coronary artery disease -rosuvastatin 20 mg a mouth daily/home medication -restarted ASA and plavix per GI clearance -coreg resumed = Blood pressure initially borderline low despite being off of amlodipine and losartan. amlodipine and losartan were d/c aydischarge. Can be restarted if necessary as outpatient. BPH -tamsulosin 0.4 mg by mouth daily Acute blood loss normocytic anemia requiring transfusion Head and neck cancer status post chemoradiation -s/p PRBC transfusion, hemoglobin stable now -Oncologist is Dr. Mcclure -s/p 38 radiation treatments last week and 7 rounds of Erbitux chemotherapy = Hemoglobin stable at 12. Gastric ulcer. Seen on EGD. Started on PPI. Follow-up with GI as outpatient Chronic pain. Checked E force. Will provide 3 day prescription for oxycodone until patient can follow-up with primary care. Type 2 diabetes -Sliding scale insulin Holding metformin 1 5 mg by mouth twice daily/home medication. PROPH: -Bilateral lower extremity SCDs/SPRING. IV Protonix. Avoid chemical DVT prophylaxis due to GI bleed HypoK - K 3.4, give 30 KCL x1 Discharge Planning: Patient is clear for D/C
[2017-10-19 13:01] LABS: Baso # (Auto) 0.1 th/mm3 (0.0-0.2); Baso % (Auto) 0.8 % (0.0-2.0); Eos # (Auto) 0.3 th/mm3 (0.0-0.4); Eos % (Auto) 4.6 % (0.0-4.0); Hematocrit 36.9 % (39.0-51.0); Hemoglobin 11.9 gm/dL (13.0-17.0); Lymph # (Auto) 0.9 th/mm3 (1.0-4.8); Lymph % (Auto) 12.4 % (9.0-44.0); Mean Corpuscular HGB Conc 32.3 % (32.0-36.0); Mean Corpuscular Volume 89.5 fL (80.0-100.0); Mean Platelet Volume 8.6 fL (7.0-11.0); Mono # (Auto) 1.1 th/mm3 (0.0-0.9); Mono % (Auto) 14.7 % (0.0-8.0); Neut # (Auto) 5.2 th/mm3 (1.8-7.7); Neut % (Auto) 67.5 % (16.0-70.0); Platelet Count 207 th/mm3 (150-450); Red Blood Count 4.12 mil/mm3 (4.50-5.90); Red Cell Distribution Width 16.8 % (11.6-17.2); White Blood Count 7.6 th/mm3 (4.0-11.0)
[2017-10-19] MEDS: Atropine 1% Opth Drops 5 ML Bottle RIGHT EYE SCH (20:44)
[2017-10-19] MEDS: QUEtiapine 100 MG Tablet PO SCH (20:45)
[2017-10-20] MEDS: Insulin NovoLIN Regular Correctional Sugar Inj SQ SCH ×2 (05:12→12:39)
[2017-10-20] MEDS: Oral Hygiene Kit OROPHARYNG SCH ×2 (05:12→12:39)
[2017-10-20 06:46] LABS: Anion Gap 9 meq/L (5-15); Blood Urea Nitrogen 4 mg/dL (7-18); Calcium 8.1 mg/dL (8.5-10.1); Carbon Dioxide 25.5 meq/L (21.0-32.0); Chloride 110 meq/L (98-107); Glomerular Filtration Rate Greater Than 89 mL/min (>89); Glucose,Random 91 mg/dL (74-106); Sodium 144 meq/L (136-145)
[2017-10-20] MEDS: Sertraline 50 MG Tablet PO SCH (09:02)
--- NOTE | 2017-10-20 09:03 | P.PN ---
Subjective Interval history: Patient seen and examined this morning, their vitals are stable and the patient is afebrile. Patient frustrated that his potassium is low. Reports right after his tube feeds he has significant diarrhea that is liquid. Denies blood in stool. IS working with the [facility] to come up with a regimine but has not yet found the right balance with the feeds and fiber. Physical Exam Vital signs: Vital Signs 10/19/17 12:00 10/19/17 16:00 10/19/17 17:46 Temperature 97.4 F L 97.9 F Pulse Rate 74 78 Respiratory Rate 18 17 Blood Pressure 140/82 179/96 H Pulse Oximetry 94 L 96 98 10/19/17 20:33 10/20/17 00:22 Temperature 97.9 F 98.7 F Pulse Rate 81 65 Respiratory Rate 16 18 Blood Pressure 180/89 H 124/58 L Pulse Oximetry 95 96 Intake & Output 10/19/17 10/20/17 10/20/17 18:59 06:59 18:59 Intake Total 1490 / 1490 680 / 680 100 / 100 Balance 1490 / 1490 680 / 680 100 / 100 Weight 79.5 kg Intake: IV 1015 / 1015 100 / 100 100 / 100 Zosyn 4.5 GM Premix 4.5 gm In 100 / 100 100 ml @ 200 mls/hr IV.SIG Q6H JUAN Rx#:[id number] Vancomycin Inj 1,500 MG In NS 515 / 515 Inj 500 ML @ 250 mls/hr IV.SIG Q18H JUAN Rx#:[id number] Flagyl 500 MG Inj 100 ML @ 100 300 / 300 100 / 100 100 / 100 mls/hr IV.SIG Q6H JUAN Rx#: [id number] Oral 475 / 475 580 / 580 Other: # Voids 6 2 Date of Last Bowel Movement 10/17/17 # Bowel Movements 5 Narrative: GENERAL: Sitting up in bed. Appears comfortable. SKIN: Warm and dry. HEAD: Normocephalic. EYES: No scleral icterus. No injection or drainage. NECK: Supple, trachea midline. No JVD or lymphadenopathy. CARDIOVASCULAR: Regular rate and rhythm without murmurs, gallops, or rubs. RESPIRATORY: Breath sounds equal bilaterally. No accessory muscle use. GASTROINTESTINAL: Abdomen soft, non-tender, nondistended. PEG tube in place without any surrounding erythema or leakage. Laparoscopic surgical incisions without any surrounding erythema. MUSCULOSKELETAL: No cyanosis, or edema. BACK: Nontender without obvious deformity. No CVA tenderness. - Urinary Catheter Management Indwelling Urethral Catheter Cath placed during this visit: yes, but has since been removed by the nurse Reason for continuing: Decision to DC catheter Insertion date: 10/12/17 Insertion time: 10:00 Removal date: 10/14/17 Removal time: 16:00 Condom Cath placed during this visit: yes Reason for continuing: Not indwelling catheter Insertion date: 10/14/17 Results - Labs CBC & Chem 7: 10/19/17 12:45 10/20/17 05:15 Laboratory Results - last 24 hr 10/19/17 10/19/17 10/19/17 09:14 12:45 12:45 WBC 7.6 RBC 4.12 L Hgb 11.9 L Hct 36.9 L MCV 89.5 MCH 29.0 MCHC 32.3 RDW 16.8 Plt Count 207 MPV 8.6 Neut % (Auto) 67.5 Lymph % (Auto) 12.4 Weston % (Auto) 14.7 H Eos % (Auto) 4.6 H Baso % (Auto) 0.8 Neut # (Auto) 5.2 Lymph # (Auto) 0.9 L [place]on # (Auto) 1.1 H Eos # (Auto) 0.3 Baso # (Auto) 0.1 WBC Differential . Differential Comment Auto diff final Sodium Potassium Chloride Carbon Dioxide Anion Gap BUN Creatinine Estimated GFR POC Glucose 100 Random Glucose Calcium B-Natriuretic Peptide 161 H 10/19/17 10/19/17 10/19/17 12:45 12:59 16:52 WBC RBC Hgb Hct MCV MCH MCHC RDW Plt Count MPV Neut % (Auto) Lymph % (Auto) [place]on % (Auto) Eos % (Auto) Baso % (Auto) Neut # (Auto) Lymph # (Auto) [place]on # (Auto) Eos # (Auto) Baso # (Auto) WBC Differential Differential Comment Sodium Potassium 3.0 L Chloride Carbon Dioxide Anion Gap BUN Creatinine Estimated GFR POC Glucose 136 H 96 Random Glucose Calcium B-Natriuretic Peptide 10/19/17 10/20/17 10/20/17 20:40 05:10 05:15 WBC RBC Hgb Hct MCV MCH MCHC RDW Plt Count MPV Neut % (Auto) Lymph % (Auto) Weston % (Auto) Eos % (Auto) Baso % (Auto) Neut # (Auto) Lymph # (Auto) [place]on # (Auto) Eos # (Auto) Baso # (Auto) WBC Differential Differential Comment Sodium 144 Potassium 3.0 L Chloride 110 H Carbon Dioxide 25.5 Anion Gap 9 BUN 4 L Creatinine 0.63 Estimated GFR Greater than 89 POC Glucose 114 H 93 Random Glucose 91 Calcium 8.1 L B-Natriuretic Peptide Assessment and Plan - Plan 57 yo male presented to the hospital with abdominal pain found to have pneumatosis coli Upper GI bleed secondary to duodenal ulcer status post epinephrine and cautery Status post exploratory laparotomy secondary to his pneumatosis coli with viable bowel. Dr. Houser PEG tube placement about 3 weeks ago -GI signed off; repeat EGD neg for acute changes. Discussed with GI, clear to resume antiplatelets including aspirin and Plavix. -CT abdomen pelvis for abdominal pain -GI -EGD 10/13 - Normal esophagus. Blood clots in fundus mainly. Medium sized ulcer was found in the duodenal bulb, submucosal injection of epi around bleeding site and cautery applied to site with partial hemostasis, retroflexed views revealed large blood clots EGD repeat 10/15: Old blood, no active bleeding, duodenal ulcer again visualized IR attempted angiogram 10/14/17 unable to embolize the GDA for reasons cited above restart home tube feeds today (isosorbide at home, jevity 1.5 comparable in hospital) on zosyn and vanc started by screener and blender operator; ordering procalcitonin, if negative then discontinue abx. Otherwise can be transitioned to levaquin and flagyl po = Place on 1 week of Flagyl and Levaquin to complete 14 days course of treatment. Follow with Dr. Houser as outpatient. Depression/anxiety/Previous EtOH use -thiamine 100 mg daily -Quetiapine and sertraline Acute respiratory failure-resolved COPD -Extubated 10/14/17twice daily/home medication -Albuterol/ipratropium aerosols - on RA per nursing today. Essential hypertension Hyperlipidemia Coronary artery disease -rosuvastatin 20 mg a mouth daily/home medication -restarted ASA and plavix per GI clearance -coreg resumed = Blood pressure initially borderline low despite being off of amlodipine and losartan. amlodipine and losartan were d/c discharge. Can be restarted if necessary as outpatient. BPH -tamsulosin 0.4 mg by mouth daily Acute blood loss normocytic anemia requiring transfusion Head and neck cancer status post chemoradiation -s/p PRBC transfusion, hemoglobin stable now -Oncologist is Dr. Mcclure -s/p 38 radiation treatments last week and 7 rounds of Erbitux chemotherapy = Hemoglobin stable at 12. Gastric ulcer. Seen on EGD. Started on PPI. Follow-up with GI as outpatient Chronic pain. Checked E force. Will provide 3 day prescription for oxycodone until patient can follow-up with primary care. Type 2 diabetes -Sliding scale insulin Holding metformin 1 5 mg by mouth twice daily/home medication. PROPH: -Bilateral lower extremity SCDs/SPRING. IV Protonix. Avoid chemical DVT prophylaxis due to GI bleed HypoK - check Mg level - is not responding appropriately to replacement - replace this am, recheck at noon Tube Feeds - I have reconsulted Dietary to assist with tube feed reccs given significant diarrhea (which is likely why the patients potassium continues to be low and not responsive to replacement) Discharge Planning: D/C pending potassium level, please page Dr. Phillip with Mg and K level.
[2017-10-20] MEDS: Nystatin/Diphenhydramine/Lidocaine Mouthwash (Adult) 120 ML Botttle SWISH-SWAL SCH ×3 (09:06→13:27)
[2017-10-20] MEDS: Budesonide-Formoterol 80/4.5 MCG 6.9 GM Inhaler INH SCH (09:09)
[2017-10-20] MEDS ORDERED: LORazepam 0.5 MG Tablet PO ONE (11:30)
[2017-10-20] MEDS ORDERED: Loperamide 2 MG Capsule PO ONE (11:30)
[2017-10-20] MEDS: Chlorhexidine 0.12% Oral Kit 15 ML UDC OROPHARYNG SCH (12:37)
[2017-10-20] MEDS: Pantoprazole Inj 40 MG Vial IV.PUSH SCH (12:38)
[2017-10-20 12:53] LABS: Magnesium 1.8 mg/dL (1.5-2.5); Potassium 3.4 meq/L (3.5-5.1)
[2017-10-22 18:01] VITALS: PULSE 92; RESP 17
[2017-10-22 18:11] VITALS: BP 190/91; TEMP 97.8; O2SAT 93
== END 2017-10-20 15:19 | disposition home health service (06) ==
LOC: NEPC 06:08 → NEDA 07:09 → HIMC 09:10 → N03 14:13 → N07 10-16 19:46
PROVIDERS: ADMIT Family Medicine; ATTEND Family Medicine
PROC: PANENDO (2017-10-15 09:15)